=== PATIENT | female | born 1940 | race Asian ===

== ENCOUNTER 2020-01-18 16:15 | Emergency (ER) | payer MEDICARE, SELFPAY ==
[2020-01-18] VITALS (7 sets, daily range): BP systolic 87–141; BP diastolic 40–76; PULSE 70–104; RESP 16–20; TEMP 36; O2SAT 98–99
--- NOTE | ~2020-01-18 | CT_ITS ---
EXAMINATION: CT brain wo con INDICATION: Dizziness and confusion COMPARISON: None TECHNIQUE: Standard unenhanced head CT. The dose-length product (DLP) was 605.33 mGy-cm. The mA was a djusted according to patient size. Iterative reconstruction technique was employed. FINDINGS: There is no acute intraparenchymal hemorrhage. No evidence of mass lesion. No evidence of a cute infarction. There is moderate periventricular and subcortical hypodensity probably related to sm all vessel ischemic disease. There is moderate prominence of the sulci and ventricles related to cere bral atrophy. Intracranial calcified cerebral atherosclerosis is noted. There are no extra-axial raman ections. There is no mass effect or midline shift. The orbits and soft tissues are unremarkable. The visualized sinuses and mastoid air cells are well aerated. IMPRESSION: 1. No acute intracranial abnormality. 2. Age related findings. Reviewed, dictated and finalized at location A.
--- NOTE | ~2020-01-18 | XR_ITS ---
EXAMINATION: XR chest 2V DATE: 01/18/2020 18:22 INDICATION: Dizziness and headache TECHNIQUE: AP and lateral views of the chest are obtained. COMPARISON: 08/14/2014 FINDINGS: There are minimal airspace opacities of the lower lung zones. There is no pleural effusion or pneumothorax. The cardiomediastinal silhouette is normal. There is moderate thoracic spondylosis. Calcified atherosclerosis is noted. IMPRESSION: 1. Airspace opacities of the lower lung zones, consistent with atelectasis versus pneumonia. Reviewed, dictated and finalized at location A. IMPRESSION: 1. Airspace opacities of the lower lung zones, consistent with atelectasis vers us pneumonia.
--- NOTE | 2020-01-18 16:47 | ECG_ITS ---
Measurements Intervals [place] Rate: 43 P: 50 KS: 150 QRS: -25 QRSD: 85 T: 33 QT: 382 QTc: 325 Interpretive Statements SINUS RHYTHM BORDERLINE R WAVE PROGRESSION, ANTERIOR LEADS INFERIOR INFARCT, AGE INDETERMINATE BASELINE WANDER- I, II, AVR, AVL, AVF ABNORMAL ECG Electronically Signed On 01-18-2020 17:09:33 CDT by Efrem Kolb D.O.
[2020-01-18 16:57] LABS: Basophils Percent Auto 0.5 % (0.2-1.2); Eosinophils Percent Auto 0.6 % (0-4.4); Hematocrit 43.9 % (37.0-47.0); Immature Granulocyte Absolute 0.03 K/mm3 (0.00-0.031); Immature Granulocyte Percent A 0.5 % (0-0.5); Lymphocytes Absolute Auto 1.55 K/mm3 (0.9-3.2); Lymphocytes Percent Auto 24.2 % (18.3-44.2); Mean Corpuscular HGB Conc 31.9 g/dl (32-36); Mean Corpuscular Hemoglobin 28.2 pg (26-34); Mean Corpuscular Volume 88.5 fl (80-100); Mean Platelet Volume 9.9 fl (7.4-10.4); Monocytes Absolute Auto 0.5 K/mm3 (0.1-0.6); Monocytes Percent Auto 7.8 % (2.6-8.5); Neutrophils Absolute Auto 4.3 K/mm3 (1.3-6.7); Neutrophils Percent Auto 66.4 % (45.5-73.1); Platelet Count Result 227 k/mm3 (150-375); Red Blood Count 4.96 M/mm3 (4.2-5.4); White Blood Count 6.4 K/mm3 (4.5-10.0)
[2020-01-18 17:08] LABS: Anion Gap 13 mmol/L (8-16); Blood Urea Nitrogen 21 mg/dL (7-17); Calcium 9.6 mg/dL (8.4-10.2); Carbon Dioxide 23 mmol/L (22-30); Chloride 109 mmol/L (98-107); Estimated CRCL calculation 30 ml/min; Estimated Glomerular Filt Rate 48; Glucose 153 mg/dL (65-105); Potassium 4.7 mmol/L (3.4-5.0); Sodium 145 mmol/L (137-145)
--- NOTE | 2020-01-18 17:54 | ED.DIZZY ---
HPI - Dizziness General Chief Complaint: Dizziness Stated Complaint: dizzy Time Seen by Provider: 01/18/20 17:43 Source: patient Mode of arrival: wheelchair Limitations: language barrier (daughter is at bedside translating) and dementia History of Present Illness HPI Narrative: Patient presents to the emergency department for lightheadedness. Per daughter patient was reporting she was dizzy to her today. Reports she tells her this after she takes her Ativan sometimes. Denies fever, headache, chest pain, shortness of breath, vomiting, or dysuria. Related Data Home Medications Medication Instructions Recorded Confirmed carbidopa-levodopa tablet PO DAILY 01/18/20 letrozole mg DAILY 01/18/20 lorazepam DAILY 01/18/20 losartan DAILY 01/18/20 memantine mg DAILY 01/18/20 quetiapine HS 01/18/20 Allergies Allergy/AdvReac Type Severity Reaction Status Date / Time haloperidol Allergy Severe Difficulty Verified 01/18/20 16:34 Breathing Review of Systems Review of Systems: Narrative: CONSTITUTIONAL: Denies fever EYES: Denies visual changes CARDIOVASCULAR: Denies chest pain RESPIRATORY: Denies dyspnea. GASTROINTESTINAL: Denies vomiting GENITOURINARY: Denies dysuria All systems reviewed & are unremarkable except as noted in HPI and below PMFSH Past Medical History Medical History (Updated 01/18/20 @ 19:57 by Isaura Vela PA-C) History of anxiety History of dementia History of hypertension History of Parkinson's disease Social History Social History Gender identity (if verbalized by the patient): Female Exam Narrative: Exam Narrative: GENERAL: Well-appearing, well-nourished, and in no acute distress. HEAD: Normocephalic, atraumatic. EYES: PERRLA and EOMI. ENT: Nares clear, no rhinorrhea or epistaxis. Mucous membranes moist. Oropharynx without tonsillar hypertrophy exudate or other lesions. Bilateral TMs pearly lopez non-bulging NECK: Supple. No adenopathy or masses. CHEST: Clear to auscultation. No respiratory distress. No wheezes rales or rhonchi HEART: Regular rate and rhythm. No murmur heard. Normal peripheral pulses. ABDOMEN: Soft, nontender, nondistended, normal active bowel sounds. EXTREMITIES: Normal range of motion. No edema. SKIN: Warm, dry, no rash. NEURO: No focal deficits. Alert and oriented x3. PSYCH: Normal mood and affect Course Vital Signs Vital signs: Vital Signs Temperature 96.8 F L 01/18/20 16:28 Pulse Rate 94 01/18/20 16:28 Respiratory Rate 16 01/18/20 16:28 Blood Pressure 87/60 L 01/18/20 16:28 Pulse Oximetry 99 01/18/20 16:28 Temperature 96.8 F L 01/18/20 16:28 Pulse Rate 99 01/18/20 19:02 Respiratory Rate 20 01/18/20 19:02 Blood Pressure 127/75 01/18/20 19:02 Pulse Oximetry 99 01/18/20 19:02 MDM - Dizziness MDM Narrative Medical decision making narrative: Patient presents to the emergency department for lightheadedness. Per daughter patient reports this sometimes when she takes her Ativan. Patient was orthostatic on arrival. Given IV fluids in the ED with relief of her symptoms. CBC without acute findings. Metabolic panel with creatinine of 1.1 and BUN of 21. Possible mild dehydration, although I do not have any recent labs to know her baseline kidney function. UA is without evidence of infection. Chest x-ray shows atelectasis versus pneumonia. Patient denies any fever cough. CT scan of the brain is without acute findings. EKG with nonspecific ST changes. Patient does not have any chest pain. Patient and family updated on case findings. Patient reports she is feeling better and would like to go home. Patient is stable and felt appropriate for further outpatient evaluation. She was given warnings to return to the ER Lab Data Attestation: I reviewed the patient's lab results. Result diagrams: 01/18/20 16:50 01/18/20 16:50 Labs: Lab Results 01/18/20 01/18/20 01/18/20 Range/Units 16:50 16:
[2020-01-18] MEDS: MECLIZINE HCL 25 MG TABLET PO (18:34)
[2020-01-18] MEDS: SODIUM CHLORIDE 0.9% IV 1,000 ML 999 ML IV CONT (18:34)
[2020-01-18 19:02] LABS: Add Urine Microscopic? YES; Appearance Urine Clear (Clear); Bilirubin Urine Negative (Negative); Blood Urine Negative (Negative); Color Urine Yellow (Yellow); Glucose Urine UA Negative (Negative); Hyaline Casts Urine 30-49 /lpf; Ketones Urine Trace mg/dL (Negative); Leukocyte Esterase Ur Negative LEU/UL (Negative); Mucus Urine Few /lpf; Nitrate Urine Negative (Negative); Protein Urine 1+ mg/dL (Negative); Specific Grav Ur 1.021 (1.001-1.035); Squamous Epithelial Cell Urine Rare /hpf (Few); Urobilinogen Urine Negative mg/dL (<2.0)
== END 2020-01-18 20:49 | disposition home or self-care (01) ==
PROVIDERS: Physician Assistant; Emergency Provider Emergency Medicine; PCP Family Medicine
DX: I95.1 Orthostatic hypotension (principal); F41.9 Anxiety disorder, unspecified; F03.90 Unspecified dementia, unspecified severity, without behavioral disturbance, psychotic disturbance, mood disturbance, and anxiety; I10 Essential (primary) hypertension; G20 Parkinson's disease; R91.8 Other nonspecific abnormal finding of lung field; R94.31 Abnormal electrocardiogram [ECG] [EKG]
CPT/HCPCS: 36415; 51701; 70450; 71046; 80048; 81001; 85025; 93005; 99284; A9270; J7030

== ENCOUNTER 2020-06-25 09:48 | Outpatient (CLI) | payer MEDICARE, SELFPAY | END 2020-06-25 09:49 | disposition home or self-care (01) | PROVIDERS: PCP Family Medicine | DX: Z23 Encounter for immunization (principal) | CPT/HCPCS: 0001A; 91300 ==

== ENCOUNTER 2020-07-16 09:48 | Outpatient (CLI) | payer MEDICARE, SELFPAY | END 2020-07-16 09:49 | disposition home or self-care (01) | LOC: ANHCOVIDVC 09:48 | PROVIDERS: PCP Family Medicine | DX: Z23 Encounter for immunization (principal) | CPT/HCPCS: 0002A; 91300 ==

== ENCOUNTER 2021-11-12 00:45 | Emergency (ER) | payer MEDICARE, SELFPAY ==
[2021-11-12 00:48] VITALS: BP 111/60; PULSE 79; RESP 22; TEMP 38.1; O2SAT 98
--- NOTE | 2021-11-12 01:03 | ED.GENADULT ---
HPI - General Adult General Chief complaint: Nausea/Vomiting/Diarrhea Stated complaint: N/V Time Seen by Provider: 11/12/21 00:46 History of Present Illness HPI narrative: 81-year-old female presenting to the emergency department for evaluation of nausea and vomiting that started approximately 1 hour prior to arrival. Patient denies any associate abdominal pain. Patient has no current emesis in the emergency department. Patient denies any other pain or complaints. Related Data Home Medications Medication Instructions Recorded Confirmed carbidopa ER 50 mg-levodopa 200 mg tablet PO DAILY 01/18/20 tablet,extended release letrozole 2.5 mg tablet mg DAILY 01/18/20 lorazepam 1 mg tablet DAILY 01/18/20 losartan 100 mg tablet DAILY 01/18/20 memantine 10 mg tablet mg DAILY 01/18/20 quetiapine 200 mg tablet HS 01/18/20 Allergies Allergy/AdvReac Type Severity Reaction Status Date / Time haloperidol Allergy Severe Difficulty Verified 01/18/20 16:34 Breathing Review of Systems Review of Systems: CONSTITUTIONAL: Denies fever, chills, or sweats. EYES: Denies visual changes, redness, or discharge. ENT: Denies rhinorrhea, congestion, sore throat, or otalgia. CARDIOVASCULAR: Denies chest pain, palpitations, or edema. RESPIRATORY: Denies cough or dyspnea. GASTROINTESTINAL: Denies abdominal pain does report some nausea and vomiting. GENITOURINARY: Denies dysuria or hematuria. SKIN: Denies rash or itching. MUSCULOSKELETAL: Denies back pain, joint pain, or myalgia. NEUROLOGIC: Denies headache, numbness, or weakness. [facility] Past Medical History Medical History (Updated 11/12/21 @ 03:42 by Flaco Martin MD) History of anxiety History of dementia History of hypertension History of Parkinson's disease Social History Social History Gender identity (if verbalized by the patient): Female Exam Narrative: APPEARANCE: Well appearing, no pain, no distress, well-nourished. HEAD: normocephalic, atraumatic. EYES: PERRLA/EOMI, conjunctivae clear. NOSE: Normal no drainage NECK: Supple. No adenopathy, no masses. RESPIRATORY: Airway patent, respirations nonlabored. Clear to auscultation bilaterally, no rales, rhonchi, wheezing. CARDIOVASCULAR: Regular rate and rhythm without murmurs rubs or gallops. ABDOMINAL: Soft, nontender, nondistended, normal bowel sounds MUSCULOSKELETAL: Moves all extremities. Strength/ROM intact, No edema, No calf tenderness. NEURO: Alert. Cranial nerves II through XII intact. Grossly intact SKIN: Warm, dry. Normal Color Course Course Emergency Course: Patient is tolerating p.o. Patient denies any complaints at this time. Patient does feel improved compared to arrival. Patient and daughter were updated on the results of the work-up and plan for discharge with close follow-up. Vital Signs Vital signs: Vital Signs Temperature 100.5 F H 11/12/21 00:48 Pulse Rate 79 11/12/21 00:48 Respiratory Rate 22 H 11/12/21 00:48 Blood Pressure 111/60 11/12/21 00:48 Pulse Oximetry 98 11/12/21 00:48 Oxygen Delivery Room Air 11/12/21 00:48 Temperature 98.9 F 11/12/21 02:19 Pulse Rate 77 11/12/21 02:07 Respiratory Rate 14 11/12/21 02:07 Blood Pressure 118/60 11/12/21 02:07 Pulse Oximetry 100 11/12/21 02:07 Oxygen Delivery Room Air 11/12/21 00:48 Medical Decision Making Vital Signs Vital Signs: Vital Signs Temperature 100.5 F H 11/12/21 00:48 Pulse Rate 79 11/12/21 00:48 Respiratory Rate 22 H 11/12/21 00:48 Blood Pressure 111/60 11/12/21 00:48 Pulse Oximetry 98 11/12/21 00:48 Oxygen Delivery Room Air 11/12/21 00:48 Temperature 98.9 F 11/12/21 02:19 Pulse Rate 77 11/12/21 02:07 Respiratory Rate 14 11/12/21 02:07 Blood Pressure 118/60 11/12/21 02:07 Pulse Oximetry 100 11/12/21 02:07 Oxygen Delivery Room Air 11/12/21 00:48 Lab Data Lab results reviewed: Yes I reviewed the patient's lab results. Result ana
[2021-11-12 01:21] LABS: Basophils Absolute Auto 0.1 K/mm3 (0.0-0.1); Basophils Percent Auto 0.5 % (0.2-1.2); Eosinophils Absolute Auto 0.1 K/mm3 (0-0.3); Eosinophils Percent Auto 0.5 % (0-4.4); Hematocrit 37.9 % (37.0-47.0); Hemoglobin 12.3 g/dL (12.0-15.0); Immature Granulocyte Absolute 0.11 K/mm3 (0.00-0.031); Immature Granulocyte Percent A 0.6 % (0-0.5); Lymphocytes Absolute Auto 1.58 K/mm3 (0.9-3.2); Lymphocytes Percent Auto 8.4 % (18.3-44.2); Mean Corpuscular HGB Conc 32.5 g/dl (32-36); Mean Corpuscular Hemoglobin 27.4 pg (26-34); Mean Corpuscular Volume 84.4 fl (80-100); Mean Platelet Volume 9.6 fl (7.4-10.4); Monocytes Absolute Auto 1.3 K/mm3 (0.1-0.6); Monocytes Percent Auto 6.9 % (2.6-8.5); Neutrophils Absolute Auto 15.7 K/mm3 (1.3-6.7); Neutrophils Percent Auto 83.1 % (45.5-73.1); Platelet Count Result 173 k/mm3 (150-375); Red Blood Count 4.49 M/mm3 (4.2-5.4); White Blood Count 18.9 K/mm3 (4.5-10.0)
[2021-11-12] MEDS: SODIUM CHLORIDE 0.9% IV 1,000 ML 999 ML IV CONT (01:24)
[2021-11-12] MEDS: ONDANSETRON INJ 4 MG/2 ML VIAL IV PUSH (01:24)
[2021-11-12 01:30] LABS: Lactic Acid Reflex 1.9 mmol/L (0.7-2.0)
[2021-11-12 01:31] LABS: Alanine Aminotransferase 12 U/L (6-35); Albumin Level 4.3 g/dL (3.5-5.1); Alkaline Phosphatase 73 U/L (38-126); Anion Gap 8 mmol/L (8-16); Aspartate Amino Transferase 26 U/L (14-36); Bilirubin,Total 1.1 mg/dL (0.2-1.3); Blood Urea Nitrogen 19 mg/dL (7-17); Calcium 8.9 mg/dL (8.4-10.2); Carbon Dioxide 26 mmol/L (22-30); Chloride 103 mmol/L (98-107); Estimated Glomerular Filt Rate 39; Glucose 132 mg/dL (65-110); Lipase 34 U/L (23-300); Potassium 3.1 mmol/L (3.4-5.0); Sodium 137 mmol/L (137-145)
[2021-11-12 01:57] LABS: SARS-CoV-2 RNA PCR Negative
[2021-11-12 02:07] VITALS: BP 118/60; PULSE 77; RESP 14; O2SAT 100
[2021-11-12 02:19] VITALS: TEMP 37.2
[2021-11-12 03:32] LABS: Appearance Urine Clear (Clear); Bilirubin Urine 1+ (Negative); Blood Urine 1+ (Negative); Color Urine Yellow (Yellow); Glucose Urine UA Trace mg/dL (Negative); Ketones Urine Negative (Negative); Leukocyte Esterase Ur Negative LEU/UL (Negative); Nitrate Urine Negative (Negative); Protein Urine 1+ mg/dL (Negative); Specific Grav Ur >= 1.030 (1.001-1.035); Urobilinogen Urine 0.2 mg/dL (<2.0); pH Urine 5.5 (5.0-9.0)
[2021-11-12 03:36] LABS: Add Urine Microscopic? YES; Bacteria Urine Trace /hpf; Mucus Urine Rare /lpf
== END 2021-11-12 04:30 | disposition home or self-care (01) ==
PROVIDERS: Emergency Provider Emergency Medicine; PCP Family Medicine
DX: R11.2 Nausea with vomiting, unspecified (principal); Z20.822 Contact with and (suspected) exposure to COVID-19; F03.90 Unspecified dementia, unspecified severity, without behavioral disturbance, psychotic disturbance, mood disturbance, and anxiety; I10 Essential (primary) hypertension; G20 Parkinson's disease; F41.9 Anxiety disorder, unspecified
CPT/HCPCS: 36415; 51701; 80053; 81001; 83605; 83690; 85025; 96361; 96365; 96375; 99284; C9803; J0131; J2405; J7030; U0003; U0005

== ENCOUNTER 2022-01-11 10:00 | Outpatient (RCR) | payer MEDICARE, SELFPAY ==
--- NOTE | 2021-12-14 11:22 | PTOPEVAL ---
PHYSICAL THERAPY INITIAL EVALUATION. Thank you for referring Debbie Trejo to [facility].? The patient is scheduled to be seen for therapy? 1x/week for 4 weeks. Please review, sign, date and return this plan of care RUMA. I agree with and certify that the following plan of care is medically necessary. Referring Physician Date Attending Provider: Kelton Hallman MD *PT Outpatient Evaluation Start: 12/14/21 Evaluation Information Diagnosis Parkinson's, decreased mobility Additional Evaluation Detail Subjective history received from patients daughter Davina Yates with pts verbal consent. Subjective Information Per daughter pt has Parkinson' Query Text:As Reported By Patient/ s, severe dementia, paranoia, Family and is on high level of anti- depressants. Pt lives at home with her daughter and walks with a rollator. Pt states every morning after breakfast they walk laps in their home together. Pts daughter states the goals is to get her to be stronger so she does not become eventually bedridden. Pain Assessment Pain Score 0: Self Report Upper Extremity Range of Motion Gross Upper Extremity Range of Motion able to touch head, shoulders, Comments low back, and toes Lower Extremity Range of Motion General Lower Extremity Range of Motion WFL/Left,WFL/Right Gross Lower Extremity Range of Motion WFL through functional Comments assessment - pt unable to follow consistent direction for formal assessment Lower Extremity Muscle Strength Testing Gross Lower Extremity Strength Grossly 3+/5 pt unable to follow consistent direction for formal assessment Upper Extremity Muscle Strength Testing Gross Upper Extremity Strength Comments grossly 3+/5 pt unable to follow consistent direction for formal assessment Balance Assessment Tinetti Balance Assessment Tinetti Composite Score (Balance + Gait) Interpretation of Scores High risk for falls(< 19) Time Up Go (TUG) Timed Up and Go Test (TUG) (Seconds) 59 Assistive Devices Walker, Wheeled Comments SBA for safety during sit to stand and during turning 5 Time Sit to Stand Time in Seconds 32 5 Time Sit to Stand Comments With use of UEs, lack of Query Text:Normative Data: If Greater terminal knee extension during Than 15 Seconds,
--- NOTE | 2022-01-11 12:36 | PTOPPROG ---
Assessment and note entered by Moses Wilson, PT, DPT Evaluation Information Assessment Status Progress Diagnosis Parkinson's Subjective Information Pt daughter states she has been getting up by herself more and walking around the house more. Pt daughter states she is walking without the use of an AD. Daughter reports no recent falls. She also reports she has improved in her ability to feed herself and lift her glass to take a drink, she was not doing this prior. Daughter also states her mother has gone to the bathroom and pulled up her pants on her own, and can also get into the shower without physical assist. Pt daughter states she is still fearful of her walking too far without supervision. Assessment PT Clinical Summary Debbie and her daughter Davina Yates present to therapy today for Debbie's progress report following 4 visits of skilled therapy to treat her decreased mobility d/t advancing Parkinson's. Today her daughter reports improved independence at home. She demonstrates improved times during her TUG and 5xSTS but this remains at a high risk of falls. Pt demonstrates decreased LE strength and muscle endurance but this is improving. Continuation of skilled physical therapy services are indicted to continue strengthening, to improve safety with functional mobility, to improve balance, and to promote independence with functional mobility. Plan of Care Interventions Gait Training,Neuro Re-education,Patient/Caregiver Educati,Therapeutic Activities,Therapeutic Exercise PT Services Indicated Yes Treatment Frequency and every other week for 2 months Duration These treatments will address the objective and functional deficits as defined above. The patient will be advanced safely and appropriately in order for the patient to progress towards his/her prior level of function. Additional exercises will be introduced and as well as a comprehensive home exercise program upon discharge, if needed, ?to ensure carryover of functional gains achieved in the clinic. This treatment plan has been reviewed and agreement upon by the patient.
== END 2022-03-14 23:59 | disposition home or self-care (01) ==
LOC: ANHPT 10:00
PROVIDERS: PCP Family Medicine; Visit Provider Family Medicine
DX: R26.9 Unspecified abnormalities of gait and mobility (principal)
CPT/HCPCS: 97110; 97112; 97116; 97162; 97530

== ENCOUNTER 2022-04-05 09:36 | Inpatient (IN) | payer MEDICARE, SELFPAY ==
[2022-04-05] VITALS (12 sets, daily range): BP systolic 142–203; BP diastolic 71–126; PULSE 75–100; RESP 12–29; TEMP 37.2–37.6; O2SAT 96–98
--- NOTE | ~2022-04-05 | US_ITS ---
EXAMINATION: US carotid duplex BI DATE: 04/06/2022 17:29 INDICATION: Infarct in right caudate nucleus. TECHNIQUE: Grayscale, color Doppler, and pulsed Doppler images of the cervical carotid arteries were obtained. The degree of vessel stenosis is placed in one of the following categories: normal, <50%, 5 0-69%, >=70% but less than near-occlusion, near-occlusion, or total occlusion. Note that percent sten osis relative to normal distal artery lumen diameter is indirectly measured from velocity measurement s as described by Sumit, et al. Radiology 2003; 229:340-346. COMPARISON: None. FINDINGS: RIGHT: The right common carotid artery (CCA) peak systolic velocity (PSV) is 88 cm/s. The right internal car otid artery (ICA) PSV is 140 cm/s. The right ICA end-diastolic velocity (EDV) is 31 cm/s. The right I CA/CCA PSV ratio is 1.6. Grayscale and color Doppler images yield an estimate of <50% diameter reduct ion from plaque in the ICA. There is antegrade flow in the right vertebral artery. LEFT: The left CCA PSV is 138 cm/s. The left ICA PSV is 147 cm/s. The left ICA EDV is 33 cm/s. The left ICA /CCA PSV ratio is 1.1. Grayscale and color Doppler images yield an estimate of <50% diameter reductio n from plaque in the ICA. There is antegrade flow in the left vertebral artery. IMPRESSION: 1. <50% stenosis in the right internal carotid artery. 2. <50% stenosis in the left internal carotid artery. Reviewed, dictated and finalized at location A. INE HEDDLE CLEANER
--- NOTE | ~2022-04-05 | XR_ITS ---
EXAMINATION: XR abdomen/kub 1V INDICATION: Nausea and vomiting TECHNIQUE: Supine view of the abdomen is obtained. COMPARISON: None FINDINGS: There is no free intraperitoneal gas or evidence of bowel obstruction. The bowel gas patter n is normal. A left pelvic calcification likely reflects a calcified uterine fibroid. 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 Phleboliths are noted in the pelvis. IMPRESSION: 1. No radiographic correlate for the patient's symptoms. Reviewed, dictated and finalized at location A. WARE DEVELOPER
--- NOTE | ~2022-04-05 | CT_ITS ---
EXAMINATION: CT brain wo con DATE: 04/05/2022 10:58 INDICATION: Dizziness. TECHNIQUE: Computed tomography (CT) of the head was performed without intravenous contrast. The mA wa s adjusted according to patient size. Iterative reconstruction technique was employed. The dose-lengt h product was 832.33 mGy-cm. COMPARISON: Head CT 01/18/2020 FINDINGS: There is diffuse brain volume loss. There are scattered areas of low attenuation in the cer ebral white matter, which is within normal limits for the patient's age. There is an old lacunar infa rct in right caudate nucleus. There is no intracranial hemorrhage, acute infarction, or abnormal intr acranial mass lesion. The ventricles are normal in size. The orbits are normal. There is mild mucosal thickening in the ethmoid sinuses. The mastoid air cells are normal. There is a likely implant in th e nose. IMPRESSION: 1. 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 Reviewed, dictated and finalized at location A. Y TABLE OPERATOR
--- NOTE | 2022-04-05 09:41 | ECG_ITS ---
Measurements Intervals [place] Rate: 80 P: 47 MI: 159 QRS: -20 QRSD: 82 T: 26 QT: 377 QTc: 436 Interpretive Statements SINUS RHYTHM INFERIOR MYOCARDIAL INFARCTION , PROBABLY OLD [40+ ms Q WAVE AND/OR ST/T ABNORMALITY IN II/aVF] COMPARED TO ECG 01/18/2020 16:48:22 NO SIGNIFICANT CHANGES Electronically Signed On 04-05-2022 16:32:57 [employer] DIRECTOR by Liyah Hodge M.D.
[2022-04-05 09:57] LABS: Basophils Percent Auto 0.4 % (0.2-1.2); Eosinophils Absolute Auto 0.2 K/mm3 (0-0.3); Eosinophils Percent Auto 2.1 % (0-4.4); Hematocrit 44.3 % (37.0-47.0); Hemoglobin 13.9 g/dL (12.0-15.0); Immature Granulocyte Absolute 0.03 K/mm3 (0.00-0.031); Immature Granulocyte Percent A 0.3 % (0-0.5); Lymphocytes Absolute Auto 3.27 K/mm3 (0.9-3.2); Lymphocytes Percent Auto 30.4 % (18.3-44.2); Mean Corpuscular HGB Conc 31.4 g/dl (32-36); Mean Corpuscular Hemoglobin 28.9 pg (26-34); Mean Corpuscular Volume 92.1 fl (80-100); Mean Platelet Volume 9.8 fl (7.4-10.4); Monocytes Absolute Auto 0.6 K/mm3 (0.1-0.6); Monocytes Percent Auto 5.8 % (2.6-8.5); Neutrophils Absolute Auto 6.6 K/mm3 (1.3-6.7); Platelet Count Result 176 k/mm3 (150-375); Red Blood Count 4.81 M/mm3 (4.2-5.4); Red Cell Distribution Width 13.4 % (11.5-14.5); White Blood Count 10.8 K/mm3 (4.5-10.0)
[2022-04-05 10:39] LABS: Add Urine Microscopic? YES; Appearance Urine Cloudy (Clear); Bilirubin Urine Negative (Negative); Blood Urine 1+ (Negative); Color Urine Yellow (Yellow); Glucose Urine UA Negative (Negative); Ketones Urine Negative (Negative); Leukocyte Esterase Ur 3+ LEU/UL (Negative); Nitrate Urine Positive (Negative); Protein Urine Trace mg/dL (Negative); Specific Grav Ur 1.015 (1.001-1.035); Urobilinogen Urine 0.2 mg/dL (<2.0)
[2022-04-05 10:41] LABS: Bacteria Urine 2+ /hpf; Mucus Urine Few /lpf; RBC Urine 21-50 /hpf (0-2); WBC Clumps Urine Present /HPF; WBC Urine >75 /hpf
--- NOTE | 2022-04-05 10:41 | ED.DIZZY ---
HPI - Dizziness General Chief Complaint: Dizziness Stated Complaint: dizzy/sick case Time Seen by Provider: 04/05/22 09:53 History of Present Illness HPI Narrative: 82-year-old female presenting to the emergency department for evaluation of dizziness. Patient told the daughter that she was having some dizziness but states that this dizziness has improved. Daughter states that the patient has also had increased confusion. Patient does have history of dementia. Upon arrival to the emergency department patient states that she was feeling dizzy but does not feel dizzy anymore. Patient is denying complaints at this time. Daughter states that the patient is still saying things that do not make sense. Patient was also hypertensive upon arrival to the emergency room. Daughter states that the primary care physician has not yet started medications for blood pressure because the patient's blood pressure is dynamic and off becomes hypotensive. Related Data Home Medications Medication Instructions Recorded Confirmed carbidopa ER 50 mg-levodopa 200 mg 50 - 200 tablet PO DAILY 01/18/20 04/05/22 tablet,extended release letrozole 2.5 mg tablet 2.5 mg PO DAILY 01/18/20 04/05/22 memantine 10 mg tablet 10 mg PO DAILY 01/18/20 04/05/22 quetiapine 100 mg tablet (Seroquel) 100 mg PO DAILY 04/05/22 04/05/22 Allergies Allergy/AdvReac Type Severity Reaction Status Date / Time haloperidol Allergy Severe Difficulty Verified 04/05/22 17:56 Breathing Review of Systems Review of Systems: CONSTITUTIONAL: Denies fever, chills, or sweats. EYES: Denies visual changes, redness, or discharge. ENT: Denies rhinorrhea, congestion, sore throat, or otalgia. CARDIOVASCULAR: Denies chest pain, palpitations, or edema. RESPIRATORY: Denies cough or dyspnea. GASTROINTESTINAL: Denies abdominal pain, nausea, vomiting, or diarrhea. GENITOURINARY: Denies dysuria or hematuria. SKIN: Denies rash or itching. MUSCULOSKELETAL: Denies back pain, joint pain, or myalgia. NEUROLOGIC: See HPI PSYCHIATRIC: Denies anxiety or depression. [facility] Past Medical History Medical History (Updated 04/05/22 @ 13:07 by Flaco Martin MD) History of anxiety History of dementia History of hypertension History of Parkinson's disease Family History Family History (Updated 04/05/22 @ 17:46 by Malinda Varela RN) Other Family history unknown Social History Social History Smoking status: Unknown if ever smoked Alcohol intake: never Substance use: never Substance use type: does not use Gender identity (if verbalized by the patient): Female Spiritual care concerns: No Exam Narrative: APPEARANCE: Well appearing, no pain, no distress, well-nourished. HEAD: normocephalic, atraumatic. EYES: PERRLA/EOMI, conjunctivae clear. NOSE: Normal no drainage EARS:TMS clear with good light reflex. THROAT: Pharynx clear, no exudate. NECK: Supple. No adenopathy, no masses. RESPIRATORY: Airway patent, respirations nonlabored. Clear to auscultation bilaterally, no rales, rhonchi, wheezing. CARDIOVASCULAR: Regular rate and rhythm without murmurs rubs or gallops. ABDOMINAL: Soft, nontender, nondistended, normal bowel sounds MUSCULOSKELETAL: Moves all extremities. Strength/ROM intact, No edema, No calf tenderness. NEURO: Alert. Cranial nerves II through XII intact. Grossly intact SKIN: Warm, dry. Normal Color PSYCHIATRIC: Normal affect/mood. Course Course Emergency Course: UA shows evidence of a urinary tract infection. Daughter feels that the patient is still confused. Patient's head CT was negative for acute intracranial abnormality. Patient is afebrile but does have a leukocytosis of 10.8. UA is significant for urinary tract infection. Is pending. Patient was started on antibiotics while in the emergency department. Patient was also negative for influenza RSV and COVID. Case was discussed with hospitalist and patient was accepted for admission for urinary trac
--- NOTE | 2022-04-05 10:51 | PC.NURSE ---
Pt to CT scan via stretcher at this time.
[2022-04-05] MEDS: hydrALAZINE HCL 20 MG/ML VIAL 10 MG IV PUSH (11:27)
[2022-04-05 11:49] LABS: Alanine Aminotransferase 19 U/L (6-35); Albumin Level 4.8 g/dL (3.5-5.1); Alkaline Phosphatase 86 U/L (38-126); Anion Gap 5 mmol/L (8-16); Aspartate Amino Transferase 31 U/L (14-36); Bilirubin,Total 0.5 mg/dL (0.2-1.3); Blood Urea Nitrogen 16 mg/dL (7-17); Calcium 9.5 mg/dL (8.4-10.2); Carbon Dioxide 31 mmol/L (22-30); Chloride 104 mmol/L (98-107); Estimated CRCL calculation 30 ml/min; Estimated Glomerular Filt Rate 60; Glucose 103 mg/dL (65-110); Potassium 4.3 mmol/L (3.4-5.0); Sodium 140 mmol/L (137-145)
[2022-04-05 12:15] LABS: Influenza A QL RT-PCR Negative (Negative); Influenza B QL RT-PCR Negative (Negative); RSV RNA, RT-PCR Negative (Negative); SARS-CoV-2 RNA PCR Negative
--- NOTE | 2022-04-05 14:45 | PM.IMHP ---
H&P: HPI History of Present Illness Date/Time: 04/05/22 14:45 Chief Complaint: Dizziness and nausea. Narrative: This is a pleasant 82-year-old female with history of Parkinson's disease, dementia, hypertension, anxiety, depression who presented to the emergency department from home for evaluation of dizziness and nausea. Given her dementia and increasing confusion from current illness, she is not the greatest historian and tends to revert back to her atka Tagalog though she can speak Kyrgyz. Her daughter Leigh helps provide history with the patient's permission. Daughter remarks that she is not always able to express her symptoms at baseline either. Yesterday the patient complained of dizziness, nausea, and loose stools and seemed to feel better after drinking 7 up. This morning she was once again complaining of nausea and daughter thought she looked sick and pale and she brought her in for evaluation. She was afebrile on arrival with stable vital signs. Urine was positive for nitrates, leukocyte esterase, bacteria, and white blood cells. She is being admitted in this setting for IV antibiotics. With further questioning the patient does endorse having dysuria for a couple of days. She is feeling better at this time. She denies fever, chills, sweats, and diarrhea. She has not had any abdominal pain. Review of Systems Review of Systems: Twelve systems were reviewed and are negative except for as per HPI. [facility] Past Medical History Medical History (Updated 04/05/22 @ 21:31 by Laine Espino PA-C) Anxiety and depression Breast cancer Cerebrovascular accident Dementia Hypertension Parkinsons disease Surgical History Surgical History (Updated 04/05/22 @ 21:24 by Laine Espino PA-C) History of lumpectomy Family History Family History (Updated 04/05/22 @ 21:24 by Laine Espino PA-C) Other Hypertension Social History Social History (Updated 04/05/22 @ 21:25 by Laine Espino PA-C) Social History: Surrogate medical decision maker: Leigh Maldonado, daughter. Code status: Full code. Smoking status: Never smoker Alcohol intake: never Substance use: never Substance use type: does not use Additional living arrangements comments: Originally from the [facility]. She has 4 children. Lives with daughter Leigh. 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 Spiritual care concerns: No Meds Home Medications and Allergies Home Medications Medication Instructions Recorded Confirmed Type carbidopa ER 50 mg-levodopa 200 mg 50 - 200 tablet PO DAILY 01/18/20 04/05/22 History tablet,extended release letrozole 2.5 mg tablet 2.5 mg PO DAILY 01/18/20 04/05/22 History memantine 10 mg tablet 10 mg PO DAILY 01/18/20 04/05/22 History quetiapine 100 mg tablet (Seroquel) 100 mg PO DAILY 04/05/22 04/05/22 History Allergies Allergy/AdvReac Type Severity Reaction Status Date / Time haloperidol Allergy Severe Difficulty Verified 04/05/22 17:56 Breathing Vital Signs Vital Signs - 24 hr 04/05/22 09:42 04/05/22 09:53 04/05/22 10:01 Temperature 99 F Pulse Rate 93 77 75 Respiratory Rate 20 12 Blood Pressure 203/91 H 193/74 H Pulse Oximetry 98 98 Oxygen Delivery Room Air 04/05/22 11:29 04/05/22 10:47 04/05/22 12:00 Temperature Pulse Rate 84 75 89 Respiratory Rate 20 29 H 16 Blood Pressure 185/77 H 142/120 H Pulse Oximetry 97 98 Oxygen Delivery 04/05/22 12:16 04/05/22 13:01 04/05/22 13:32 Temperature Pulse Rate 91 93 96 Respiratory Rate 21 H 17 22 H Blood Pressure 144/93 H 149/126 H 155/78 H Pulse Oximetry 97 Oxygen Delivery 04/05/22 14:50 04/05/22 17:07 Temperature Pulse Rate 100 93 Respiratory Rate 24 H 20 Blood Pressure 167/84 H 167/71 H Pulse Oximetry 98 97 Oxygen Delivery Exam Const: Other: Well-developed, mildly ill-appearing female supine in be
--- NOTE | 2022-04-05 17:44 | ADMGEN ---
This patient, Debbie Trejo, was admitted to [facility] Surg Room 316-01. Patient/family oriented to hospital policies and general routines including ID bracelet, bed and alarms, visiting hours, pain management, procedures, bathroom and other care routines, personal items, smoking policy, room service/diet, and visiting hours. Information on how to activate the Rapid Response Team has been discussed. Patient/Family are encouraged to report perceived risks to care and to ask questions if they do not understand what they are told or what they should do.
[2022-04-06 06:00] VITALS: BP 183/82; PULSE 67; RESP 13; TEMP 36.3; O2SAT 98
[2022-04-06] MEDS: hydrALAZINE HCL 20 MG/ML VIAL 10 MG IV PUSH (06:56)
[2022-04-06 08:00] VITALS: BP 119/62
[2022-04-06 08:03] VITALS: BP 101/63
[2022-04-06] MEDS: MEMANTINE 10 MG TABLET PO (08:29)
[2022-04-06] MEDS: QUEtiapine FUMARATE 100 MG TABLET PO (08:30)
[2022-04-06] MEDS: LETROZOLE (*CHEMO) 2.5 MG TABLET PO (08:30)
[2022-04-06] MEDS: CARBIDOPA/LEVODOPA 25/100 MG CR TABLET 2 TABLET PO (08:30)
--- NOTE | 2022-04-06 10:30 | P.PNIM_ITS ---
Progress Note: A&P Assessment and Plan (1) Urinary tract infection: Code(s): N39.0 - Urinary tract infection, site not specified Status: Acute Assessment and Plan: * presented with complaints of confusion * UA did appear infectious * continue ceftriaxone for now * awaiting urine culture * adjust therapy to sensitivities (2) Dizziness: Code(s): R42 - Dizziness and giddiness Status: Acute Assessment and Plan: * head CT shows old CVAs * fall precautions * orthostatics appear to be positive for hypotension * continue trend blood pressure * carotid Dopplers ordered (3) Hypertension: Code(s): I10 - Essential (primary) hypertension Status: Acute Assessment and Plan: * blood pressures have been noted to be elevated, this morning 183/82 * blood pressure currently stable at 101 systolic * continue to trend * hydralazine p.r.n. with parameters * probably high due to disorientation (4) Parkinsons disease: Code(s): G20 - Parkinson's disease Status: Acute Assessment and Plan: * Continue carbidopa-levodopa. * Initiate fall precautions. * Bedside swallow just showed problems with dentures (5) Dementia: Code(s): F03.90 - Unspecified dementia, unspecified severity, without behavioral disturbance, psychotic disturbance, mood disturbance, and anxiety Status: Acute Assessment and Plan: * Continue memantine and quetiapine. (6) Heart murmur: Code(s): R01.1 - Cardiac murmur, unspecified Status: Acute Assessment and Plan: * Echo ordered Plan Miralax and suppository ordered, looks to be either constipation or gas build up causing nausea Time Spent With Patient Time with patient: Greater than 35 minutes Subjective Date/time seen: 04/06/22 1030 Interval history: 04/06/22 1030 Patient was resting in bed comfortably. Daughter was present. Patient is still complaining of nausea. It was also noted that patient has not been eating much however her dentures are very loose in her mouth. She denies any chest pain, shortness a breath, vomiting, diarrhea, weakness or fatigue. She does state that she could be constipated. Daughter did state that she does but MiraLax on her milk in the morning to help her have bowel movements. She was probably roxy und A&O x1. 04/05/22? 14:45 This is a pleasant 82-year-old female with history of Parkinson's disease, dementia, hypertension, anxiety, depression who presented to the emergency department from home for evaluation of dizziness and nausea. Given her dementia and increasing confusion from current illness, she is not the greatest historian and tends to revert back to her [place] Tagalog though she can speak Ukrainian. Her daughter Leigh helps provide history with the patient's permission. Daughter remarks that she is not always able to express her symptoms at baseline either. Yesterday the patient complained of dizziness, nausea, and loose stools and seemed to feel better after drinking 7 up. This morning she was once again complaining of nausea and daughter thought she looked sick and pale and she brought her in for evaluation. She was afebrile on arrival with stable vital signs. Urine was positive for nitrates, leukocyte
--- NOTE | 2022-04-06 10:30 | PM.IMPN ---
Progress Note: A&P Assessment and Plan (1) Urinary tract infection: Code(s): N39.0 - Urinary tract infection, site not specified Status: Acute Assessment and Plan: presented with complaints of confusion UA did appear infectious continue ceftriaxone for now awaiting urine culture adjust therapy to sensitivities (2) Dizziness: Code(s): R42 - Dizziness and giddiness Status: Acute Assessment and Plan: head CT shows old CVAs fall precautions orthostatics appear to be positive for hypotension continue trend blood pressure carotid Dopplers ordered (3) Hypertension: Code(s): I10 - Essential (primary) hypertension Status: Acute Assessment and Plan: blood pressures have been noted to be elevated, this morning 183/82 blood pressure currently stable at 101 systolic continue to trend hydralazine p.r.n. with parameters probably high due to disorientation (4) Parkinsons disease: Code(s): G20 - Parkinson's disease Status: Acute Assessment and Plan: Continue carbidopa-levodopa. Initiate fall precautions. Bedside swallow just showed problems with dentures (5) Dementia: Code(s): F03.90 - Unspecified dementia, unspecified severity, without behavioral disturbance, psychotic disturbance, mood disturbance, and anxiety Status: Acute Assessment and Plan: Continue memantine and quetiapine. (6) Heart murmur: Code(s): R01.1 - Cardiac murmur, unspecified Status: Acute Assessment and Plan: Echo ordered Plan Miralax and suppository ordered, looks to be either constipation or gas build up causing nausea Time Spent With Patient Time with patient: Greater than 35 minutes Subjective Date/time seen: 04/06/22 1030 Interval history: 04/06/22 1030 Patient was resting in bed comfortably. Daughter was present. Patient is still complaining of nausea. It was also noted that patient has not been eating much however her dentures are very loose in her mouth. She denies any chest pain, shortness a breath, vomiting, diarrhea, weakness or fatigue. She does state that she could be constipated. Daughter did state that she does but MiraLax on her milk in the morning to help her have bowel movements. She was probably around A&O x1. 04/05/22? 14:45 This is a pleasant 82-year-old female with history of Parkinson's disease, dementia, hypertension, anxiety, depression who presented to the emergency department from home for evaluation of dizziness and nausea. Given her dementia and increasing confusion from current illness, she is not the greatest historian and tends to revert back to her [place] Tagalog though she can speak Yemeni. Her daughter Leigh helps provide history with the patient's permission. Daughter remarks that she is not always able to express her symptoms at baseline either. Yesterday the patient complained of dizziness, nausea, and loose stools and seemed to feel better after drinking 7 up. This morning she was once again complaining of nausea and daughter thought she looked sick and pale and she brought her in for evaluation. She was afebrile on arrival with stable vital signs. Urine was positive for nitrates, leukocyte esterase, bacteria, and white blood cells. She is being admitted in this setting for IV antibiotics. With further questioning the patient does endorse having dysuria for a couple of days. She is feeling better at this time.? She denies fever, chills, sweats, and diarrhea. She has not had any abdominal pain. Review of Systems Review of Systems: All systems reviewed & are unremarkable except as noted in HPI and below Exam Narrative: General: well-nourished, well-appearing 82-year-old female, Lying in bed, comfortable, NARD Neuro: awake, alert and oriented x1, speech michael
[2022-04-06] MEDS: polyethylene glycoL 3350 17 GM POWD.PACK PO (10:48)
[2022-04-06] MEDS: ONDANSETRON INJ 4 MG/2 ML VIAL IV PUSH (10:48)
--- NOTE | 2022-04-06 11:19 | PCSTNOTE ---
Please refer to the Bedside Swallow Evaluation in the EMR. Please note, silent aspiration cannot be ruled out at bedside.
[2022-04-06 14:00] VITALS: BP 125/53; PULSE 91; RESP 14; TEMP 36; O2SAT 98
[2022-04-06] MEDS: BISACODYL 10 MG SUPPOSITORY RECTAL (15:07)
[2022-04-06 20:00] VITALS: BP 117/68; PULSE 80; RESP 16; TEMP 36.8; O2SAT 96
--- NOTE | 2022-04-06 21:36 | ECHO_ITS ---
Patient Info Name: Debbie Trejo Age: 82 years : 1940 Gender: Female Ht: 60 in Wt: 117 lbs BSA: 1.51 m2 HR: 67 bpm BP: 183 / 82 mmHg Heart Rhythm: Sinus Rhythm Technical Quality: Fair Exam Date: 04/06/2022 1:20 PM Exam Location: [facility] Exam Room: 316 Patient Status: Inpatient Admit Date: 04/05/2022 Staff Ordering Physician: Laine Espino PA-C Saturation Equipment Operator: Zulema Otto RCS Attending Provider: Hussein Klein MD Referring Physician: Srinivas MONAE; Exam Type: CA echo doppler color flow Study Info Indications - MURMUR HTN DIZZINESS Complete two-dimensional, color flow and Doppler transthoracic echocardiogram is performed. Summary 1. Complete two-dimensional, color flow and Doppler transthoracic echocardiogram is performed. 2. Normal left ventricular size with mild concentric hypertrophy. Hyperdynamic systolic function of all segments, ejection fraction 77%. No segmental wall motion abnormalities. Grade 2 diastolic dysfunction is present. 3. Left atrial chamber dimension is mildly enlarged. 4. There is moderate aortic valve stenosis with a peak velocity of 329 cm/s, mean gradient of 25 mmHg, and aortic valve area of 1.6 cm2. Moderate aortic valve calcification. 5. The mitral valve annulus is severely calcified, with no significant stenosis or regurgitation. 6. Mild pulmonary hypertension, estimated pulmonary arterial systolic pressure is 38 mmHg. 7. Calcified aortic root. 8. Normal sinus rhythm. Left Ventricle Left ventricular chamber dimension is mildly enlarged. Left ventricular systolic function is normal, estimated at >70%. There is mildly increased left ventricular wall thickness. Left ventricular septal wall motion is normal. The left ventricular diastolic function is grade II diastolic dysfunction. Right Ventricle Right ventricular chamber dimension is normal. Right ventricular systolic function is normal. Left Atria Left atrial chamber dimension is mildly enlarged. Right Atria Right atrial chamber dimension is normal. Aortic Valve The aortic valve is trileaflet. There is no aortic valve sclerosis. There is moderate aortic valve stenosis with a peak velocity of 329 cm/s, mean gradient of 25 mmHg, and aortic valve area of 1.6 cm2. Moderate aortic valve calcification. There is trace aortic valve regurgitation. There is moderate aortic valve calcification. Pulmonic Valve The pulmonic valve is normal. There is no pulmonic valve stenosis. There is no pulmonic regurgitation. Mitral Valve The mitral valve has thickened leaflets. There is no mitral valve stenosis. There is no mitral valve regurgitation. The mitral valve annulus is severely calcified, with no significant stenosis or regurgitation. Tricuspid Valve The tricuspid valve leaflets are normal. There is no significant tricuspid valve stenosis. There is trace tricuspid valve regurgitation. Mild pulmonary hypertension, estimated pulmonary arterial systolic pressure is 38 mmHg. Pericardium/Pleural The pericardium appears normal. There is no pericardial effusion. Inferior Vena Cava Normal inferior vena cava with >50% collapse upon inspiration consistent with Empty right atrial pressure, 10 mmHg. Aorta The aortic root size at the sinus of Valsalva is normal. The prox ascending aorta size is normal. Left Ventricular Outflow Tract Name
[2022-04-06 22:00] VITALS: BP 117/60; BP 90/58; PULSE 80; RESP 16; TEMP 36.8; O2SAT 96
[2022-04-07] VITALS (8 sets, daily range): BP systolic 101–149; BP diastolic 55–86; PULSE 63–89; RESP 16–20; TEMP 36.5–36.8; O2SAT 95–100
--- NOTE | 2022-04-07 08:45 | P.PNIM_ITS ---
Progress Note: A&P Assessment and Plan (1) Urinary tract infection: Code(s): N39.0 - Urinary tract infection, site not specified Status: Acute Assessment and Plan: * presented with complaints of confusion * UA did appear infectious * Change ceftriaxone to augmentin * urine culture grew E.coli * adjust therapy to sensitivities (2) Dizziness: Code(s): R42 - Dizziness and giddiness Status: Acute Assessment and Plan: * head CT shows old CVAs * fall precautions * orthostatics appear to be positive for hypotension * continue trend blood pressure * carotid Dopplers <50% bilaterally (3) Hypertension: Code(s): I10 - Essential (primary) hypertension Status: Acute Assessment and Plan: * blood pressures have been noted to be elevated, this morning 110/68 * continue to trend * hydralazine p.r.n. with parameters * probably high due to disorientation (4) Parkinsons disease: Code(s): G20 - Parkinson's disease Status: Acute Assessment and Plan: * Continue carbidopa-levodopa. * Initiate fall precautions. * Bedside swallow just showed problems with dentures (5) Dementia: Code(s): F03.90 - Unspecified dementia, unspecified severity, without behavioral disturbance, psychotic disturbance, mood disturbance, and anxiety Status: Acute Assessment and Plan: * Continue memantine and quetiapine. (6) Heart murmur: Code(s): R01.1 - Cardiac murmur, unspecified Status: Acute Assessment and Plan: * Aortic valve is moderately stenosed * Echo showed EF of 77% with grade 2 diastolic dysfunction Plan Miralax and suppository ordered, looks to be either constipation or gas build up causing nausea Subjective Date/time seen: 04/07/22 0845 Interval history: 04/07/22 08 patient was sleeping however was complaining of nausea. Patient's daughter was present stated that the patient did have a good breakfast. She denies any chest pain, shortness a breath. She does seem a little lethargic today. Urine culture did grow E coli. Will continue wait for sensitivities at this time. 04/06/22 1030 Patient was resting in bed comfortably. Daughter was present. Patient is still complaining of nausea. It was also noted that patient has not been eating much however her dentures are very loose in her mouth. She denies any chest pain, shortness a breath, vomiting, diarrhea, weakness or fatigue. She does state that she could be constipated. Daughter did state that she does but MiraLax on her milk in the morning to help her have bowel movements. She was probably around A&O x1. 04/05/22? 14:45 This is a pleasant 82-year-old female with history of Parkinson's disease, dementia, hypertension, anxiety, depression who presented to the emergency department from home for evaluation of dizziness and nausea. Given her dementia and increasing confusion from current illness, she is not the greatest historian and tends to revert back to her [place] Tagalog though she can speak Romansh. Her daughter Leigh helps provide history with the patient's permission. Daughter remarks that she is not always able to express her symptoms at baseline either. Yesterday the patient complained of diz
--- NOTE | 2022-04-07 08:45 | PM.IMPN ---
Progress Note: A&P Assessment and Plan (1) Urinary tract infection: Code(s): N39.0 - Urinary tract infection, site not specified Status: Acute Assessment and Plan: presented with complaints of confusion UA did appear infectious Change ceftriaxone to augmentin urine culture grew E.coli adjust therapy to sensitivities (2) Dizziness: Code(s): R42 - Dizziness and giddiness Status: Acute Assessment and Plan: head CT shows old CVAs fall precautions orthostatics appear to be positive for hypotension continue trend blood pressure carotid Dopplers <50% bilaterally (3) Hypertension: Code(s): I10 - Essential (primary) hypertension Status: Acute Assessment and Plan: blood pressures have been noted to be elevated, this morning 110/68 continue to trend hydralazine p.r.n. with parameters probably high due to disorientation (4) Parkinsons disease: Code(s): G20 - Parkinson's disease Status: Acute Assessment and Plan: Continue carbidopa-levodopa. Initiate fall precautions. Bedside swallow just showed problems with dentures (5) Dementia: Code(s): F03.90 - Unspecified dementia, unspecified severity, without behavioral disturbance, psychotic disturbance, mood disturbance, and anxiety Status: Acute Assessment and Plan: Continue memantine and quetiapine. (6) Heart murmur: Code(s): R01.1 - Cardiac murmur, unspecified Status: Acute Assessment and Plan: Aortic valve is moderately stenosed Echo showed EF of 77% with grade 2 diastolic dysfunction Plan Miralax and suppository ordered, looks to be either constipation or gas build up causing nausea Subjective Date/time seen: 04/07/22 0845 Interval history: 04/07/22 08 patient was sleeping however was complaining of nausea. Patient's daughter was present stated that the patient did have a good breakfast. She denies any chest pain, shortness a breath. She does seem a little lethargic today. Urine culture did grow E coli. Will continue wait for sensitivities at this time. 04/06/22 1030 Patient was resting in bed comfortably. Daughter was present. Patient is still complaining of nausea. It was also noted that patient has not been eating much however her dentures are very loose in her mouth. She denies any chest pain, shortness a breath, vomiting, diarrhea, weakness or fatigue. She does state that she could be constipated. Daughter did state that she does but MiraLax on her milk in the morning to help her have bowel movements. She was probably around A&O x1. 04/05/22? 14:45 This is a pleasant 82-year-old female with history of Parkinson's disease, dementia, hypertension, anxiety, depression who presented to the emergency department from home for evaluation of dizziness and nausea. Given her dementia and increasing confusion from current illness, she is not the greatest historian and tends to revert back to her [place] Tagalog though she can speak Tongan. Her daughter Leigh helps provide history with the patient's permission. Daughter remarks that she is not always able to express her symptoms at baseline either. Yesterday the patient complained of dizziness, nausea, and loose stools and seemed to feel better after drinking 7 up. This morning she was once again complaining of nausea and daughter thought she looked sick and pale and she brought her in for evaluation. She was afebrile on arrival with stable vital signs. Urine was positive for nitrates, leukocyte esterase, bacteria, and white blood cells. She is being admitted in this setting for IV antibiotics. With further questioning the patient does endorse having dysuria for a couple of days. She is feeling better at this time.? She denies fever, chills, sweats, and diarrhea. Sh
[2022-04-07] MEDS: MEMANTINE 10 MG TABLET PO (08:55)
[2022-04-07] MEDS: LETROZOLE (*CHEMO) 2.5 MG TABLET PO (08:55)
[2022-04-07] MEDS: QUEtiapine FUMARATE 100 MG TABLET PO (08:55)
[2022-04-07] MEDS: polyethylene glycoL 3350 17 GM POWD.PACK PO (08:55)
[2022-04-07] MEDS: CARBIDOPA/LEVODOPA 25/100 MG CR TABLET 2 TABLET PO (08:55)
[2022-04-07] MEDS: METOCLOPRAMIDE HCL INJ 10 MG/2 ML VIAL IV PUSH (12:27)
[2022-04-08 05:40] VITALS: BP 112/69; PULSE 78; RESP 16; TEMP 36.6; O2SAT 95
[2022-04-08 07:06] LABS: Basophils Absolute Auto 0.1 K/mm3 (0.0-0.1); Basophils Percent Auto 0.8 % (0.2-1.2); Eosinophils Absolute Auto 0.2 K/mm3 (0-0.3); Eosinophils Percent Auto 3.2 % (0-4.4); Hematocrit 41.2 % (37.0-47.0); Immature Granulocyte Absolute 0.02 K/mm3 (0.00-0.031); Immature Granulocyte Percent A 0.3 % (0-0.5); Lymphocytes Absolute Auto 2.62 K/mm3 (0.9-3.2); Lymphocytes Percent Auto 36.4 % (18.3-44.2); Mean Corpuscular HGB Conc 31.6 g/dl (32-36); Mean Corpuscular Hemoglobin 28.8 pg (26-34); Mean Corpuscular Volume 91.4 fl (80-100); Mean Platelet Volume 9.7 fl (7.4-10.4); Monocytes Absolute Auto 0.6 K/mm3 (0.1-0.6); Monocytes Percent Auto 8.1 % (2.6-8.5); Neutrophils Absolute Auto 3.7 K/mm3 (1.3-6.7); Neutrophils Percent Auto 51.2 % (45.5-73.1); Platelet Count Result 182 k/mm3 (150-375); Red Blood Count 4.51 M/mm3 (4.2-5.4); Red Cell Distribution Width 13.2 % (11.5-14.5); White Blood Count 7.2 K/mm3 (4.5-10.0)
[2022-04-08 07:19] LABS: Alanine Aminotransferase 14 U/L (6-35); Albumin Level 4.2 g/dL (3.5-5.1); Alkaline Phosphatase 67 U/L (38-126); Anion Gap 7 mmol/L (8-16); Aspartate Amino Transferase 31 U/L (14-36); Bilirubin,Total 0.5 mg/dL (0.2-1.3); Blood Urea Nitrogen 18 mg/dL (7-17); Calcium 8.9 mg/dL (8.4-10.2); Carbon Dioxide 28 mmol/L (22-30); Chloride 106 mmol/L (98-107); Estimated CRCL calculation 29 ml/min; Estimated Glomerular Filt Rate 60; Glucose 99 mg/dL (65-110); Magnesium 2.2 mg/dL (1.6-2.3); Potassium 3.7 mmol/L (3.4-5.0); Sodium 141 mmol/L (137-145)
[2022-04-08] MEDS: LETROZOLE (*CHEMO) 2.5 MG TABLET PO (08:32)
[2022-04-08] MEDS: AMOXICILLIN/CLAVULANATE K 875-125 MG TAB 1 TABLET PO (08:32)
[2022-04-08] MEDS: CARBIDOPA/LEVODOPA 25/100 MG CR TABLET 2 TABLET PO (08:32)
[2022-04-08] MEDS: QUEtiapine FUMARATE 100 MG TABLET PO (08:32)
[2022-04-08] MEDS: MEMANTINE 10 MG TABLET PO (08:32)
[2022-04-08] MEDS: polyethylene glycoL 3350 17 GM POWD.PACK PO (08:32)
--- NOTE | 2022-04-08 09:15 | PM.DS ---
DS: Admitting Diagnosis Discharge Date 04/08/22 0915 Admitting Diagnosis UTI DS: Discharge Diagnosis Discharge Diagnosis (1) Urinary tract infection: Code(s): N39.0 - Urinary tract infection, site not specified Status: Acute Assessment and Plan: presented with complaints of confusion UA did appear infectious Change ceftriaxone to augmentin urine culture grew E.coli adjust therapy to sensitivities (2) Dizziness: Code(s): R42 - Dizziness and giddiness Status: Acute Assessment and Plan: head CT shows old CVAs fall precautions orthostatics appear to be positive for hypotension continue trend blood pressure carotid Dopplers <50% bilaterally (3) Hypertension: Code(s): I10 - Essential (primary) hypertension Status: Acute Assessment and Plan: blood pressures have been noted to be elevated, this morning 110/68 continue to trend hydralazine p.r.n. with parameters probably high due to disorientation (4) Parkinsons disease: Code(s): G20 - Parkinson's disease Status: Acute Assessment and Plan: Continue carbidopa-levodopa. Initiate fall precautions. Bedside swallow just showed problems with dentures (5) Dementia: Code(s): F03.90 - Unspecified dementia, unspecified severity, without behavioral disturbance, psychotic disturbance, mood disturbance, and anxiety Status: Acute Assessment and Plan: Continue memantine and quetiapine. (6) Heart murmur: Code(s): R01.1 - Cardiac murmur, unspecified Status: Acute Assessment and Plan: Aortic valve is moderately stenosed Echo showed EF of 77% with grade 2 diastolic dysfunction Plan Miralax and suppository ordered, looks to be either constipation or gas build up causing nausea DS: Summary Hospital Course Hospital Course: Patient is an 82-year-old female with past medical history of Parkinson's, dementia, hypertension, anxiety, depression who presented to the ED for dizziness and nausea. Patient also had a little bit of an increased confusion however resolved quickly. Daughter was present and gave most of history upon arrival patient was noted to have some leukocytosis and her UA did appear to be infectious. Patient noted to have a UTI for urine culture. Patient was started on ceftriaxone however has been changed to p.o. Augmentin has been tolerating well. Patient was also experiencing a lot of nausea and vomiting. patient was given Zofran in a suppository as they KUB did appear to have a little bit of constipation. Patient also been complaining of dizziness head CT was performed and showed old CVAs nothing new. Carotid Doppler also showed less than 50% stenosis bilaterally. Patient also had Ortho static blood pressures performed which did not show any hypotension. Blood pressures have been very elevated upon arrival however have leveled off and is currently 112/69. Labs and vital signs are stable at this time patient is stable for discharge. Patient did work with PT and OT and appears to be at her baseline with activity. Daughter was in the room and did agree as well. Patient will have home health for PT and OT needs. Patient is being discharged home and is stable for discharge at this time. daughter was present the room and all questions were answered plan of care was updated. Status at Discharge Functional status at discharge: uses cane/walker Overall status at discharge: patient is progressing back to baseline Time Spent with Patient Time attestation: Total time spent providing and/or coordinating discharge services: 38 minutes Time spent: Greater than 30 minutes Specific discharge activities: Diagnostic testing, chart review, developing a treatment plan, education, care coordination documentation, physical exam, result rev
[2022-04-08] MEDS: SENNA/DOCUSATE SODIUM TABLET 1 TAB PO (10:02)
== END 2022-04-08 14:53 | disposition home health service (06) | DRG 690 ==
LOC: ANHED 12:39 → ANH3MEDSUR 17:05
PROVIDERS: Admitting Provider Internal Medicine; Emergency Provider Emergency Medicine; PCP Family Medicine; Visit Provider Nurse Practitioner
DX: N39.0 Urinary tract infection, site not specified (principal); B96.20 Unspecified Escherichia coli [E. coli] as the cause of diseases classified elsewhere; G20 Parkinson's disease; I10 Essential (primary) hypertension; F03.90 Unspecified dementia, unspecified severity, without behavioral disturbance, psychotic disturbance, mood disturbance, and anxiety; R01.1 Cardiac murmur, unspecified; K59.00 Constipation, unspecified; Z20.822 Contact with and (suspected) exposure to COVID-19; F41.9 Anxiety disorder, unspecified; F32.A Depression, unspecified; Z85.3 Personal history of malignant neoplasm of breast; Z86.73 Personal history of transient ischemic attack (TIA), and cerebral infarction without residual deficits
CPT/HCPCS: 36415; 70450; 74018; 80053; 81001; 83735; 85025; 87040; 87077; 87086; 87088; 87186; 87637; 92610; 93005; 93306; 93880; 96365; 96375; 97161; 97165; 99285; A9270; J0360; J0696; J2405; J2765

== ENCOUNTER 2022-07-10 20:14 | Inpatient (IN) | payer MEDICARE, SELFPAY ==
--- NOTE | ~2022-07-10 | CT_ITS ---
CT of the Abdomen and Pelvis: Indication: Cholecystitis Technique: 2.5 mm axial scans were obtained through the abdomen and pelvis following intravenous adm inistration of 100 cc of Omnipaque 350. Dose reduction technique was used on this scan by utilizing a utomated exposure control and iterative reconstruction technique. The dose-length product (DLP) was 2 13.51 mGy-cm. Findings: Scans through the lung bases are unremarkable. There is diffuse gallbladder wall thickening and mild pericholecystic fluid. Common bile duct is diff usely dilated to 12 mm in diameter. There is mild central intrahepatic biliary dilatation. No other h epatic parenchymal abnormality seen. The spleen, pancreas, adrenals and kidneys are within normal cortes its. There are atherosclerotic calcifications of the aorta. No lymphadenopathy. No bowel obstruction or bowel wall thickening. There is no evidence to suggest acute appendicitis. Images through the pelvis were performed. 4.7 cm densely calcified uterine fibroid is present. Urinar y bladder unremarkable. There is a somewhat U shaped cystic mass or collection below the pubic symphy sis with several internal calcifications present (axial image [id number]), suggestive of urethral divert iculum. This measures approximately 2.8 x 1.2 x 2.7 cm in size. Impression: Gallbladder wall thickening and/or pericholecystic fluid are consistent with acute cholecystitis. Cor relate clinically. Consider HIDA scan as indicated. Internal and external biliary dilatation, as detailed above. No definite obstructing mass identified. 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 Fibroid uterus, as above. Reviewed, dictated and finalized at [facility]. Impression: Gallbladder wall thickening and/or pericholecystic fluid are consistent with ac theodore cholecystitis. Correlate clinically. Consider HIDA scan as indicated. Internal and external biliary dilatation, as detailed above. No definite obstru cting mass identified. 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 Fibroid uterus, as above.
--- NOTE | ~2022-07-10 | NM_ITS ---
EXAMINATION: NM hepatobiliary w pharm DATE: 07/12/2022 17:00 INDICATION: Right upper quadrant abdominal pain and prior CT and ultrasound findings consistent with acute cholecystitis. COMPARISON: CT dated 07/11/2022 and ultrasound dated 07/12/2022 TECHNIQUE: 3.1 mCi Tc-99m mebrofenin (Choletec) was administered intravenously. Scintigraphic images of the abdomen were obtained for one hour. At the 1 hour time 0.2 mg morphine was administered by sl ow intravenous infusion, and imaging was continued for and additional 30 minutes. FINDINGS: There is normal clearance of radiotracer from the blood pool. There is homogeneous tracer uptake by t he liver. Activity progresses to the common bile duct by 25 minutes with activity seen in the duoden um by 15 minutes. No evident activity in the gallbladder either during the first hour of imaging or i n the 30 minutes following intravenous administration which would be consistent with acute cholecysti tis. IMPRESSION: 1. No evident activity in the gallbladder including 30 minutes post morphine administration which wo uld be consistent with acute cholecystitis. Reviewed, dictated and finalized at location [facility]. IMPRESSION: 1. No evident activity in the gallbladder including 30 minutes post morphine a dministration which would be consistent with acute cholecystitis.
--- NOTE | ~2022-07-10 | US_ITS ---
EXAMINATION: US abdomen limited DATE: 07/12/2022 14:42 INDICATION: RUQ pain TECHNIQUE: Multiple grayscale and Doppler ultrasound images of limited portions of the abdomen were o btained. COMPARISON: CT abdomen pelvis 07/11/2022. FINDINGS: Dilated pancreatic duct, otherwise the visualized portions of the pancreas are normal. The liver is normal with normal echogenicity and echotexture. No surface nodularity. Normal hepatopetal f low in the main portal vein. Echogenic foci within the gallbladder lumen. Gallbladder wall thickening . Pericholecystic fluid. The common bile duct measures 14 mm mm. Crockett's sign not evaluated due to a ltered mental status. IMPRESSION: Cholelithiasis, with gallbladder wall thickening and pericholecystic fluid as can be seen with acute cholecystitis. Intra and extrahepatic bile duct and pancreatic duct dilation, without identification of an obstructing bile duct stone or mass. Reviewed, dictated and finalized at location [facility]. IMPRESSION: Cholelithiasis, with gallbladder wall thickening and pericholecystic fluid as c an be seen with acute cholecystitis. Intra and extrahepatic bile duct and pancr eatic duct dilation, without identification of an obstructing bile duct stone o r mass.
[2022-07-10 20:15] VITALS: BP 112/69; PULSE 79; RESP 20; TEMP 36.4; O2SAT 97
[2022-07-10 22:09] LABS: Basophils Absolute Auto 0.1 K/mm3 (0.0-0.1); Basophils Percent Auto 0.3 % (0.2-1.2); Eosinophils Percent Auto 0.1 % (0-4.4); Hematocrit 40.9 % (37.0-47.0); Hemoglobin 13.5 g/dL (12.0-15.0); Immature Granulocyte Absolute 0.09 K/mm3 (0.00-0.031); Immature Granulocyte Percent A 0.5 % (0-0.5); Lymphocytes Absolute Auto 1.55 K/mm3 (0.9-3.2); Lymphocytes Percent Auto 7.9 % (18.3-44.2); Mean Corpuscular Hemoglobin 28.5 pg (26-34); Mean Corpuscular Volume 86.5 fl (80-100); Mean Platelet Volume 9.9 fl (7.4-10.4); Monocytes Absolute Auto 1.4 K/mm3 (0.1-0.6); Monocytes Percent Auto 7.3 % (2.6-8.5); Neutrophils Absolute Auto 16.6 K/mm3 (1.3-6.7); Neutrophils Percent Auto 83.9 % (45.5-73.1); Platelet Count Result 163 k/mm3 (150-375); Red Blood Count 4.73 M/mm3 (4.2-5.4); Red Cell Distribution Width 13.2 % (11.5-14.5); White Blood Count 19.7 K/mm3 (4.5-10.0)
[2022-07-10 22:17] LABS: Alanine Aminotransferase 12 U/L (6-35); Albumin Level 4.6 g/dL (3.5-5.1); Alkaline Phosphatase 73 U/L (38-126); Anion Gap 5 mmol/L (8-16); Aspartate Amino Transferase 29 U/L (14-36); Bilirubin,Total 1.2 mg/dL (0.2-1.3); Blood Urea Nitrogen 14 mg/dL (7-17); Calcium 9.3 mg/dL (8.4-10.2); Carbon Dioxide 25 mmol/L (22-30); Chloride 106 mmol/L (98-107); Estimated Glomerular Filt Rate 60; Glucose 128 mg/dL (65-110); Lipase 97 U/L (23-300); Potassium 3.9 mmol/L (3.4-5.0); Sodium 136 mmol/L (137-145)
[2022-07-10 23:24] VITALS: BP 115/72; PULSE 72; RESP 18; O2SAT 97
[2022-07-11] VITALS (35 sets, daily range): BP systolic 128–175; BP diastolic 54–117; PULSE 62–102; RESP 15–28; TEMP 36.2–37.1; O2SAT 95–100; BMI 19.1
[2022-07-11 02:26] LABS: Appearance Urine Clear (Clear); Bacteria Urine None Seen /hpf; Bilirubin Urine Negative (Negative); Blood Urine 1+ (Negative); Color Urine Dark Yellow (Yellow); Glucose Urine UA Negative (Negative); Ketones Urine 1+ mg/dL (Negative); Leukocyte Esterase Ur Negative LEU/UL (Negative); Need Manual Microscopic Reviewed; Nitrate Urine Negative (Negative); Protein Urine 1+ mg/dL (Negative); Specific Grav Ur 1.022 (1.001-1.035); Squamous Epithelial Cell Urine Occasional /hpf (Few); WBC Urine 0-5 /hpf; pH Urine 5.5 (5.0-9.0)
[2022-07-11 02:29] LABS: Add Urine Microscopic? YES
--- NOTE | 2022-07-11 03:32 | ED.GENADULT ---
HPI - General Adult General Chief complaint: Abdominal Pain Stated complaint: Abdominal pain Time Seen by Provider: 07/11/22 00:38 History of Present Illness HPI narrative: this is an 82-year-old patient presenting to ED with a chief complaint of abdominal pain. Started yesterday and is located in the right upper quadrant. She is unable to characterize it, it is nonradiating, 5/10 intensity and constant. It is getting worse. She has never experienced pain like this before and there are no exacerbating alleviating factors. Patient denies fever chills chest pain difficulty breathing, nausea vomiting or diarrhea. She has not had her gallbladder removed. Related Data Home Medications Medication Instructions Recorded Confirmed letrozole 2.5 mg tablet 2.5 mg PO DAILY 01/18/20 04/05/22 memantine 10 mg tablet 10 mg PO DAILY 01/18/20 04/05/22 quetiapine 100 mg tablet (Seroquel) 100 mg PO DAILY 04/05/22 04/05/22 Allergies Allergy/AdvReac Type Severity Reaction Status Date / Time haloperidol Allergy Severe Difficulty Verified 07/10/22 20:14 Breathing PMFSH Past Medical History Medical History Anxiety and depression Breast cancer Cerebrovascular accident Dementia Hypertension Parkinsons disease Surgical History Surgical History History of lumpectomy Family History Family History Other Hypertension Social History Social History Social History: Surrogate medical decision maker: Leigh Maldonado, daughter. Code status: Full code. Smoking status: Never smoker Alcohol intake: never Substance use: never Substance use type: does not use Additional living arrangements comments: Originally from the [facility]. She has 4 children. Lives with daughter Leigh. 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 Spiritual care concerns: No Exam Narrative: APPEARANCE: No apparent distress. Head: atraumatic. EYES: EOMI, NOSE: Atraumatic NECK: Trachea midline RESPIRATORY: No increased rate of breathing CARDIOVASCULAR: RRR, ABDOMINAL: Tender to palpation in the right upper quadrant, positive Sonographic sign, no guarding or rebound in the rest the abdomen. Bowel sounds present. MUSCULOSKELETAl: No obvious deformities NEURO: Alert. Moving 4/4 extremities SKIN:: Warm, dry. Normal color PSYCHIATRIC: Normal affect point of care right upper quadrant ultrasound revealed a thickened gallbladder wall at 5 mm with pericholecystic fluid and gallstones in the gallbladder. Sonographic Crockett sign is positive. These findings are consistent with cholecystitis. Course Vital Signs Vital signs: Vital Signs Temperature 97.6 F 07/10/22 20:15 Pulse Rate 79 07/10/22 20:15 Respiratory Rate 20 07/10/22 20:15 Blood Pressure 112/69 07/10/22 20:15 Pulse Oximetry 97 07/10/22 20:15 Oxygen Delivery Room Air 07/10/22 20:15 Temperature 97.6 F 07/10/22 20:15 Pulse Rate 72 07/10/22 23:24 Respiratory Rate 18 07/10/22 23:24 Blood Pressure 115/72 07/10/22 23:24 Pulse Oximetry 97 07/10/22 23:24 Oxygen Delivery Room Air 07/10/22 20:15 Medical Decision Making MDM Narrative Medical decision making narrative: -Presentation: 82-year-old presenting with 1 day of right upper quadrant abdominal pain. Point of care ultrasound was concerning for cholecystitis. CT abdomen pelvis and preoperative lab work has been ordered. -DDX includes but is not limited to: Gallbladder disease, gastritis, pancreatitis -Co-morbidities complicating care: advanced age, Macedonian is a 2nd language -Social determinants of health: patient lives with her daughter Leigh, retired. -External Chart Review: none -Hx from ind
[2022-07-11] MEDS: SODIUM CHLORIDE 0.9% IV 2,000 ML 999 ML IV CONT (03:52)
[2022-07-11] MEDS: PIPERACILLN/TAZ 3.375GM/NS50ML 3.375 GM/50 ML BAG IVPB (03:58)
--- NOTE | 2022-07-11 05:29 | PC.NURSE ---
Patient care report called to MALIKA Cunningham. All questions answered at this time.
--- NOTE | 2022-07-11 06:01 | ADMGEN ---
This patient, Debbie Trejo, was admitted to [facility] Surg Room 331-02. Patient/family oriented to hospital policies and general routines including ID bracelet, bed and alarms, visiting hours, pain management, procedures, bathroom and other care routines, personal items, smoking policy, room service/diet, and visiting hours. Information on how to activate the Rapid Response Team has been discussed. Patient/Family are encouraged to report perceived risks to care and to ask questions if they do not understand what they are told or what they should do.
[2022-07-11] MEDS: LACTATED RINGERS 1,000 ML 75 ML IV CONT ×2 (06:12→20:41)
[2022-07-11 11:28] LABS: Hematocrit 40.2 % (37.0-47.0); Hemoglobin 12.8 g/dL (12.0-15.0); Mean Corpuscular HGB Conc 31.8 g/dl (32-36); Mean Corpuscular Hemoglobin 28.4 pg (26-34); Mean Corpuscular Volume 89.3 fl (80-100); Platelet Count Result 150 k/mm3 (150-375); Red Cell Distribution Width 13.5 % (11.5-14.5); White Blood Count 17.9 K/mm3 (4.5-10.0)
--- NOTE | 2022-07-11 13:07 | PM.CNGS ---
Assessment and Plan Assessment and plan (1) Acute cholecystitis: Code(s): K81.0 - Acute cholecystitis Status: Acute Assessment and Plan: Patient presents with CT evidence of acute cholecystitis and leukocytosis. LFTs normal. Somewhat difficult to evaluate with her dementia and limited history. She is still very tender in the RUQ. WBC down slightly to 17,000 today. She is hemodynamically stable. I have discussed the patient's case and plan with Dr. Concepcion. Given her advanced age, Parkinson's disease, and other co-morbidities, the patient is a higher risk surgical candidate when considering a cholecystectomy. We would recommend to continue with broad-spectrum IV antibiotics, agree with IV Zosyn. Will keep her NPO with IV fluids for now. Dr. Concepcion will evaluate the patient separately to decide on any further plans for surgical intervention. Repeat labs tomorrow. (2) Parkinsons disease: Code(s): G20 - Parkinson's disease Status: Acute Assessment and Plan: Increases surgical risks (3) Dementia: Code(s): F03.90 - Unspecified dementia, unspecified severity, without behavioral disturbance, psychotic disturbance, mood disturbance, and anxiety Status: Acute Assessment and Plan: Increases surgical risks (4) Moderate aortic valve stenosis: Code(s): I35.0 - Nonrheumatic aortic (valve) stenosis Status: Acute Assessment and Plan: Increases surgical risks (5) Hypertension: Code(s): I10 - Essential (primary) hypertension Status: Acute Plan I have discussed the patient's case and plan of care with Dr. Concepcion. Thank you for allowing us to see the patient in consultation and we will continue to follow along with you. History of Present Illness Consult details Consult date: 07/11/22 Reason for consult: other (Acute cholecystitis) Requesting physician: Aristeo Guillory MD Narrative: This is an 82-year-old with significant past medical history of Parkinson's, dementia, hypertension, who presented to the emergency department from home for evaluation of abdominal pain. The patient is a poor historian and no family is at the bedside. Therefore, her history is obtained from review of the electronic medical record and by question she can answer. Her abdominal pain started yesterday and progressively worsened. No exacerbating or alleviating factors. Has never had this abdominal pain in the past. Workup in the ED showed white blood cell count [id number], but otherwise unremarkable labs. LFTs and lipase were normal. CT scan of the abdomen and pelvis showed gallbladder wall thickening and/or pericholecystic fluid consistent with acute cholecystitis. No evident gallstones on CT. Also noted was internal and external biliary dilation with the common bile duct of 12 mm in diameter but no definite obstructing mass identified. 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 She was admitted to the hospitalist service and our service was consulted for acute cholecystitis. She is now seen on the medical floor. She is able to answer some simple yes or no questions. She will not answer any orientation questions for me. She denies abdominal pain at the time of my exam. No specific complaints. She does not believe she has had prior abdominal surgeries and no obvious large scars are noted on her abdomen. To note, she was recently hospitalized in March of 2022 for treatment of UTI and workup for dizziness. She had carotid Dopplers that showed less than 50% stenosis bilaterally and CT of the brain that showed old CVA but negative for anything acute. She was also noted to have a heart murmur and subsequently had an echocardiogram that showed moderate aortic valve stenosis, pulmonary HTN, and grade 2 diastolic dysfunction. Review of Systems Review of Systems: ROS unobtainable: Yes unobtainable due to medical con
--- NOTE | 2022-07-11 14:26 | PM.IMHP ---
H&P: HPI History of Present Illness Date/Time: 07/11/22 14:26 Chief Complaint: R UQ abdominal pains Narrative: 82-year-old with significant past medical history of Parkinson's, dementia, hypertension, who presented to the emergency department from home for evaluation of abdominal pain.? The patient is a poor historian and no family is at the bedside.? Tried calling daughter and son no answer. Pt describes right sided abdominal pain. ongoing for 2 weeks time. NO fever or rigors. No vomiting or diarrhea. CT shows - Gallbladder wall thickening and/or pericholecystic fluid are consistent with acute cholecystitis. Correlate clinically. Consider HIDA scan as indicated. Internal and external biliary dilatation, as detailed above. No definite obstructing mass identified. Surgery consulted plan to continue iv abx for Acute cholecystitis for now. Pt had a recent admission with UTI and dizziness in mar 2022. UA this time does not show urinary tract infection. Review of Systems Review of Systems: All 14 systems reviewed and negative apart from RUQ pain PMFSH Past Medical History Medical History Anxiety and depression Breast cancer Cerebrovascular accident Dementia Hypertension Parkinsons disease Surgical History Surgical History History of lumpectomy Family History Family History Other Hypertension Social History Social History Social History: Surrogate medical decision maker: Leigh Maldonado, daughter. Code status: Full code. Smoking status: Never smoker Alcohol intake: never Substance use: never Substance use type: does not use Additional living arrangements comments: Originally from the [facility]. She has 4 children. Lives with daughter Leigh. 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 Spiritual care concerns: No Meds Home Medications and Allergies Home Medications Medication Instructions Recorded Confirmed Type letrozole 2.5 mg tablet 2.5 mg PO DAILY 01/18/20 07/11/22 History memantine 10 mg tablet 10 mg PO DAILY 01/18/20 07/11/22 History quetiapine 100 mg tablet (Seroquel) 100 mg PO QHS 04/05/22 07/11/22 History amoxicillin 875 mg-potassium 1 tablet PO Q12H #14 tabs 04/08/22 07/11/22 Rx clavulanate 125 mg tablet polyethylene glycol 3350 17 gram 17 g PO QAM #30 ea 04/08/22 07/11/22 Rx oral powder packet (Miralax) sennosides 8.6 mg-docusate sodium 1 tab-cap PO DAILY PRN 04/08/22 07/11/22 Rx 50 mg tablet (Senokot-S) Constipation #30 tabs carbidopa ER 50 mg-levodopa 200 mg 50 - 200 tablet PO DAILY #90 tabs 06/10/22 07/11/22 Rx tablet,extended release Seroquel 25 mg PO QAM 07/11/22 07/11/22 History Allergies Allergy/AdvReac Type Severity Reaction Status Date / Time haloperidol Allergy Severe Difficulty Verified 07/10/22 20:14 Breathing Vital Signs Vital Signs - 24 hr 07/10/22 20:15 07/10/22 23:24 07/11/22 00:42 Temperature 36.4 C Pulse Rate 79 72 Respiratory Rate 20 18 Blood Pressure 112/69 115/72 Pulse Oximetry 97 97 97 Oxygen Delivery Room Air 07/11/22 00:44 07/11/22 00:45 07/11/22 01:00 Temperature Pulse Rate 70 68 64 Respiratory Rate 15 15 25 H Blood Pressure 128/63 Pulse Oximetry 100 100 100 Oxygen Delivery 07/11/22 01:01 07/11/22 01:15 07/11/22 01:31 Temperature Pulse Rate 62 66 66 Respiratory Rate 21 H 18 Blood Pressure 142/67 H 133/117 H Pulse Oximetry 100 Oxygen Delivery 07/11/22 01:47 07/11/22 02:00 07/11/22 02:01 Temperature Pulse Rate 85 86 Respiratory Rate 28 H 23 H 22 H Blood Pressure 132/87 Pulse Oximetry Oxygen Delivery 07/11/22 02:15 07/11/22 02:30 07/11/22 02:31 Temperature
--- NOTE | 2022-07-11 16:55 | PC.NURSE ---
Pt is A&O 0-1 female. Pt was able to tell me her name, but nothing else. Pt had daughter at bedside. Pt daughter reviewed home medications and participated and contributed to mothers plan of care. Pt reports no pain and expresses no needs. Pt sleeping for most of day. Daughter states pt typically sits in chair and watches tv at home. Will continue to monitor pt.
[2022-07-11] MEDS: QUEtiapine FUMARATE 100 MG TABLET PO (20:41)
[2022-07-12 06:00] VITALS: BP 150/91; PULSE 68; RESP 20; TEMP 36.1; O2SAT 100
[2022-07-12 06:11] LABS: Hematocrit 37.5 % (37.0-47.0); Hemoglobin 11.9 g/dL (12.0-15.0); Immature Platelet Fraction Pct 4.9 % (0.9-11.2); Mean Corpuscular HGB Conc 31.7 g/dl (32-36); Mean Corpuscular Hemoglobin 28.6 pg (26-34); Mean Corpuscular Volume 90.1 fl (80-100); Mean Platelet Volume 10.4 fl (7.4-10.4); Platelet Count Result 136 k/mm3 (150-375); Red Blood Count 4.16 M/mm3 (4.2-5.4); Red Cell Distribution Width 13.5 % (11.5-14.5); White Blood Count 12.1 K/mm3 (4.5-10.0)
[2022-07-12 06:24] LABS: Anion Gap 4 mmol/L (8-16); Blood Urea Nitrogen 14 mg/dL (7-17); Calcium 8.7 mg/dL (8.4-10.2); Carbon Dioxide 26 mmol/L (22-30); Chloride 108 mmol/L (98-107); Estimated CRCL calculation 32 ml/min; Estimated Glomerular Filt Rate 60; Glucose 106 mg/dL (65-110); Potassium 3.3 mmol/L (3.4-5.0); Sodium 138 mmol/L (137-145)
[2022-07-12] MEDS: MEMANTINE 10 MG TABLET PO (08:48)
[2022-07-12] MEDS: CARBIDOPA/LEVODOPA 25/100 MG CR TABLET 2 TABLET PO (08:48)
[2022-07-12] MEDS: LETROZOLE (*CHEMO) 2.5 MG TABLET PO (08:48)
[2022-07-12 09:07] VITALS: BP 121/54; PULSE 75; RESP 16; O2SAT 97
--- NOTE | 2022-07-12 09:17 | ECG_ITS ---
Measurements Intervals [place] Rate: 64 P: 54 [place]: 161 QRS: -22 QRSD: 92 T: 0 QT: 331 QTc: 342 Interpretive Statements SINUS RHYTHM DELAYED PRECORDIAL R/S TRANSITION INFERIOR INFARCT, AGE INDETERMINATE ST-T WAVE ABNORMALITY IN LAT/HIGH LAT LEADS- CONSIDER ISCHEMIA BASELINE ARTIFACT- I, II, AVL, V3-V6 ABNORMAL ECG COMPARED TO ECG 04/05/2022 09:47:10 ST-T WAVE ABNORMALITY NOW PRESENT Electronically Signed On 07-12-2022 10:40:08 CDT by Efrem Kolb D.O.
[2022-07-12 10:13] LABS: Troponin I 0.083 ng/mL (0.000-0.034)
--- NOTE | 2022-07-12 11:01 | PM.PNGS ---
Progress Note: A&P Assessment and Plan (1) Substernal chest pain: Code(s): R07.2 - Precordial pain Status: Acute Assessment and Plan: Hospitalist has been alerted. EKG and cardiac enzymes have been ordered. May be cardiac in origin or could be related to gallbladder. Being investigated. (2) Acute cholecystitis: Code(s): K81.0 - Acute cholecystitis Status: Acute Assessment and Plan: CT scan suggested cholecystitis but no stones were noted. Patient scheduled to have ultrasound and HIDA scan today. I discussed with the patient's daughter at length the concerns regarding cholecystitis. Assuming she is not having an acute coronary syndrome, we will obtain the testing today and probably proceed with laparoscopic cholecystectomy tomorrow. I described this procedure to the patient's daughter who is her guardian and power of final inspector. I explained that this may need to be converted to open surgery. I explained that she is at increased risk with the surgery primarily due to her dementia and Parkinson's disease. Patient does live with her daughter who is retired and mostly cares for her mother. I explained that her mental status may be impaired and that with Parkinson's disease, postoperative pneumonia is a significant risk. We also discussed the possibility of cholecystostomy tube which is somewhat of a temporizing measure and often leads to having problems down the road. Her daughter is in favor of the surgery. We will tentatively plan for laparoscopic cholecystectomy possible open cholecystectomy tomorrow. (3) Dementia: Code(s): F03.90 - Unspecified dementia, unspecified severity, without behavioral disturbance, psychotic disturbance, mood disturbance, and anxiety Status: Chronic Assessment and Plan: Increases surgical risk (4) Parkinsons disease: Code(s): G20 - Parkinson's disease Status: Chronic Assessment and Plan: Increases surgical risk. Subjective Subjective Date/Time Seen: 07/12/22 11:01 Patient reports: no bowel movement, afebrile and other (Complaining of chest pain, shortness of breath this morning) Review of Systems Review of Systems: All systems reviewed & are unremarkable except as noted in HPI and below (HPI and those items noted below) Constitutional: Constitutional: Reports as per HPI, Denies chills and Denies fever(s) Cardiovascular: Cardiovascular: Reports chest pain at rest and Reports dyspnea Respiratory: Respiratory: Denies chest congestion, Denies cough, Reports dyspnea, Denies stridor and Denies wheezing Gastrointestinal: Gastrointestinal: Reports as per HPI Integumentary/Breasts: Skin/Breast: Denies lesions and Denies rash Exam Const: General: no acute distress and uncomfortable Nutritional Appearance: thin GI: Inspection: normal to inspection and non-distended GI Palp: Yes Soft to palpation, No Tenderness to palpation present (GI), No Guarding due to palpation present (GI) and No Palpable mass present Auscultation: normal bowel sounds Objective Data Vital Signs Vital Signs: Vital Signs - 24 hr 07/11/22 14:00 07/11/22 22:00 07/11/22 20:00 Temperature 37.1 C 36.3 C L Pulse Rate 88 82 82 Respiratory Rate 22 H 18 18 Blood Pressure 141/65 H 133/54 L Pulse Oximetry 95 96 96 Oxygen Delivery Room Air 07/12/22 06:00 07/12/22 09:07 Temperature 36.1 C L Pulse Rate 68 75 Respiratory Rate 20 16 Blood Pressure 150/91 H 121/54 L Pulse Oximetry 100 97 Oxygen Delivery Intake/Output Intake/Output: Intake & Output 07/09/22 07/10/22 07/11/22 07/12/22 23:59 23:59 23:59 23:59 Intake Total 3200 200 Output Total 50 Balance 3200 150 Meds/Results Medications: Active Medications Generic Name Dose Route Start Last Admin Trade Name Freq PRN Reason Stop Dose Admin Carbidopa/Levodopa 2 tablet 07/12/22 09:00 07/12/22 08:48 Carbidopa/Levodopa 25/100 Mg Cr Tablet PO 2 tablet DAILY [facility]
--- NOTE | 2022-07-12 13:02 | PM.IMPN ---
Progress Note: A&P Assessment and Plan (1) Moderate aortic valve stenosis: Code(s): I35.0 - Nonrheumatic aortic (valve) stenosis Status: Acute Assessment and Plan: Know history of heart murmur (2) Acute cholecystitis: Code(s): K81.0 - Acute cholecystitis Status: Acute Assessment and Plan: Currently being treated with iv fluids, iv zosyn Pt seen by surgery team surgery planned for tomorrow (3) Anxiety and depression: Code(s): F41.9 - Anxiety disorder, unspecified; F32.A - Depression, unspecified Status: Acute Assessment and Plan: Pt takes seroquel, home medications (4) Dementia: Code(s): F03.90 - Unspecified dementia, unspecified severity, without behavioral disturbance, psychotic disturbance, mood disturbance, and anxiety Status: Chronic Assessment and Plan: Pt takes seroquel, mood is stable today (5) Parkinsons disease: Code(s): G20 - Parkinson's disease Status: Chronic Assessment and Plan: Pt takes carbidopa and levodopa, Parkinsons is well controlled (6) Substernal chest pain: Code(s): R07.2 - Precordial pain Status: Acute Assessment and Plan: Ekg ordered stat shows some changes in inferior leads and low voltage Troponin ordered stat resulted second troponin ordered Cardiology consult ordered for clearance pt due for surgery tomorrow Subjective Date/time seen: 07/12/22 13:02 Surgery consulted for?Acute cholecystitis. Unfortunately pt complains of chest pain this am Ekg and troponin ordered cardioloy consult ordered Pt has a past medical history of Parkinson's, dementia, hypertension, who presented to the emergency department from home for evaluation of abdominal pain. Speaks some bahamian not much Review of Systems Review of Systems: chest pain Objective Data Vital Signs Vital Signs: Vital Signs - 24 hr 07/11/22 14:00 07/11/22 22:00 07/11/22 20:00 Temperature 37.1 C 36.3 C L Pulse Rate 88 82 82 Respiratory Rate 22 H 18 18 Blood Pressure 141/65 H 133/54 L Pulse Oximetry 95 96 96 Oxygen Delivery Room Air 07/12/22 06:00 07/12/22 09:07 07/12/22 08:00 Temperature 36.1 C L Pulse Rate 68 75 Respiratory Rate 20 16 Blood Pressure 150/91 H 121/54 L Pulse Oximetry 100 97 Oxygen Delivery Room Air Intake/Output Intake/Output: Intake & Output 07/09/22 07/10/22 07/11/22 07/12/22 23:59 23:59 23:59 23:59 Intake Total 3200 200 Output Total 50 Balance 3200 150 Meds/Results Medications: Active Medications Generic Name Dose Route Start Last Admin Trade Name Freq PRN Reason Stop Dose Admin Carbidopa/Levodopa 2 tablet 07/12/22 09:00 07/12/22 08:48 Carbidopa/Levodopa 25/100 Mg Cr Tablet PO 2 tablet DAILY CECI Administration Piperacillin Sod/Tazobactam Sod 2.25 gm in 50 mls @ 100 mls/hr 07/11/22 09:00 07/12/22 08:49 Zosyn 2.25 Gm/D5w 50 Ml IVPB 100 mls/hr Q6H CECI Administration Lactated Ringer's 1,000 mls @ 75 mls/hr 07/11/22 04:55 07/12/22 08:50 Lr - Lactated Ringers Iv IV CONT Not Given .[id number] CECI Letrozole 2.5 mg 07/12/22 09:00 07/12/22 08:48 Letrozole (*Chemo) 2.5 Mg Tablet PO 2.5 mg DAILY CECI Administration Memantine 10 mg 07/12/22 09:00 07/12/22 08:48 Memantine 10 Mg Tablet PO 10 mg DAILY CECI Administration Quetiapine Fumarate 25 mg 07/12/22 09:00 07/12/22 08:50 Quetiapine Fumarate 25 Mg Tablet PO 08/11/22 08:59 Not Given QAM CECI Quetiapine Fumarate 100 mg 07/11/22 21:00 07/11/22 20:41 Quetiapine Fumarate 100 Mg Tablet PO 100 mg QHS CECI Administration Radiology Results: ITS Impressions Abdomen/Pelvis CT 07/11/22 05:49 Impression: Gallbladder wall thickening and/or pericholecystic fluid are consistent with acute cholecystitis. Correlate clinically. Consider HIDA scan as indicated. Internal and external biliary dilatation, as detailed above. No defin
[2022-07-12 13:27] LABS: Troponin I 0.073 ng/mL (0.000-0.034)
[2022-07-12 14:00] VITALS: BP 128/49; PULSE 61; RESP 14; TEMP 35.9; O2SAT 94
[2022-07-12] MEDS: MORPHINE SULFATE (*CRX) 2 MG/ML INJ IV PUSH (16:13)
[2022-07-12 21:06] VITALS: BP 163/58; PULSE 75; RESP 18; TEMP 36.5; O2SAT 97
[2022-07-12] MEDS: LACTATED RINGERS 1,000 ML 75 ML IV CONT (22:14)
[2022-07-13] VITALS (17 sets, daily range): BP systolic 122–177; BP diastolic 52–86; PULSE 58–91; RESP 14–20; TEMP 35.6–36.8; O2SAT 95–100
--- NOTE | 2022-07-13 | ECHO_ITS ---
Patient Info Name: Debbie Trejo Age: 82 years : 1940 Gender: Female Ht: 63 in Wt: 108 lbs BSA: 1.47 m2 HR: 91 bpm BP: 144 / 62 mmHg Heart Rhythm: Sinus Rhythm Technical Quality: Fair Exam Date: 07/13/2022 9:07 AM Exam Location: [facility] Patient Status: Inpatient Admit Date: 07/11/2022 Staff Ordering Physician: Liyah Hodge MD (vinh/shiraz) Biostatistics Professor: Audrey Vale RDCS Attending Provider: Beverly Pickering DO Referring Physician: Naveen SAGASTUME; Exam Type: CA echo doppler color flow Study Info Indications R07.9 - Chest pain, unspecified Complete two-dimensional, color flow and Doppler transthoracic echocardiogram is performed. Summary 1. Complete two-dimensional, color flow and Doppler transthoracic echocardiogram is performed. 2. Left ventricular chamber dimension is normal. 3. Left ventricular systolic function is normal, estimated at >70%. 4. There is mildly increased left ventricular wall thickness. 5. The left ventricular diastolic function is grade I diastolic dysfunction. 6. Right ventricular systolic function is normal. 7. Left atrial chamber dimension is mildly enlarged. 8. There is moderate aortic valve calcification. 9. There is moderate aortic valve stenosis with a peak velocity of 313 cm/s, mean gradient of 19 mmHg, and aortic valve area of 1.3 cm2. 10. There is mild aortic valve regurgitation. 11. The mitral valve annulus is severely calcified. 12. The mitral valve has thickened leaflets. 13. There is mild mitral valve regurgitation. 14. There is mild pulmonic regurgitation. 15. There is mild aortic atherosclerosis. Left Ventricle Left ventricular chamber dimension is normal. Left ventricular systolic function is normal, estimated at >70%. There is mildly increased left ventricular wall thickness. The left ventricular diastolic function is grade I diastolic dysfunction. Right Ventricle Right ventricular chamber dimension is normal. Right ventricular systolic function is normal. Left Atria Left atrial chamber dimension is mildly enlarged. Right Atria Right atrial chamber dimension is normal. Atrial Septum Intact interatrial septum visualized by color flow imaging. Aortic Valve The aortic valve is trileaflet. There is moderate aortic valve stenosis with a peak velocity of 313 cm/s, mean gradient of 19 mmHg, and aortic valve area of 1.3 cm2. There is mild aortic valve regurgitation. There is moderate aortic valve calcification. Pulmonic Valve The pulmonic valve is not well visualized. There is mild pulmonic regurgitation. Mitral Valve The mitral valve has thickened leaflets. There is no mitral valve stenosis. There is mild mitral valve regurgitation. The mitral valve annulus is severely calcified. Tricuspid Valve There is trace tricuspid valve regurgitation. Pericardium/Pleural There is trivial pericardial effusion. Inferior Vena Cava Dilated inferior vena cava with <50% collapse upon inspiration consistent with elevated right atrial pressure, 15 mmHg. Aorta The aortic root size at the sinus of Valsalva is normal. There is mild aortic atherosclerosis. Left Ventricular Outflow Tract Name Value Normal LVOT 2D LVOT Diam
[2022-07-13 07:59] LABS: Hematocrit 37.1 % (37.0-47.0); Mean Corpuscular HGB Conc 32.3 g/dl (32-36); Mean Corpuscular Hemoglobin 28.5 pg (26-34); Mean Corpuscular Volume 88.1 fl (80-100); Mean Platelet Volume 10.4 fl (7.4-10.4); Platelet Count Result 144 k/mm3 (150-375); Red Blood Count 4.21 M/mm3 (4.2-5.4); Red Cell Distribution Width 13.4 % (11.5-14.5); White Blood Count 9.2 K/mm3 (4.5-10.0)
[2022-07-13 08:16] LABS: Anion Gap 6 mmol/L (8-16); Blood Urea Nitrogen 11 mg/dL (7-17); Calcium 8.5 mg/dL (8.4-10.2); Carbon Dioxide 27 mmol/L (22-30); Chloride 105 mmol/L (98-107); Estimated CRCL calculation 41 ml/min; Estimated Glomerular Filt Rate > 60; Glucose 108 mg/dL (65-110); Potassium 3.3 mmol/L (3.4-5.0); Sodium 138 mmol/L (137-145)
--- NOTE | 2022-07-13 09:02 | PM.IMPN ---
Progress Note: A&P Assessment and Plan (1) Moderate aortic valve stenosis: Code(s): I35.0 - Nonrheumatic aortic (valve) stenosis Status: Acute Assessment and Plan: Know history of heart murmur (2) Acute cholecystitis: Code(s): K81.0 - Acute cholecystitis Status: Acute Assessment and Plan: Presenting symptom. 19 K wBC count on admission with right upper quadrant abdominal pain. CT ultrasound and HIDA scan consistent with acute cholecystitis General surgery consulted Cardiology consulted for pre operative risk stratification given findings of elevated troponin EKG changes. Echo planned. Acceptable risk for the planned surgery per Cardiology Patient status post cholecystectomy 07/13/2022 (3) Anxiety and depression: Code(s): F41.9 - Anxiety disorder, unspecified; F32.A - Depression, unspecified Status: Acute Assessment and Plan: Pt takes seroquel, home medications (4) Dementia: Code(s): F03.90 - Unspecified dementia, unspecified severity, without behavioral disturbance, psychotic disturbance, mood disturbance, and anxiety Status: Chronic Assessment and Plan: Pt takes seroquel, mood is stable (5) Parkinsons disease: Code(s): G20 - Parkinson's disease Status: Chronic Assessment and Plan: Pt takes carbidopa and levodopa, Parkinsons is well controlled (6) Substernal chest pain: Code(s): R07.2 - Precordial pain Status: Acute Assessment and Plan: Ekg 07/12/[address]-T changes in inferior and lateral leads and low voltage Troponin ordered which was mildly elevated with flat trajectory. Echo ordered. Cardiology consulted. Discussed with them. Troponin likely noncardiac likely due to her underlying acute cholecystitis Echo/ normal left ventricular size and mild concentric hypertrophy ejection fraction 77% grade 2 diastolic dysfunction. Moderate aortic valve stenosis mild pulmonary hypertension. Subjective Date/time seen: 07/13/22 09:02 Interval history: Chart reviewed. Discussed with Cardiology. Presented with right upper quadrant abdominal pain. Point of care ultrasound revealed thickened gallbladder wall with pericholecystic fluid and gallstones in the gallbladder. Crockett sign positive consistent with acute cholecystitis. CT scan of the abdomen and pelvis showed inflammation of the gallbladder. WBC count 19 K on admission. General surgery was consulted. Mildly elevated troponin which remained flat. History of moderate aortic valve stenosis. Underlying dementia heart disease. Gallbladder ultrasound with cholelithiasis with gallbladder wall thickening and pericholecystic fluid has conversant with acute cholecystitis. Intra and extrahepatic bile duct and pancreatic duct dilatation without any occasion obstructive duct stone or mass. HIDA scan performed 07/12/2022 with no been activity in the gallbladder including 30 minutes post morphine administration which did consistent with acute cholecystitis. LFT on admission was normal. Troponin trend 0.083-0.07 3-0.060. Leukocytosis is resolved. Remains on IV Zosyn. 07/14/2022 seen after the surgery. Somnolent. Reports pain in the right upper quadrant. Drain in place. Review of Systems Review of Systems: All systems reviewed & are unremarkable except as noted in HPI and below Exam Narrative: ? APPEARANCE: No apparent distress. Head: atraumatic. Normocephalic EYES:? EOMI, NOSE: Atraumatic NECK: Trachea midline RESPIRATORY: No increased rate of breathing CARDIOVASCULAR: RRR, ABDOMINAL: Tender to palpation in the right upper quadrant, drain in place surgical incision noted on abdomen.? Bowel sounds present. MUSCULOSKELETAl: No obvious deformities NEURO: Alert. Moving 4/4 extremities SKIN:: Warm, dry. Normal color PSYCHIATRIC: Normal affect Objective Data Vital Signs Vital Signs: Vital Signs - 24 hr 07/12/22 09:07 07/12/22 14:00
[2022-07-13 09:24] LABS: Alanine Aminotransferase 15 U/L (6-35); Albumin Level 3.6 g/dL (3.5-5.1); Alkaline Phosphatase 90 U/L (38-126); Aspartate Amino Transferase 35 U/L (14-36); Bilirubin,Total 0.8 mg/dL (0.2-1.3)
[2022-07-13] MEDS: POTASSIUM CHLORIDE INJ 40 MEQ in SODIUM CHLORIDE 0.9% IV 500 ML 130 MEQ IVPB (10:12)
[2022-07-13] MEDS: CARBIDOPA/LEVODOPA 25/100 MG CR TABLET 2 TABLET PO (10:13)
--- NOTE | 2022-07-13 11:02 | PM.CNCAR ---
Assessment and Plan Assessment and plan (1) Acute cholecystitis: Code(s): K81.0 - Acute cholecystitis Status: Acute (2) Chest pain: Code(s): R07.9 - Chest pain, unspecified Status: Acute (3) Elevated troponin: Code(s): R77.8 - Other specified abnormalities of plasma proteins Status: Acute Plan Surgery team is planning for laparoscopic cholecystectomy. Patient reported chest pain yesterday and workup showed EKG with sinus rhythm with nonspecific STTW abnormality. Troponin trend: 0.083 --> 0.073 --> 0.060. It is very difficult to elicit a history/details from the patient, but she does point to her right lower anterior chest wall when asked about her chest pain. Grimaces her face in pain upon palpation of that region. Her troponin trend is flat, which is not typically seen in the setting of acute coronary syndrome where you have a rise and fall pattern. Echocardiogram done this morning shows LVEF >70 without appreciable regional wall motion abnormalities, moderate , mild AI, mild MR, mild CA. Overall no significant changes in her echocardiogram compared to last one from 03/2022. At this time, I do not believe patient is having an ACS episode. Can proceed with the planned surgery without additional cardiac workup/testing at this time. Patient is at moderate risk for major adverse cardiac events. History of Present Illness History of Present Illness Consult date/time: 07/13/22 11:02 Requesting physician: Temitope Pagan MD Consult reason: chest pain Reason For Visit: Cholecystitis Narrative: We are consulted for chest pain. This is an 82-year-old female with a history of Parkinson's dementia, hypertension who presented to [facility] for evaluation of abdominal pain. Found to have acute cholecystitis. Patient is a very poor historian and difficult to elicit details from. Daughter is at bedside during my evaluation. Surgery planning for possible laparoscopic cholecystectomy. Yesterday, patient complained of chest pain. EKG showed sinus rhythm with nonspecific STTW abnormality. Troponin trend: 0.083 --> 0.073 --> 0.060. Upon my evaluation this morning, when I initially ask the patient if she has been having chest pain, she answers no. When I ask her again, she then says yes. I ask her to point to where she is experiencing the pain, and she points to her right lower anterior chest. When I press down on the chest, she grimaces her face. When I ask patient if breathing causes the pain to worsen, she does not answer. Review of Systems Review of Systems: Limited review of systems due to underlying dementia. As noted in HPI. [facility] Past Medical History Medical History Anxiety and depression Breast cancer Cerebrovascular accident Dementia Hypertension Parkinsons disease Surgical History Surgical History History of lumpectomy Family History Family History Other Hypertension Social History Social History Social History: Surrogate medical decision maker: Leigh Maldonado, daughter. Code status: Full code. Smoking status: Never smoker Alcohol intake: never Substance use: never Substance use type: does not use Additional living arrangements comments: Originally from the [facility]. She has 4 children. Lives with daughter Leigh. 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 Spiritual care concerns: No Meds Home Medications and Allergies Home Medications Medication Instructions Recorded Confirmed Type letrozole 2.5 mg tablet 2.5 mg PO DAILY 01/18/20 07/11/22 History memantine 10 mg tablet 10 mg PO DAILY 01/18/20 07/11/22 History quetiapine 100 mg tablet (Seroquel) 100 mg PO QHS 04/05/22 07/11/22 History a
--- NOTE | 2022-07-13 11:10 | PC.NURSE ---
I spoke with Dr. Hodge at 1109 to obtain cardiac clearance. Dr. Hodge stated that, She is cleared from her standpoint for surgery . Clearance was reported to staff by charge nurse Sylvia.
--- NOTE | 2022-07-13 12:14 | PC.NURSE ---
Pt dentures removed from mouth and placed in denture cup with pt label placed on pt table. Pt rings removed from left first finger and left ring finger and placed in denture cup with pt label and placed on pt table.
[2022-07-13] MEDS: LACTATED RINGERS 1,000 ML 30 ML IV CONT ×2 (13:00→16:28)
--- NOTE | 2022-07-13 13:14 | WPDANESEPPF ---
Anes - Initial Pre Proc Eval Procedure: Operation Date: 07/13/22 15:00 Proposed Procedures p Laparoscopic Cholecystectomy, Possible Open - Haris Concepcion MD Date/Time: 07/13/22 13:14 Surgeon: Beverly Pickering DO Pre Op Diagnosis: Cholecystitis Patient Data Age: 82 Gender: F Height: 1.6 m Weight: 49.1 kg Last Vital Signs Temp 36.1 C L 07/13/22 07:03 Pulse 58 L 07/13/22 07:03 Resp 14 07/13/22 07:03 BP 136/52 L 07/13/22 07:03 Pulse Ox 96 07/13/22 09:56 O2 Del Method Room Air 07/13/22 09:56 Allergies Allergy/AdvReac Type Severity Reaction Status Date / Time haloperidol Allergy Severe Difficulty Verified 07/10/22 20:14 Breathing Home Medications Medication Instructions Recorded Confirmed Type letrozole 2.5 mg tablet 2.5 mg PO DAILY 01/18/20 07/11/22 History memantine 10 mg tablet 10 mg PO DAILY 01/18/20 07/11/22 History quetiapine 100 mg tablet (Seroquel) 100 mg PO QHS 04/05/22 07/11/22 History amoxicillin 875 mg-potassium 1 tablet PO Q12H #14 tabs 04/08/22 07/11/22 Rx clavulanate 125 mg tablet polyethylene glycol 3350 17 gram 17 g PO QAM #30 ea 04/08/22 07/11/22 Rx oral powder packet (Miralax) sennosides 8.6 mg-docusate sodium 1 tab-cap PO DAILY PRN 04/08/22 07/11/22 Rx 50 mg tablet (Senokot-S) Constipation #30 tabs carbidopa ER 50 mg-levodopa 200 mg 50 - 200 tablet PO DAILY #90 tabs 06/10/22 07/11/22 Rx tablet,extended release Seroquel 25 mg PO QAM 07/11/22 07/11/22 History Laboratory Tests 07/12/22 07/12/22 07/13/22 12:45 17:38 07:52 WBC 9.2 K/mm3 K/mm3 (4.5-10.0) RBC 4.21 M/mm3 M/mm3 (4.2-5.4) Hgb 12.0 g/dL g/dL (12.0-15.0) Hct 37.1 % % (37.0-47.0) MCV 88.1 fl fl (80-100) MCH 28.5 pg pg (26-34) MCHC 32.3 g/dl g/dl (32-36) RDW 13.4 % % (11.5-14.5) Plt Count 144 k/mm3 L k/mm3 (150-375) MPV 10.4 fl fl (7.4-10.4) Sodium Potassium Chloride Carbon Dioxide Anion Gap BUN Creatinine Estim Creat Clear Calc Estimated GFR Glucose Calcium Total Bilirubin Direct Bilirubin AST ALT Alkaline Phosphatase Troponin I 0.073 ng/mL H* ng/mL 0.060 ng/mL H* ng/mL (0.000-0.034) (0.000-0.034) Total Protein Albumin 07/13/22 07/13/22 07:52 07:52 WBC RBC Hgb Hct MCV MCH MCHC RDW Plt Count MPV Sodium 138 mmol/L mmol/L (137-145) Potassium 3.3 mmol/L L mmol/L (3.4-5.0) Chloride 105 mmol/L mmol/L (98-107) Carbon Dioxide 27 mmol/L mmol/L (22-30) Anion Gap 6 mmol/L L mmol/L (8-16) BUN 11 mg/dL mg/dL (7-17) Creatinine 0.70 mg/dL mg/dL (0.7-1.0) Estim Creat Clear Calc 41 ml/min ml/min Estimated GFR > 60 (59 - ) Glucose 108 mg/dL mg/dL (65-110) Calcium 8.5 mg/dL mg/dL (8.4-10.2) Total Bilirubin 0.8 mg/dL mg/dL (0.2-1.3) Direct Bilirubin 0.0 mg/dL mg/dL (0-0.3) AST 35 U/L U/L (14-36) ALT 15 U/L U/L (6-35) Alkaline Phosphatase 90 U/L U/L (38-126) Troponin I Total Protein 7.0 g/dL g/dL (6.3-8.2) Albumin 3.6 g/dL g/dL (3.5-5.1) Patient hx anesthesia problems: none Family hx anesthesia problems: none Results Review: All pre-operative results and documents have been reviewed as part of the pre-operative evaluation. [facility] Past Medical History Medical History Anxiety and depression Breast cancer Cerebrovascular accident Dementia Hypertension Parkinsons disease Surgical History Surgical History (Reviewed 07/13
--- NOTE | 2022-07-13 13:48 | WPDHPUPDATE1 ---
History and Physical Update Update Date/Time: 07/13/22 13:48 History and Physical has been reviewed, including an updated exam of the patient. There are NO changes in the patient's condition. Risks, benefits, and alternatives have been discussed and questions answered. Patient agrees to proceed with procedure.
[2022-07-13] MEDS: BUPIVACAINE/EPINEPHRINE 0.25% 50 ML VIAL INFILTRATE (14:20)
--- NOTE | 2022-07-13 17:11 | W.PM.PROC2 ---
Procedure Note - Detailed Date of Procedure 07/13/22 Pre-op Diagnosis Cholelithiasis with cholecystitis Post-op Diagnosis Other (Acute on chronic cholecystitis, cholelithiasis, hydrops of gallbladder) Procedure Performed Laparoscopic cholecystectomy Surgeon Haris Concepcion MD .Net Developer Akua PAZ, Vilma PAZ Anesthesia General and Local (0.25% Marcaine with epinephrine) Indications The patient presented with right upper quadrant abdominal pain and CT scan that suggested cholecystitis. She has significant comorbid conditions with dementia and Parkinson's disease. She had an ultrasound and HIDA scan both of which also showed acute cholecystitis. She had a cardiac workup regarding potential chest pain and this was not consistent with acute coronary syndrome. She is taken to surgery now for laparoscopic cholecystectomy for cholecystitis and gallstones. Findings Patient had severe cholecystitis both acute and chronic. There were adhesions to the gallbladder of the transverse colon and omentum. The gallbladder was very thickened. There was hydrops of the gallbladder. The gallbladder wall was so thickened and stiff that it could not really be grasped even after it was decompressed. Gallbladder was very dilated. There was severe inflammation between the gallbladder and the liver. The entire dissection was extremely bloody, much more bloody than usual. Blood loss was 200 cc which is 8-10 times would usually is for this operation. The epigastric trocar site had to be opened 2-3 times its normal dimension to accommodate the gallbladder with its thickened wall and stones. The dissection of the cystic duct and dissection of the gallbladder from the liver was extremely difficult due to the inflammation obscuring tissue planes and making the area hypervascular. Procedure itself took nearly 2 hours which is at least 3 times longer than usual. Description of Procedure Patient was taken to surgery and induced into general anesthesia. The abdomen is prepped and draped. Trocars were placed in the usual fashion using [employer] optical trocars and a 5 mm camera. Once we had insufflated the abdomen we reviewed the gallbladder and the adhesions to the gallbladder. We started taking down some of these adhesions and found the gallbladder to be very thickened and extremely distended. A laparoscopic aspirator was used and we suctioned away some of the gallbladder content. The content was clear consistent with a hydrops of the gallbladder. Once the gallbladder was decompressed it was still nearly impossible to grasp as it is wall was so thickened and stiff. We continued taking the adhesions down from the gallbladder and eventually expose the infundibulum. Gallbladder had to be pushed anterosuperiorly to expose the infundibulum and cholecystohepatic triangle as we could not grasp it. Dissection was then carried out in the cholecystohepatic triangle. Although some sharp dissection was used, there was a lot of bleeding and oozing of tissue fluid. This was difficult slow dissection taking great care not to injure any of the biliary ductal system. We carefully freed the thickened peritoneum from the gallbladder. Eventually we were able to dissect some of the gallbladder off the liver and then dissect the cystic duct off the gallbladder. The cystic duct and common duct were dilated. We eventually dissected the cystic artery as well. Critical view was achieved. I then securely clipped and divided the cystic artery. I continued dissection of the gallbladder off the liver and also dissection of the cystic duct. The cystic duct was fairly short and dilated. Even though I clipped and divided the cystic duct very close to the gallbladder, there was not much of a cystic duct stump. I was able to use a Vicryl endoloop and pull up the cystic duct stump. I ligated the cystic duct stump with a Vicryl endoloop securely. We checked and recheck to this ligature
--- NOTE | 2022-07-13 18:53 | PC.NURSE ---
Pt had lapchole done today. Pt returned to unit. Pt resting in bed. Will continue to monitor pt.
[2022-07-13] MEDS: QUEtiapine FUMARATE 100 MG TABLET PO (20:23)
[2022-07-13] MEDS: fentaNYL CITRATE INJ (*CRX) 100 MCG/2 ML VIAL 25 MCG IV PUSH (20:41)
[2022-07-14 00:38] VITALS: BP 135/84; PULSE 70; RESP 16; TEMP 36.8; O2SAT 99
[2022-07-14 05:48] VITALS: BP 119/54; PULSE 69; RESP 16; TEMP 36.6; O2SAT 98
[2022-07-14 06:32] LABS: Basophils Percent Auto 0.4 % (0.2-1.2); Eosinophils Absolute Auto 0.1 K/mm3 (0-0.3); Eosinophils Percent Auto 0.6 % (0-4.4); Hematocrit 33.4 % (37.0-47.0); Hemoglobin 10.9 g/dL (12.0-15.0); Immature Granulocyte Absolute 0.03 K/mm3 (0.00-0.031); Immature Granulocyte Percent A 0.4 % (0-0.5); Lymphocytes Absolute Auto 1.15 K/mm3 (0.9-3.2); Lymphocytes Percent Auto 14.5 % (18.3-44.2); Mean Corpuscular HGB Conc 32.6 g/dl (32-36); Mean Corpuscular Hemoglobin 28.2 pg (26-34); Mean Corpuscular Volume 86.3 fl (80-100); Mean Platelet Volume 10.8 fl (7.4-10.4); Monocytes Absolute Auto 0.9 K/mm3 (0.1-0.6); Monocytes Percent Auto 11.6 % (2.6-8.5); Neutrophils Absolute Auto 5.7 K/mm3 (1.3-6.7); Neutrophils Percent Auto 72.5 % (45.5-73.1); Platelet Count Result 150 k/mm3 (150-375); Red Blood Count 3.87 M/mm3 (4.2-5.4); Red Cell Distribution Width 13.1 % (11.5-14.5); White Blood Count 7.9 K/mm3 (4.5-10.0)
[2022-07-14 06:40] LABS: Alanine Aminotransferase 11 U/L (6-35); Alkaline Phosphatase 75 U/L (38-126); Anion Gap 5 mmol/L (8-16); Aspartate Amino Transferase 62 U/L (14-36); Bilirubin,Total 0.7 mg/dL (0.2-1.3); Blood Urea Nitrogen 8 mg/dL (7-17); Calcium 7.9 mg/dL (8.4-10.2); Carbon Dioxide 25 mmol/L (22-30); Chloride 105 mmol/L (98-107); Estimated CRCL calculation 41 ml/min; Estimated Glomerular Filt Rate > 60; Glucose 101 mg/dL (65-110); Magnesium 1.7 mg/dL (1.6-2.3); Potassium 3.3 mmol/L (3.4-5.0); Sodium 135 mmol/L (137-145)
--- NOTE | 2022-07-14 09:05 | WPDANESPN ---
Anes - Prog Note Post-Op Date/Time: 07/14/22 09:05 Cardiovascular status: normal Respiratory status: normal Airway patency: baseline Mental status: baseline Post-Op hydration status: normal Vital Signs: Last Vital Signs Temp 97.9 F 07/14/22 05:48 Pulse 69 07/14/22 05:48 Resp 16 07/14/22 05:48 BP 119/54 L 07/14/22 05:48 Pulse Ox 98 07/14/22 05:48 O2 Del Method Room Air 07/13/22 20:00 O2 Flow Rate 8 07/13/22 16:40 Pain Score (VAS): 0/10 I/O: Intake & Output 07/13/22 07/14/22 07/14/22 23:59 07:59 15:59 Intake Total 150 100 Output Total 115 664 Balance 35 -564 Laboratory Tests 07/14/22 05:59 07/14/22 05:59 07/13/22 07/14/22 07/14/22 07:52 05:59 05:59 WBC 7.9 RBC 3.87 L Hgb 10.9 L Hct 33.4 L MCV 86.3 MCH 28.2 MCHC 32.6 RDW 13.1 Plt Count 150 MPV 10.8 H Immature Gran % (Auto) 0.4 Neut % (Auto) 72.5 Lymph % (Auto) 14.5 L [place] % (Auto) 11.6 H Eos % (Auto) 0.6 Baso % (Auto) 0.4 Lymph # (Auto) 1.15 [place] # (Auto) 0.9 H Eos # (Auto) 0.1 Baso # (Auto) 0.0 Abs Immat Gran (auto) 0.03 Absolute Neuts (auto) 5.7 Absolute Nucleated RBC 0.0 Nucleated RBC % 0.0 Sodium 135 L Potassium 3.3 L Chloride 105 Carbon Dioxide 25 Anion Gap 5 L BUN 8 Creatinine 0.70 Estim Creat Clear Calc 41 Estimated GFR > 60 Glucose 101 Calcium 7.9 L Magnesium 1.7 Total Bilirubin 0.8 0.7 Direct Bilirubin 0.0 AST 35 62 H ALT 15 11 Alkaline Phosphatase 90 75 Total Protein 7.0 6.0 L Albumin 3.6 3.0 L Post-procedural complaints: none Patient Feedback: Patient satisfied with anesthetic care.
[2022-07-14] MEDS: CARBIDOPA/LEVODOPA 25/100 MG CR TABLET 2 TABLET PO (10:08)
[2022-07-14] MEDS: MEMANTINE 10 MG TABLET PO (10:09)
[2022-07-14] MEDS: LETROZOLE (*CHEMO) 2.5 MG TABLET PO (10:09)
[2022-07-14] MEDS: QUEtiapine FUMARATE 25 MG TABLET PO (10:09)
[2022-07-14] MEDS: ENOXAPARIN 40 MG/0.4 ML SYRINGE SUB-Q (10:12)
[2022-07-14] MEDS: POTASSIUM CHLORIDE INJ 40 MEQ in SODIUM CHLORIDE 0.9% IV 500 ML 130 MEQ IVPB (10:13)
[2022-07-14] MEDS: fentaNYL CITRATE INJ (*CRX) 100 MCG/2 ML VIAL 25 MCG IV PUSH ×2 (10:18→17:46)
[2022-07-14] MEDS: POTASSIUM CHLORIDE 20 MEQ PACKET (FOR LIQUID) 40 MEQ PO ×2 (10:18→17:43)
--- NOTE | 2022-07-14 12:56 | PM.PNGS ---
Progress Note: A&P Assessment and Plan (1) Acute cholecystitis: Code(s): K81.0 - Acute cholecystitis Status: Acute Assessment and Plan: Post-op day 1 and doing well. Continue to monitor KATHRINE drain, which has serosanguineous drainage today. Tolerating clear liquids, may start advancing diet if she continues to do well. Continue IV Zosyn. Will order PT/OT today. (2) Substernal chest pain: Code(s): R07.2 - Precordial pain Status: Acute Assessment and Plan: Complaints of chest pain yesterday. Cardiology evaluated pre-op and did not suspect ACS episode. No complaints of chest pain for me this morning. (3) Dementia: Code(s): F03.90 - Unspecified dementia, unspecified severity, without behavioral disturbance, psychotic disturbance, mood disturbance, and anxiety Status: Chronic (4) Parkinsons disease: Code(s): G20 - Parkinson's disease Status: Chronic Plan I have discussed the patient's case and plan of care with Dr. Concepcion. Subjective Subjective Date/Time Seen: 07/14/22 10:56 Patient reports: no new complaints and afebrile Interval history: Patient seen this morning with her daughter at the bedside. She is grimacing and does report some abdominal pain pointing at the epigastric incision. Tolerating clear liquids well. Per nursing, no acute events or other issues overnight. KATHRINE drain with serosanguineous drainage. Review of Systems Review of Systems: ROS unobtainable: Yes unobtainable due to mental status (dementia) Exam Const: General: no acute distress and awake Orientation/consciousness: confusion GI: Inspection: non-distended, incision (incisions dry and intact) and other (KATHRINE drain with scant serosanguineous drainage) GI Palp: Yes Soft to palpation and Yes Tenderness to palpation present (GI) (incisional) Auscultation: normal bowel sounds Neuro: General: moves all extremities and no focal motor deficits Extrem: General: no calf tenderness and no edema Objective Data Vital Signs Vital Signs: Vital Signs - 24 hr 07/13/22 13:21 07/13/22 16:28 07/13/22 16:40 Temperature 98.2 F 97.2 F L Pulse Rate 59 L 78 71 Respiratory Rate 16 16 15 Blood Pressure 167/69 H 132/61 122/71 Pulse Oximetry 95 100 100 Oxygen Delivery Room Air Simple Face Mask Simple Face Mask Oxygen Flow Rate 8 8 07/13/22 16:55 07/13/22 17:10 07/13/22 17:25 Temperature Pulse Rate 72 71 73 Respiratory Rate 14 14 14 Blood Pressure 133/77 143/64 H 132/76 Pulse Oximetry 100 100 100 Oxygen Delivery Room Air Room Air Room Air Oxygen Flow Rate 07/13/22 17:40 07/13/22 17:50 07/13/22 18:05 Temperature 97.2 F L Pulse Rate 64 65 67 Respiratory Rate 17 17 15 Blood Pressure 147/70 H 148/70 H 161/72 H Pulse Oximetry 100 100 100 Oxygen Delivery Room Air Room Air Room Air Oxygen Flow Rate 07/13/22 18:25 07/13/22 18:40 07/13/22 19:10 Temperature 96.3 F L 96.5 F L 96.0 F L Pulse Rate 67 67 68 Respiratory Rate 20 20 20 Blood Pressure 147/69 H 163/77 H 177/86 H Pulse Oximetry 100 100 100 Oxygen Delivery Oxygen Flow Rate 07/13/22 20:28 07/14/22 00:38 07/13/22 20:00 Temperature 96.5 F L 98.3 F Pulse Rate 64 70 70 Respiratory Rate 18 16 16 Blood Pressure 174/73 H 135/84 Pulse Oximetry 96 99 99 Oxygen Delivery Room Air Oxygen Flow Rate 07/14/22 05:48 Temperature 97.9 F Pulse Rate 69 Respiratory Rate 16 Blood Pressure 119/54 L Pulse Oximetry 98 Oxygen Delivery Oxygen Flow Rate Intake/Output Intake/Output: Intake & Output 07/11/22 07/12/22 07/13/22 07/14/22 23:59 23:59 23:59 23:59 Intake Total 3200 1300 1300 268 Output Total 50 315 664 Balance 3200 1250 985 -396 Meds/Results Medications: Active Medications Generic Name Dose Route Start Last Admin Trade Name Katia PRN Reason Stop Dose Admin Carbidopa/Levodopa 2 tablet 07/12/22 09:00 07/14/22 10:08 Carbidopa/Levodopa 25/100 Mg Cr Tablet PO 2 tablet DAILY [facility]
--- NOTE | 2022-07-14 13:35 | PCOTNOTE ---
Occupational therapy evaluation attempted. Unable to be completed due to patient current level of arousal and not keeping eyes open. Nurse and therapist attempted to wake patient asking patient to open her eyes, patient would open eyes and then close them again. Patient screamed unrecognizable verbiage at therapist and closed her eyes again. Will follow up.
[2022-07-14 14:00] VITALS: BP 98/76; PULSE 85; RESP 16; O2SAT 97
--- NOTE | 2022-07-14 14:32 | PC.NURSE ---
Addendum entered by Ibeth Vance RN 07/14/22 14:37: Provider verbalized ok to do supplemental Potassium. Original Note: Dr Nazario notifed that patient is a difficult stick and only has a 24 g in her right hand. I attempted to place another peripheral IV without success. Spoke with the provider about supplementing with PO instead of IV K due to patient's intolerance.
--- NOTE | 2022-07-14 16:33 | PM.IMPN ---
Progress Note: A&P Assessment and Plan (1) Moderate aortic valve stenosis: Code(s): I35.0 - Nonrheumatic aortic (valve) stenosis Status: Acute Assessment and Plan: Know history of heart murmur (2) Acute cholecystitis: Code(s): K81.0 - Acute cholecystitis Status: Acute Assessment and Plan: Presenting symptom. 19 K wBC count on admission with right upper quadrant abdominal pain. CT ultrasound and HIDA scan consistent with acute cholecystitis General surgery consulted Cardiology consulted for pre operative risk stratification given findings of elevated troponin EKG changes. Echo planned. Acceptable risk for the planned surgery per Cardiology Patient status post cholecystectomy 07/13/2022 (3) Anxiety and depression: Code(s): F41.9 - Anxiety disorder, unspecified; F32.A - Depression, unspecified Status: Acute Assessment and Plan: Pt takes seroquel, home medications (4) Dementia: Code(s): F03.90 - Unspecified dementia, unspecified severity, without behavioral disturbance, psychotic disturbance, mood disturbance, and anxiety Status: Chronic Assessment and Plan: Pt takes seroquel, mood is stable (5) Parkinsons disease: Code(s): G20 - Parkinson's disease Status: Chronic Assessment and Plan: Pt takes carbidopa and levodopa, Parkinsons is well controlled (6) Substernal chest pain: Code(s): R07.2 - Precordial pain Status: Acute Assessment and Plan: Ekg 07/12/[address]-T changes in inferior and lateral leads and low voltage Troponin ordered which was mildly elevated with flat trajectory. Echo ordered. Cardiology consulted. Discussed with them. Troponin likely noncardiac likely due to her underlying acute cholecystitis Echo/ normal left ventricular size and mild concentric hypertrophy ejection fraction 77% grade 2 diastolic dysfunction. Moderate aortic valve stenosis mild pulmonary hypertension. Plan Continue postoperative care as ordered DVT prophylaxis Lovenox Subjective Date/time seen: 07/14/22 16:33 Interval history: Chart reviewed. Discussed with Cardiology. Presented with right upper quadrant abdominal pain. Point of care ultrasound revealed thickened gallbladder wall with pericholecystic fluid and gallstones in the gallbladder. Crockett sign positive consistent with acute cholecystitis. CT scan of the abdomen and pelvis showed inflammation of the gallbladder. WBC count 19 K on admission. General surgery was consulted. Mildly elevated troponin which remained flat. History of moderate aortic valve stenosis. Underlying dementia heart disease. Gallbladder ultrasound with cholelithiasis with gallbladder wall thickening and pericholecystic fluid has conversant with acute cholecystitis. Intra and extrahepatic bile duct and pancreatic duct dilatation without any occasion obstructive duct stone or mass. HIDA scan performed 07/12/2022 with no been activity in the gallbladder including 30 minutes post morphine administration which did consistent with acute cholecystitis. LFT on admission was normal. Troponin trend 0.083-0.07 3-0.060. Leukocytosis is resolved. Remains on IV Zosyn. 07/13/2022 seen after the surgery. Somnolent. Reports pain in the right upper quadrant. Drain in place. 07/14/22 postoperative day 1 patient does not verbalize much. Labs reviewed. Discussed with the nursing staff.. Review of Systems Review of Systems: ROS unobtainable: Yes unobtainable due to mental status Exam Narrative: ? APPEARANCE: No apparent distress. Head: atraumatic. Normocephalic EYES:? EOMI, NOSE: Atraumatic NECK: Trachea midline RESPIRATORY: No increased rate of breathing CARDIOVASCULAR: RRR, ABDOMINAL: Tender to palpation in the right upper quadrant, drain in place surgical incision noted on abdomen.? Bowel sounds present. MUSCULOSKELETAl: No obvious deformities NEURO: Alert. Minimally verbal.
[2022-07-14 22:00] VITALS: BP 117/42; PULSE 57; RESP 16; TEMP 35.7; O2SAT 98
[2022-07-15 05:36] VITALS: BP 140/50; PULSE 69; RESP 16; TEMP 34.9; O2SAT 99
[2022-07-15 05:49] VITALS: TEMP 36.1
[2022-07-15 06:30] LABS: Basophils Absolute Auto 0.1 K/mm3 (0.0-0.1); Basophils Percent Auto 0.6 % (0.2-1.2); Eosinophils Absolute Auto 0.2 K/mm3 (0-0.3); Eosinophils Percent Auto 2.3 % (0-4.4); Hematocrit 32.9 % (37.0-47.0); Hemoglobin 10.2 g/dL (12.0-15.0); Immature Granulocyte Absolute 0.09 K/mm3 (0.00-0.031); Immature Granulocyte Percent A 1.1 % (0-0.5); Lymphocytes Absolute Auto 1.74 K/mm3 (0.9-3.2); Lymphocytes Percent Auto 20.6 % (18.3-44.2); Mean Corpuscular Hemoglobin 28.2 pg (26-34); Mean Corpuscular Volume 90.9 fl (80-100); Mean Platelet Volume 10.3 fl (7.4-10.4); Monocytes Percent Auto 12.1 % (2.6-8.5); Neutrophils Absolute Auto 5.4 K/mm3 (1.3-6.7); Neutrophils Percent Auto 63.3 % (45.5-73.1); Platelet Count Result 164 k/mm3 (150-375); Red Blood Count 3.62 M/mm3 (4.2-5.4); Red Cell Distribution Width 13.2 % (11.5-14.5); White Blood Count 8.4 K/mm3 (4.5-10.0)
[2022-07-15 06:44] LABS: Alanine Aminotransferase 8 U/L (6-35); Albumin Level 3.1 g/dL (3.5-5.1); Alkaline Phosphatase 70 U/L (38-126); Anion Gap 2 mmol/L (8-16); Aspartate Amino Transferase 39 U/L (14-36); Bilirubin,Total 0.7 mg/dL (0.2-1.3); Blood Urea Nitrogen 6 mg/dL (7-17); Calcium 8.1 mg/dL (8.4-10.2); Carbon Dioxide 27 mmol/L (22-30); Chloride 106 mmol/L (98-107); Estimated CRCL calculation 41 ml/min; Estimated Glomerular Filt Rate > 60; Glucose 97 mg/dL (65-110); Magnesium 1.9 mg/dL (1.6-2.3); Potassium 3.5 mmol/L (3.4-5.0); Sodium 135 mmol/L (137-145)
--- NOTE | 2022-07-15 07:51 | PM.PNGS ---
Progress Note: A&P Assessment and Plan (1) Chronic cholecystitis due to gallbladder calculus with obstruction: Code(s): K80.11 - Calculus of gallbladder with chronic cholecystitis with obstruction Status: Acute Assessment and Plan: Stable following surgery 2 days ago. Not taking much of the clear liquids. Will advance to soft diet. No bile in KATHRINE drain. Continue IV antibiotics for now. Could be converted to oral antibiotics in 24-48 hours. Surgery was difficult, would not be surprised if take some time to recover. Subjective Subjective Date/Time Seen: 07/15/22 07:51 Post Op day: 2 Patient reports: other (Nonverbal) Review of Systems Review of Systems: ROS unobtainable: Yes unobtainable due to mental status Exam Const: General: comfortable, no acute distress and thin Orientation/consciousness: Other orientation findings (Nonverbal) GI: Inspection: incision (Healing well, KATHRINE serosanguineous) GI Palp: Yes Soft to palpation and Yes Tenderness to palpation present (GI) (Seems tender right upper quadrant) Objective Data Vital Signs Vital Signs: Vital Signs - 24 hr 07/14/22 14:00 07/14/22 20:00 07/14/22 22:00 Temperature 35.7 C L Pulse Rate 85 57 L Respiratory Rate 16 16 Blood Pressure 98/76 L 117/42 L Pulse Oximetry 97 98 Oxygen Delivery Room Air 07/15/22 05:36 07/15/22 05:49 Temperature 34.9 C L 36.1 C L Pulse Rate 69 Respiratory Rate 16 Blood Pressure 140/50 L Pulse Oximetry 99 Oxygen Delivery Intake/Output Intake/Output: Intake & Output 07/12/22 07/13/22 07/14/22 07/15/22 23:59 23:59 23:59 23:59 Intake Total 1300 1300 608 150 Output Total 50 315 664 815 Balance 1250 985 -56 -665 Meds/Results Medications: Active Medications Generic Name Dose Route Start Last Admin Trade Name Freq PRN Reason Stop Dose Admin Hydrocodone Bitart/Acetaminophen 1 tab 07/14/22 20:04 Hydrocodone/Acetaminophen (*Crx) 5-325 Mg Tablet PO Q4H PRN Pain Rated 4-6 Carbidopa/Levodopa 2 tablet 07/12/22 09:00 07/14/22 10:08 Carbidopa/Levodopa 25/100 Mg Cr Tablet PO 2 tablet DAILY [facility] Administration Enoxaparin Sodium 40 mg 07/14/22 09:00 07/14/22 10:12 Enoxaparin 40 Mg/0.4 Ml Syringe SUB-Q 40 mg DAILY [facility] Administration Fentanyl Citrate 25 mcg 07/13/22 18:13 07/14/22 17:46 Fentanyl Citrate Inj (*Crx) 100 Mcg/2 Ml Vial IV PUSH 25 mcg Q2H PRN Administration Pain Rated 7-10 Piperacillin Sod/Tazobactam Sod 2.25 gm in 50 mls @ 100 mls/hr 07/12/22 18:00 07/15/22 05:40 Zosyn 2.25 Gm/D5w 50 Ml IVPB Infused Q6H [facility] Infusion Letrozole 2.5 mg 07/12/22 09:00 07/14/22 10:09 Letrozole (*Chemo) 2.5 Mg Tablet PO 2.5 mg DAILY [facility] Administration Memantine 10 mg 07/12/22 09:00 07/14/22 10:09 Memantine 10 Mg Tablet PO 10 mg DAILY [facility] Administration Potassium Chloride 40 meq 07/13/22 09:00 07/14/22 10:18 Potassium Chloride 20 Meq Packet (For Liquid) PO 40 meq DAILY [facility] Administration Quetiapine Fumarate 25 mg 07/12/22 09:00 07/14/22 10:09 Quetiapine Fumarate 25 Mg Tablet PO 08/11/22 08:59 25 mg QAM [facility] Administration Quetiapine Fumarate 100 mg 07/11/22 21:00 07/14/22 21:25 Quetiapine Fumarate 100 Mg Tablet PO Not Given QHS [facility] Radiology Results: ITS Impressions Abdomen/Pelvis CT 07/11/22 05:49 Impression: Gallbladder wall thickening and/or pericholecystic fluid are consistent with acute cholecystitis. Correlate clinically. Consider HIDA scan as indicated. Internal and external biliary dilatation, as detailed above. No definite obstructing mass identified. 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 Fibroid uterus, as above. Abdomen Ultrasound 07/12/22 15:02 IMPRESSION: Cholelithiasis, with gallbladder wall thickening and pericholecystic fluid as can be seen with acute cholecystitis. Intra and extrahepat
--- NOTE | 2022-07-15 16:02 | PM.IMPN ---
Progress Note: A&P Assessment and Plan (1) Moderate aortic valve stenosis: Code(s): I35.0 - Nonrheumatic aortic (valve) stenosis Status: Acute Assessment and Plan: Know history of heart murmur (2) Acute cholecystitis: Code(s): K81.0 - Acute cholecystitis Status: Acute Assessment and Plan: Presenting symptom. 19 K wBC count on admission with right upper quadrant abdominal pain. CT ultrasound and HIDA scan consistent with acute cholecystitis General surgery consulted Cardiology consulted for pre operative risk stratification given findings of elevated troponin EKG changes. Echo planned. Acceptable risk for the planned surgery per Cardiology Patient status post cholecystectomy 07/13/2022 (3) Anxiety and depression: Code(s): F41.9 - Anxiety disorder, unspecified; F32.A - Depression, unspecified Status: Acute Assessment and Plan: Pt takes seroquel, home medications (4) Dementia: Code(s): F03.90 - Unspecified dementia, unspecified severity, without behavioral disturbance, psychotic disturbance, mood disturbance, and anxiety Status: Chronic Assessment and Plan: Pt takes seroquel, mood is stable (5) Parkinsons disease: Code(s): G20 - Parkinson's disease Status: Chronic Assessment and Plan: Pt takes carbidopa and levodopa, Parkinsons is well controlled (6) Substernal chest pain: Code(s): R07.2 - Precordial pain Status: Acute Assessment and Plan: Ekg 07/12/[address]-T changes in inferior and lateral leads and low voltage Troponin ordered which was mildly elevated with flat trajectory. Echo ordered. with EF of more than 70% moderate aortic valve stenosis grade 1 diastolic dysfunction Cardiology consulted. Discussed with them. Troponin likely noncardiac likely due to her underlying acute cholecystitis Echo/ normal left ventricular size and mild concentric hypertrophy ejection fraction 77% grade 2 diastolic dysfunction. Moderate aortic valve stenosis mild pulmonary hypertension. Plan Continue postoperative care as ordered DVT prophylaxis Lovenox Subjective Date/time seen: 07/15/22 16:02 Interval history: Chart reviewed. Discussed with Cardiology. Presented with right upper quadrant abdominal pain. Point of care ultrasound revealed thickened gallbladder wall with pericholecystic fluid and gallstones in the gallbladder. Crockett sign positive consistent with acute cholecystitis. CT scan of the abdomen and pelvis showed inflammation of the gallbladder. WBC count 19 K on admission. General surgery was consulted. Mildly elevated troponin which remained flat. History of moderate aortic valve stenosis. Underlying dementia heart disease. Gallbladder ultrasound with cholelithiasis with gallbladder wall thickening and pericholecystic fluid has conversant with acute cholecystitis. Intra and extrahepatic bile duct and pancreatic duct dilatation without any occasion obstructive duct stone or mass. HIDA scan performed 07/12/2022 with no been activity in the gallbladder including 30 minutes post morphine administration which did consistent with acute cholecystitis. LFT on admission was normal. Troponin trend 0.083-0.07 3-0.060. Leukocytosis is resolved. Remains on IV Zosyn. 07/13/2022 seen after the surgery. Somnolent. Reports pain in the right upper quadrant. Drain in place. 07/14/22 postoperative day 1 patient does not verbalize much. Labs reviewed. Discussed with the nursing staff.. 07/15/2022: Postoperative day 2. Patient eating very little. Family at bedside. Labs reviewed. Soreness in the belly reported Review of Systems Review of Systems: All systems reviewed & are unremarkable except as noted in HPI and below Exam Narrative: ? APPEARANCE: No apparent distress. Head: atraumatic. Normocephalic EYES:? EOMI, NOSE: Atraumatic RESPIRATORY: No increased rate of breathing diminished breath so
[2022-07-15] MEDS: POTASSIUM CHLORIDE 20 MEQ PACKET (FOR LIQUID) 40 MEQ PO (18:03)
[2022-07-15] MEDS: HYDROcodone/acetaminophen (*CRX) 5-325 MG TABLET 1 TAB PO (18:04)
[2022-07-15] MEDS: ENOXAPARIN 40 MG/0.4 ML SYRINGE SUB-Q (18:05)
[2022-07-15 20:00] VITALS: PULSE 69; RESP 16; O2SAT 99
[2022-07-15] MEDS: PIPERACILLIN/TAZ 2.25G/NS 50ML 2.25 GM/50 ML BAG IVPB (21:24)
[2022-07-15 22:00] VITALS: BP 135/83; PULSE 57; RESP 16; TEMP 36.2
[2022-07-16] MEDS: PIPERACILLIN/TAZ 2.25G/NS 50ML 2.25 GM/50 ML BAG IVPB ×4 (03:36→20:34)
[2022-07-16 06:00] VITALS: BP 162/60; PULSE 60; RESP 16; TEMP 36.4; O2SAT 99
[2022-07-16 06:57] LABS: Basophils Absolute Auto 0.1 K/mm3 (0.0-0.1); Basophils Percent Auto 0.6 % (0.2-1.2); Eosinophils Absolute Auto 0.3 K/mm3 (0-0.3); Hematocrit 33.4 % (37.0-47.0); Hemoglobin 10.5 g/dL (12.0-15.0); Immature Granulocyte Absolute 0.12 K/mm3 (0.00-0.031); Immature Granulocyte Percent A 1.4 % (0-0.5); Lymphocytes Absolute Auto 1.73 K/mm3 (0.9-3.2); Lymphocytes Percent Auto 20.2 % (18.3-44.2); Mean Corpuscular HGB Conc 31.4 g/dl (32-36); Mean Corpuscular Hemoglobin 27.6 pg (26-34); Mean Corpuscular Volume 87.9 fl (80-100); Mean Platelet Volume 10.3 fl (7.4-10.4); Monocytes Absolute Auto 0.7 K/mm3 (0.1-0.6); Monocytes Percent Auto 7.8 % (2.6-8.5); Neutrophils Absolute Auto 5.7 K/mm3 (1.3-6.7); Platelet Count Result 200 k/mm3 (150-375); Red Cell Distribution Width 13.2 % (11.5-14.5); White Blood Count 8.6 K/mm3 (4.5-10.0)
[2022-07-16 07:14] LABS: Alanine Aminotransferase 17 U/L (6-35); Albumin Level 3.3 g/dL (3.5-5.1); Alkaline Phosphatase 79 U/L (38-126); Anion Gap 9 mmol/L (8-16); Aspartate Amino Transferase 37 U/L (14-36); Bilirubin,Total 0.7 mg/dL (0.2-1.3); Blood Urea Nitrogen 7 mg/dL (7-17); Calcium 8.2 mg/dL (8.4-10.2); Carbon Dioxide 25 mmol/L (22-30); Chloride 105 mmol/L (98-107); Estimated CRCL calculation 41 ml/min; Estimated Glomerular Filt Rate > 60; Glucose 82 mg/dL (65-110); Magnesium 2.1 mg/dL (1.6-2.3); Sodium 139 mmol/L (137-145)
[2022-07-16] MEDS: QUEtiapine FUMARATE 25 MG TABLET PO (08:17)
[2022-07-16] MEDS: CARBIDOPA/LEVODOPA 25/100 MG CR TABLET 2 TABLET PO (08:17)
[2022-07-16] MEDS: MEMANTINE 10 MG TABLET PO (08:17)
[2022-07-16] MEDS: LETROZOLE (*CHEMO) 2.5 MG TABLET PO (08:17)
[2022-07-16] MEDS: POTASSIUM CHLORIDE 20 MEQ PACKET (FOR LIQUID) 40 MEQ PO ×2 (08:38→11:35)
[2022-07-16] MEDS: ACETAMINOPHEN 325 MG TABLET 650 MG PO (10:02)
--- NOTE | 2022-07-16 11:17 | PM.PNGS ---
Progress Note: A&P Assessment and Plan (1) Acute cholecystitis: Code(s): K81.0 - Acute cholecystitis Status: Acute Assessment and Plan: exam benign, cont drain and abx, plan to dc drain tomorrow, will need to complete 7 d postop course of abx Subjective Subjective Date/Time Seen: 07/16/22 11:17 no acute issues, still c some incisional pain, crystal diet although only moderate intake Review of Systems Review of Systems: All systems reviewed & are unremarkable except as noted in HPI and below Exam Const: General: cooperative, comfortable, no acute distress and ill appearing GI: Inspection: normal to inspection, distended and incision GI Palp: Yes abdominal tenderness Other: KATHRINE c s/s output Objective Data Vital Signs Vital Signs: Vital Signs - 24 hr 07/15/22 12:52 07/15/22 20:00 07/15/22 22:00 Temperature 36.2 C L Pulse Rate 69 57 L Respiratory Rate 16 16 Blood Pressure 135/83 Pulse Oximetry 99 Oxygen Delivery Room Air Room Air 07/16/22 06:00 07/16/22 08:15 Temperature 36.4 C L Pulse Rate 60 Respiratory Rate 16 Blood Pressure 162/60 H Pulse Oximetry 99 Oxygen Delivery Room Air Intake/Output Intake/Output: Intake & Output 07/13/22 07/14/22 07/15/22 07/16/22 23:59 23:59 23:59 23:59 Intake Total 1300 608 200 600 Output Total 428 247 4820 400 Balance 985 -56 -915 200 Meds/Results Medications: Active Medications Generic Name Dose Route Start Last Admin Trade Name Tristenq PRN Reason Stop Dose Admin Acetaminophen 650 mg 07/16/22 09:48 07/16/22 10:02 Acetaminophen 325 Mg Tablet PO 650 mg Q6H PRN Administration Mild Pain (1-3) or Fever Hydrocodone Bitart/Acetaminophen 1 tab 07/14/22 20:04 07/15/22 18:04 Hydrocodone/Acetaminophen (*Crx) 5-325 Mg Tablet PO 1 tab Q4H PRN Administration Pain Rated 4-6 Carbidopa/Levodopa 2 tablet 07/12/22 09:00 07/16/22 08:17 Carbidopa/Levodopa 25/100 Mg Cr Tablet PO 2 tablet DAILY [facility] Administration Enoxaparin Sodium 40 mg 07/14/22 09:00 07/15/22 18:05 Enoxaparin 40 Mg/0.4 Ml Syringe SUB-Q 40 mg DAILY [facility] Administration Fentanyl Citrate 25 mcg 07/13/22 18:13 07/14/22 17:46 Fentanyl Citrate Inj (*Crx) 100 Mcg/2 Ml Vial IV PUSH 25 mcg Q2H PRN Administration Pain Rated 7-10 Piperacillin Sod/Tazobactam Sod 2.25 gm in 50 mls @ 100 mls/hr 07/15/22 21:00 07/16/22 08:18 Zosyn 2.25 Gm/Ns 50 Ml IVPB 100 mls/hr Q6H [facility] Administration Letrozole 2.5 mg 07/12/22 09:00 07/16/22 08:17 Letrozole (*Chemo) 2.5 Mg Tablet PO 2.5 mg DAILY [facility] Administration Memantine 10 mg 07/12/22 09:00 07/16/22 08:17 Memantine 10 Mg Tablet PO 10 mg DAILY [facility] Administration Potassium Chloride 40 meq 07/13/22 09:00 07/16/22 08:38 Potassium Chloride 20 Meq Packet (For Liquid) PO 40 meq DAILY [facility] Administration Quetiapine Fumarate 25 mg 07/12/22 09:00 07/16/22 08:17 Quetiapine Fumarate 25 Mg Tablet PO 08/11/22 08:59 25 mg QAM [facility] Administration Quetiapine Fumarate 100 mg 07/11/22 21:00 07/15/22 21:31 Quetiapine Fumarate 100 Mg Tablet PO Not Given QHS [facility] Radiology Results: ITS Impressions Abdomen/Pelvis CT 07/11/22 05:49 Impression: Gallbladder wall thickening and/or pericholecystic fluid are consistent with acute cholecystitis. Correlate clinically. Consider HIDA scan as indicated. Internal and external biliary dilatation, as detailed above. No definite obstructing mass identified. 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 Fibroid uterus, as above. Abdomen Ultrasound 07/12/22 15:02 IMPRESSION: Cholelithiasis, with gallbladder wall thickening and pericholecystic fluid as can be seen with acute cholecystitis. Intra and extrahepatic bile duct and pancreatic duct dilation, without identification of an obstructing bile duct stone or mass. Hepatobiliar
[2022-07-16] MEDS: ENOXAPARIN 40 MG/0.4 ML SYRINGE SUB-Q (11:35)
[2022-07-16 13:18] VITALS: BP 91/48; PULSE 58; RESP 16; TEMP 36.6; O2SAT 99
--- NOTE | 2022-07-16 15:31 | PM.IMPN ---
Progress Note: A&P Assessment and Plan (1) Moderate aortic valve stenosis: Code(s): I35.0 - Nonrheumatic aortic (valve) stenosis Status: Acute Assessment and Plan: Know history of heart murmur (2) Acute cholecystitis: Code(s): K81.0 - Acute cholecystitis Status: Acute Assessment and Plan: Presenting symptom. 19 K wBC count on admission with right upper quadrant abdominal pain. CT ultrasound and HIDA scan consistent with acute cholecystitis General surgery consulted Cardiology consulted for pre operative risk stratification given findings of elevated troponin EKG changes. Echo planned. Acceptable risk for the planned surgery per Cardiology Patient status post cholecystectomy 07/13/2022 (3) Anxiety and depression: Code(s): F41.9 - Anxiety disorder, unspecified; F32.A - Depression, unspecified Status: Acute Assessment and Plan: Pt takes seroquel, home medications (4) Dementia: Code(s): F03.90 - Unspecified dementia, unspecified severity, without behavioral disturbance, psychotic disturbance, mood disturbance, and anxiety Status: Chronic Assessment and Plan: Pt takes seroquel, mood is stable (5) Parkinsons disease: Code(s): G20 - Parkinson's disease Status: Chronic Assessment and Plan: Pt takes carbidopa and levodopa, Parkinsons is well controlled (6) Substernal chest pain: Code(s): R07.2 - Precordial pain Status: Acute Assessment and Plan: Ekg 07/12/[address]-T changes in inferior and lateral leads and low voltage Troponin ordered which was mildly elevated with flat trajectory. Echo ordered. with EF of more than 70% moderate aortic valve stenosis grade 1 diastolic dysfunction Cardiology consulted. Discussed with them. Troponin likely noncardiac likely due to her underlying acute cholecystitis Echo/ normal left ventricular size and mild concentric hypertrophy ejection fraction 77% grade 2 diastolic dysfunction. Moderate aortic valve stenosis mild pulmonary hypertension. Plan Continue postoperative care as ordered DVT prophylaxis Lovenox Subjective Date/time seen: 07/16/22 15:31 Interval history: Chart reviewed. Discussed with Cardiology. Presented with right upper quadrant abdominal pain. Point of care ultrasound revealed thickened gallbladder wall with pericholecystic fluid and gallstones in the gallbladder. Crockett sign positive consistent with acute cholecystitis. CT scan of the abdomen and pelvis showed inflammation of the gallbladder. WBC count 19 K on admission. General surgery was consulted. Mildly elevated troponin which remained flat. History of moderate aortic valve stenosis. Underlying dementia heart disease. Gallbladder ultrasound with cholelithiasis with gallbladder wall thickening and pericholecystic fluid has conversant with acute cholecystitis. Intra and extrahepatic bile duct and pancreatic duct dilatation without any occasion obstructive duct stone or mass. HIDA scan performed 07/12/2022 with no been activity in the gallbladder including 30 minutes post morphine administration which did consistent with acute cholecystitis. LFT on admission was normal. Troponin trend 0.083-0.07 3-0.060. Leukocytosis is resolved. Remains on IV Zosyn. 07/13/2022 seen after the surgery. Somnolent. Reports pain in the right upper quadrant. Drain in place. 07/14/22 postoperative day 1 patient does not verbalize much. Labs reviewed. Discussed with the nursing staff.. 07/15/2022: Postoperative day 2. Patient eating very little. Family at bedside. Labs reviewed. Soreness in the belly reported 07/16/2022: Postoperative day 3. More awake. Reports hurts in the surgical site. Denies nausea and vomiting. Eating little. needs to get up and work with therapy Review of Systems Review of Systems: All systems reviewed & are unremarkable except as noted in HPI and below Exam Narrative
[2022-07-16] MEDS: QUEtiapine FUMARATE 100 MG TABLET PO (20:34)
[2022-07-16] MEDS: HYDROcodone/acetaminophen (*CRX) 5-325 MG TABLET 1 TAB PO (20:34)
[2022-07-16 21:38] VITALS: BP 140/54; PULSE 56; RESP 20; TEMP 35.9; O2SAT 100
[2022-07-17] MEDS: PIPERACILLIN/TAZ 2.25G/NS 50ML 2.25 GM/50 ML BAG IVPB ×4 (03:11→20:44)
[2022-07-17 04:40] VITALS: BP 144/60; PULSE 58; RESP 18; TEMP 35.8; O2SAT 100
[2022-07-17] MEDS: CARBIDOPA/LEVODOPA 25/100 MG CR TABLET 2 TABLET PO (08:13)
[2022-07-17] MEDS: LETROZOLE (*CHEMO) 2.5 MG TABLET PO (08:13)
[2022-07-17] MEDS: POTASSIUM CHLORIDE 20 MEQ PACKET (FOR LIQUID) 40 MEQ PO (08:13)
[2022-07-17] MEDS: ENOXAPARIN 40 MG/0.4 ML SYRINGE SUB-Q (08:13)
[2022-07-17] MEDS: QUEtiapine FUMARATE 25 MG TABLET PO (08:14)
[2022-07-17] MEDS: MEMANTINE 10 MG TABLET PO (08:14)
--- NOTE | 2022-07-17 10:18 | PM.PNGS ---
Progress Note: A&P Assessment and Plan (1) Acute cholecystitis: Code(s): K81.0 - Acute cholecystitis Status: Acute Assessment and Plan: slowly improving, cont to encourage po and OOB, will ask PT/OT to see re: dc recs, plan to take KATHRINE out tomorrow and change to po abx, dc home soon? Subjective Subjective Date/Time Seen: 07/17/22 10:18 feels better today, still not getting around very well, eating a bit more Review of Systems Review of Systems: All systems reviewed & are unremarkable except as noted in HPI and below Exam Const: General: cooperative, comfortable, no acute distress and ill appearing GI: Inspection: normal to inspection, distended and incision GI Palp: Yes abdominal tenderness, Yes Soft to palpation, Yes Tenderness to palpation present (GI), No Guarding due to palpation present (GI) and No Rigid due to palpation Other: KATHRINE c s/s output Objective Data Vital Signs Vital Signs: Vital Signs - 24 hr 07/16/22 13:18 07/16/22 20:00 07/16/22 21:38 Temperature 36.6 C 35.9 C L Pulse Rate 58 L 56 L Respiratory Rate 16 20 Blood Pressure 91/48 L 140/54 L Pulse Oximetry 99 100 Oxygen Delivery Room Air 07/17/22 04:40 07/17/22 08:15 Temperature 35.8 C L Pulse Rate 58 L Respiratory Rate 18 Blood Pressure 144/60 H Pulse Oximetry 100 Oxygen Delivery Room Air Intake/Output Intake/Output: Intake & Output 07/14/22 07/15/22 07/16/22 07/17/22 23:59 23:59 23:59 23:59 Intake Total 737 909 5059 430 Output Total 664 1115 440 530 Balance -56 -915 860 -100 Meds/Results Medications: Active Medications Generic Name Dose Route Start Last Admin Trade Name Freq PRN Reason Stop Dose Admin Acetaminophen 650 mg 07/16/22 09:48 07/16/22 10:02 Acetaminophen 325 Mg Tablet PO 650 mg Q6H PRN Administration Mild Pain (1-3) or Fever Hydrocodone Bitart/Acetaminophen 1 tab 07/14/22 20:04 07/16/22 20:34 Hydrocodone/Acetaminophen (*Crx) 5-325 Mg Tablet PO 1 tab Q4H PRN Administration Pain Rated 4-6 Carbidopa/Levodopa 2 tablet 07/12/22 09:00 07/17/22 08:13 Carbidopa/Levodopa 25/100 Mg Cr Tablet PO 2 tablet DAILY CECI Administration Enoxaparin Sodium 40 mg 07/14/22 09:00 07/17/22 08:13 Enoxaparin 40 Mg/0.4 Ml Syringe SUB-Q 40 mg DAILY CECI Administration Fentanyl Citrate 25 mcg 07/13/22 18:13 07/14/22 17:46 Fentanyl Citrate Inj (*Crx) 100 Mcg/2 Ml Vial IV PUSH 25 mcg Q2H PRN Administration Pain Rated 7-10 Piperacillin Sod/Tazobactam Sod 2.25 gm in 50 mls @ 100 mls/hr 07/15/22 21:00 07/17/22 09:11 Zosyn 2.25 Gm/Ns 50 Ml IVPB Infused Q6H CECI Infusion Letrozole 2.5 mg 07/12/22 09:00 07/17/22 08:13 Letrozole (*Chemo) 2.5 Mg Tablet PO 2.5 mg DAILY CECI Administration Memantine 10 mg 07/12/22 09:00 07/17/22 08:14 Memantine 10 Mg Tablet PO 10 mg DAILY CECI Administration Potassium Chloride 40 meq 07/13/22 09:00 07/17/22 08:13 Potassium Chloride 20 Meq Packet (For Liquid) PO 40 meq DAILY CECI Administration Quetiapine Fumarate 25 mg 07/12/22 09:00 07/17/22 08:14 Quetiapine Fumarate 25 Mg Tablet PO 08/11/22 08:59 25 mg QAM CECI Administration Quetiapine Fumarate 100 mg 07/11/22 21:00 07/16/22 20:34 Quetiapine Fumarate 100 Mg Tablet PO 100 mg QHS CECI Administration Radiology Results: ITS Impressions Abdomen/Pelvis CT 07/11/22 05:49 Impression: Gallbladder wall thickening and/or pericholecystic fluid are consistent with acute cholecystitis. Correlate clinically. Consider HIDA scan as indicated. Internal and external biliary dilatation, as detailed above. No definite obstructing mass identified. 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 Fibroid uterus, as above. Abdomen Ultrasound 07/12/22 15:02 IMPRESSION: Cholelithiasis, with gallbladder wall thickening and pericholecystic fluid as can
[2022-07-17 14:00] VITALS: BP 139/73; PULSE 68; RESP 14; TEMP 36.2; O2SAT 95
--- NOTE | 2022-07-17 14:28 | PM.IMPN ---
Progress Note: A&P Assessment and Plan (1) Moderate aortic valve stenosis: Code(s): I35.0 - Nonrheumatic aortic (valve) stenosis Status: Acute Assessment and Plan: Know history of heart murmur (2) Acute cholecystitis: Code(s): K81.0 - Acute cholecystitis Status: Acute Assessment and Plan: Presenting symptom. 19 K wBC count on admission with right upper quadrant abdominal pain. CT ultrasound and HIDA scan consistent with acute cholecystitis General surgery consulted Cardiology consulted for pre operative risk stratification given findings of elevated troponin EKG changes. Echo planned. Acceptable risk for the planned surgery per Cardiology Patient status post cholecystectomy 07/13/2022 Continue postoperative care KATHRINE drain in place plans to remove in a.m. Continue IV antibiotics switched to oral Home when okay with General surgery (3) Anxiety and depression: Code(s): F41.9 - Anxiety disorder, unspecified; F32.A - Depression, unspecified Status: Acute Assessment and Plan: Pt takes seroquel, home medications (4) Dementia: Code(s): F03.90 - Unspecified dementia, unspecified severity, without behavioral disturbance, psychotic disturbance, mood disturbance, and anxiety Status: Chronic Assessment and Plan: Pt takes seroquel, mood is stable (5) Parkinsons disease: Code(s): G20 - Parkinson's disease Status: Chronic Assessment and Plan: Pt takes carbidopa and levodopa, Parkinsons is well controlled (6) Substernal chest pain: Code(s): R07.2 - Precordial pain Status: Acute Assessment and Plan: Ekg 07/12/[address]-T changes in inferior and lateral leads and low voltage Troponin ordered which was mildly elevated with flat trajectory. Echo ordered. with EF of more than 70% moderate aortic valve stenosis grade 1 diastolic dysfunction Cardiology consulted. Discussed with them. Troponin likely noncardiac likely due to her underlying acute cholecystitis Echo/ normal left ventricular size and mild concentric hypertrophy ejection fraction 77% grade 2 diastolic dysfunction. Moderate aortic valve stenosis mild pulmonary hypertension. Plan Continue postoperative care as ordered DVT prophylaxis Lovenox Subjective Date/time seen: 07/17/22 14:28 Interval history: Chart reviewed. Discussed with Cardiology. Presented with right upper quadrant abdominal pain. Point of care ultrasound revealed thickened gallbladder wall with pericholecystic fluid and gallstones in the gallbladder. Crockett sign positive consistent with acute cholecystitis. CT scan of the abdomen and pelvis showed inflammation of the gallbladder. WBC count 19 K on admission. General surgery was consulted. Mildly elevated troponin which remained flat. History of moderate aortic valve stenosis. Underlying dementia heart disease. Gallbladder ultrasound with cholelithiasis with gallbladder wall thickening and pericholecystic fluid has conversant with acute cholecystitis. Intra and extrahepatic bile duct and pancreatic duct dilatation without any occasion obstructive duct stone or mass. HIDA scan performed 07/12/2022 with no been activity in the gallbladder including 30 minutes post morphine administration which did consistent with acute cholecystitis. LFT on admission was normal. Troponin trend 0.083-0.07 3-0.060. Leukocytosis is resolved. Remains on IV Zosyn. 07/13/2022 seen after the surgery. Somnolent. Reports pain in the right upper quadrant. Drain in place. 07/14/22 postoperative day 1 patient does not verbalize much. Labs reviewed. Discussed with the nursing staff.. 07/15/2022: Postoperative day 2. Patient eating very little. Family at bedside. Labs reviewed. Soreness in the belly reported 07/16/2022: Postoperative day 3. More awake. Reports hurts in the surgical site. Denies nausea and vomiting. Eating little. needs to get up and
[2022-07-17] MEDS: HYDROcodone/acetaminophen (*CRX) 5-325 MG TABLET 1 TAB PO (20:44)
[2022-07-17] MEDS: QUEtiapine FUMARATE 100 MG TABLET PO (20:44)
[2022-07-17 23:00] VITALS: BP 120/59; PULSE 59; RESP 16; TEMP 35.9; O2SAT 98
[2022-07-18] MEDS: PIPERACILLIN/TAZ 2.25G/NS 50ML 2.25 GM/50 ML BAG IVPB ×3 (03:31→15:35)
[2022-07-18 03:41] VITALS: BP 141/41; PULSE 69; RESP 18; TEMP 36.3; O2SAT 99
[2022-07-18 06:25] LABS: Eosinophils Percent Auto 5.4 % (0-4.4); Hematocrit 30.1 % (37.0-47.0); Hemoglobin 9.4 g/dL (12.0-15.0); Immature Granulocyte Percent A 2.1 % (0-0.5); Lymphocytes Percent Auto 21.3 % (18.3-44.2); Mean Corpuscular HGB Conc 31.2 g/dl (32-36); Mean Corpuscular Hemoglobin 28.1 pg (26-34); Mean Corpuscular Volume 90.1 fl (80-100); Mean Platelet Volume 9.7 fl (7.4-10.4); Monocytes Percent Auto 7.4 % (2.6-8.5); Platelet Count Result 275 k/mm3 (150-375); Red Blood Count 3.34 M/mm3 (4.2-5.4); Red Cell Distribution Width 13.4 % (11.5-14.5); White Blood Count 7.3 K/mm3 (4.5-10.0)
[2022-07-18 06:26] LABS: Basophils Absolute Auto 0.1 K/mm3 (0.0-0.1); Basophils Percent Auto 0.8 % (0.2-1.2); Eosinophils Absolute Auto 0.4 K/mm3 (0-0.3); Immature Granulocyte Absolute 0.15 K/mm3 (0.00-0.031); Lymphocytes Absolute Auto 1.55 K/mm3 (0.9-3.2); Monocytes Absolute Auto 0.5 K/mm3 (0.1-0.6); Neutrophils Absolute Auto 4.6 K/mm3 (1.3-6.7)
[2022-07-18 06:35] LABS: Alanine Aminotransferase 14 U/L (6-35); Alkaline Phosphatase 64 U/L (38-126); Anion Gap 3 mmol/L (8-16); Aspartate Amino Transferase 27 U/L (14-36); Bilirubin,Total 0.4 mg/dL (0.2-1.3); Blood Urea Nitrogen 6 mg/dL (7-17); Calcium 8.2 mg/dL (8.4-10.2); Carbon Dioxide 27 mmol/L (22-30); Chloride 109 mmol/L (98-107); Estimated CRCL calculation 36 ml/min; Estimated Glomerular Filt Rate > 60; Glucose 88 mg/dL (65-110); Potassium 3.8 mmol/L (3.4-5.0); Sodium 139 mmol/L (137-145)
[2022-07-18] MEDS: POTASSIUM CHLORIDE 20 MEQ PACKET (FOR LIQUID) 40 MEQ PO (08:42)
[2022-07-18] MEDS: CARBIDOPA/LEVODOPA 25/100 MG CR TABLET 2 TABLET PO (08:42)
[2022-07-18] MEDS: QUEtiapine FUMARATE 25 MG TABLET PO (08:43)
[2022-07-18] MEDS: MEMANTINE 10 MG TABLET PO (08:43)
[2022-07-18] MEDS: ENOXAPARIN 40 MG/0.4 ML SYRINGE SUB-Q (08:43)
[2022-07-18] MEDS: LETROZOLE (*CHEMO) 2.5 MG TABLET PO (08:43)
--- NOTE | 2022-07-18 11:29 | PM.PNGS ---
Progress Note: A&P Assessment and Plan (1) Acute cholecystitis: Code(s): K81.0 - Acute cholecystitis Status: Acute Assessment and Plan: Continues to slowly improve. Will remove KATHRINE drain today. CC has set up home health for patient to return home with her daughter. Okay from our standpoint to discharge the patient today. Recommend switching to oral antibiotics on discharge to complete a 7-day course of post-op antibiotics, discussed with Hospitalist. Follow-up with Dr. Concepcion next week. Plan I have discussed the patient's case and plan of care with Dr. Gilbert. Subjective Subjective Date/Time Seen: 07/18/22 11:29 Post Op day: 5 (Laparoscopic cholecystectomy) Patient reports: afebrile Interval history: Patient seen today with no family at the bedside. Only complaint at this time is feeling cold. She denies any pain. Reportedly she is eating well without any issues. She refused breakfast this morning, but has eaten fairly well over the last two days. Denies nausea. No acute events overnight. KATHRINE drain mostly serous this morning. Review of Systems Review of Systems: ROS unobtainable: Yes unobtainable due to mental status (dementia) Exam Const: General: comfortable and no acute distress Orientation/consciousness: Other orientation findings (dementia, does not answer orientation questions) GI: Inspection: non-distended, incision (incisions dry and healing well, no erythema) and other (KATHRINE drain with scant serous drainage, gauze dressing dry and intact) GI Palp: Yes Soft to palpation, Yes Tenderness to palpation present (GI) (grimacing with palpation near incision), No Guarding due to palpation present (GI), No Hernia present and Yes Other GI palpation findings present (no diffuse peritoneal signs) Auscultation: normal bowel sounds Extrem: General: no edema Psych: Insight: Limited insight present (Psych) Judgement: Limited judgement present (Psych) Objective Data Vital Signs Vital Signs: Vital Signs - 24 hr 07/17/22 14:00 07/17/22 20:00 07/17/22 23:00 Temperature 97.1 F L 96.6 F L Pulse Rate 68 59 L Respiratory Rate 14 16 Blood Pressure 139/73 120/59 L Pulse Oximetry 95 98 Oxygen Delivery Room Air 07/18/22 03:41 Temperature 97.4 F L Pulse Rate 69 Respiratory Rate 18 Blood Pressure 141/41 H Pulse Oximetry 99 Oxygen Delivery Intake/Output Intake/Output: Intake & Output 07/15/22 07/16/22 07/17/22 07/18/22 23:59 23:59 23:59 23:59 Intake Total 200 1300 1020 300 Output Total 1115 440 545 15 Balance -915 860 697 285 Meds/Results Medications: Active Medications Generic Name Dose Route Start Last Admin Trade Name Freq PRN Reason Stop Dose Admin Acetaminophen 650 mg 07/16/22 09:48 07/16/22 10:02 Acetaminophen 325 Mg Tablet PO 650 mg Q6H PRN Administration Mild Pain (1-3) or Fever Hydrocodone Bitart/Acetaminophen 1 tab 07/14/22 20:04 07/17/22 20:44 Hydrocodone/Acetaminophen (*Crx) 5-325 Mg Tablet PO 1 tab Q4H PRN Administration Pain Rated 4-6 Carbidopa/Levodopa 2 tablet 07/12/22 09:00 07/18/22 08:42 Carbidopa/Levodopa 25/100 Mg Cr Tablet PO 2 tablet DAILY CECI Administration Enoxaparin Sodium 40 mg 07/14/22 09:00 07/18/22 08:43 Enoxaparin 40 Mg/0.4 Ml Syringe SUB-Q 40 mg DAILY CECI Administration Fentanyl Citrate 25 mcg 07/13/22 18:13 07/14/22 17:46 Fentanyl Citrate Inj (*Crx) 100 Mcg/2 Ml Vial IV PUSH 25 mcg Q2H PRN Administration Pain Rated 7-10 Piperacillin Sod/Tazobactam Sod 2.25 gm in 50 mls @ 100 mls/hr 07/15/22 21:00 07/18/22 09:13 Zosyn 2.25 Gm/Ns 50 Ml IVPB Infused Q6H CECI Infusion Letrozole 2.5 mg 07/12/22 09:00 07/18/22 08:43 Letrozole (*Chemo) 2.5 Mg Tablet PO 2.5 mg DAILY CECI Administration Memantine 10 mg 07/12/22 09:00 07/18/22 08:43 Memantine 10 Mg Tablet PO 10 mg DAILY CECI Administration Potassium Chloride 40 meq 07/13/22 09:00 07/18/22 08:42 Pota
[2022-07-18] MEDS: ACETAMINOPHEN 325 MG TABLET 650 MG PO (14:19)
[2022-07-18 14:52] VITALS: BP 119/58; PULSE 65; RESP 18; TEMP 36.8; O2SAT 99
--- NOTE | 2022-07-18 15:48 | PM.IMPN ---
Progress Note: A&P Assessment and Plan (1) Moderate aortic valve stenosis: Code(s): I35.0 - Nonrheumatic aortic (valve) stenosis Status: Acute Assessment and Plan: Know history of heart murmur (2) Acute cholecystitis: Code(s): K81.0 - Acute cholecystitis Status: Acute Assessment and Plan: Presenting symptom. 19 K wBC count on admission with right upper quadrant abdominal pain. CT ultrasound and HIDA scan consistent with acute cholecystitis General surgery consulted Cardiology consulted for pre operative risk stratification given findings of elevated troponin EKG changes. Echo planned. Acceptable risk for the planned surgery per Cardiology Patient status post cholecystectomy 07/13/2022 Continue postoperative care KATHRINE drain in place. Removed by General surgery today Continue IV antibiotics switched to oral Okay for home per General surgery (3) Anxiety and depression: Code(s): F41.9 - Anxiety disorder, unspecified; F32.A - Depression, unspecified Status: Acute Assessment and Plan: Pt takes seroquel, home medications (4) Dementia: Code(s): F03.90 - Unspecified dementia, unspecified severity, without behavioral disturbance, psychotic disturbance, mood disturbance, and anxiety Status: Chronic Assessment and Plan: Pt takes seroquel, mood is stable (5) Parkinsons disease: Code(s): G20 - Parkinson's disease Status: Chronic Assessment and Plan: Pt takes carbidopa and levodopa, Parkinsons is well controlled (6) Substernal chest pain: Code(s): R07.2 - Precordial pain Status: Acute Assessment and Plan: Ekg 07/12/[address]-T changes in inferior and lateral leads and low voltage Troponin ordered which was mildly elevated with flat trajectory. Echo ordered. with EF of more than 70% moderate aortic valve stenosis grade 1 diastolic dysfunction Cardiology consulted. Discussed with them. Troponin likely noncardiac likely due to her underlying acute cholecystitis Echo/ normal left ventricular size and mild concentric hypertrophy ejection fraction 77% grade 2 diastolic dysfunction. Moderate aortic valve stenosis mild pulmonary hypertension. Plan Continue postoperative care as ordered DVT prophylaxis Lovenox Subjective Date/time seen: 07/18/22 15:48 Interval history: Chart reviewed. Discussed with Cardiology. Presented with right upper quadrant abdominal pain. Point of care ultrasound revealed thickened gallbladder wall with pericholecystic fluid and gallstones in the gallbladder. Crockett sign positive consistent with acute cholecystitis. CT scan of the abdomen and pelvis showed inflammation of the gallbladder. WBC count 19 K on admission. General surgery was consulted. Mildly elevated troponin which remained flat. History of moderate aortic valve stenosis. Underlying dementia heart disease. Gallbladder ultrasound with cholelithiasis with gallbladder wall thickening and pericholecystic fluid has conversant with acute cholecystitis. Intra and extrahepatic bile duct and pancreatic duct dilatation without any occasion obstructive duct stone or mass. HIDA scan performed 07/12/2022 with no been activity in the gallbladder including 30 minutes post morphine administration which did consistent with acute cholecystitis. LFT on admission was normal. Troponin trend 0.083-0.07 3-0.060. Leukocytosis is resolved. Remains on IV Zosyn. 07/13/2022 seen after the surgery. Somnolent. Reports pain in the right upper quadrant. Drain in place. 07/14/22 postoperative day 1 patient does not verbalize much. Labs reviewed. Discussed with the nursing staff.. 07/15/2022: Postoperative day 2. Patient eating very little. Family at bedside. Labs reviewed. Soreness in the belly reported 07/16/2022: Postoperative day 3. More awake. Reports hurts in the surgical site. Denies nausea and vomiting. Eating little. needs to get
[2022-07-18] MEDS: QUEtiapine FUMARATE 100 MG TABLET PO (20:08)
[2022-07-18] MEDS: AMOXICILLIN/CLAVULANATE K 875-125 MG TAB 1 TABLET PO (20:08)
[2022-07-18 22:00] VITALS: BP 128/58; PULSE 58; RESP 18; TEMP 35.5; O2SAT 100
[2022-07-19 06:00] VITALS: BP 120/79; PULSE 69; RESP 18; TEMP 36.1; O2SAT 100
[2022-07-19 06:41] LABS: Basophils Absolute Auto 0.1 K/mm3 (0.0-0.1); Basophils Percent Auto 0.6 % (0.2-1.2); Eosinophils Absolute Auto 0.5 K/mm3 (0-0.3); Eosinophils Percent Auto 4.2 % (0-4.4); Hematocrit 32.7 % (37.0-47.0); Hemoglobin 10.1 g/dL (12.0-15.0); Immature Granulocyte Absolute 0.24 K/mm3 (0.00-0.031); Immature Granulocyte Percent A 2.2 % (0-0.5); Lymphocytes Absolute Auto 2.25 K/mm3 (0.9-3.2); Lymphocytes Percent Auto 20.7 % (18.3-44.2); Mean Corpuscular HGB Conc 30.9 g/dl (32-36); Mean Corpuscular Volume 90.6 fl (80-100); Mean Platelet Volume 9.6 fl (7.4-10.4); Monocytes Absolute Auto 0.7 K/mm3 (0.1-0.6); Monocytes Percent Auto 6.1 % (2.6-8.5); Neutrophils Absolute Auto 7.2 K/mm3 (1.3-6.7); Neutrophils Percent Auto 66.2 % (45.5-73.1); Platelet Count Result 309 k/mm3 (150-375); Red Blood Count 3.61 M/mm3 (4.2-5.4); Red Cell Distribution Width 13.5 % (11.5-14.5); White Blood Count 10.9 K/mm3 (4.5-10.0)
[2022-07-19 06:49] LABS: Alanine Aminotransferase 17 U/L (6-35); Albumin Level 3.5 g/dL (3.5-5.1); Alkaline Phosphatase 83 U/L (38-126); Anion Gap 4 mmol/L (8-16); Aspartate Amino Transferase 44 U/L (14-36); Bilirubin,Total 0.4 mg/dL (0.2-1.3); Blood Urea Nitrogen 6 mg/dL (7-17); Calcium 8.8 mg/dL (8.4-10.2); Carbon Dioxide 26 mmol/L (22-30); Chloride 108 mmol/L (98-107); Estimated CRCL calculation 41 ml/min; Estimated Glomerular Filt Rate > 60; Glucose 92 mg/dL (65-110); Magnesium 2.1 mg/dL (1.6-2.3); Potassium 3.9 mmol/L (3.4-5.0); Sodium 138 mmol/L (137-145)
[2022-07-19] MEDS: ACETAMINOPHEN 325 MG TABLET 650 MG PO (08:31)
[2022-07-19] MEDS: CARBIDOPA/LEVODOPA 25/100 MG CR TABLET 2 TABLET PO (08:32)
[2022-07-19] MEDS: LETROZOLE (*CHEMO) 2.5 MG TABLET PO (08:32)
[2022-07-19] MEDS: ENOXAPARIN 40 MG/0.4 ML SYRINGE SUB-Q (08:32)
[2022-07-19] MEDS: MEMANTINE 10 MG TABLET PO (08:32)
[2022-07-19] MEDS: AMOXICILLIN/CLAVULANATE K 875-125 MG TAB 1 TABLET PO (08:32)
[2022-07-19] MEDS: QUEtiapine FUMARATE 25 MG TABLET PO (08:32)
[2022-07-19] MEDS: POTASSIUM CHLORIDE 20 MEQ PACKET (FOR LIQUID) 40 MEQ PO (08:33)
--- NOTE | 2022-07-19 14:52 | PM.DS ---
DS: Admitting Diagnosis Discharge Date 07/19/2022 Admitting Diagnosis abdominal pain DS: Discharge Diagnosis Discharge Diagnosis (1) Moderate aortic valve stenosis: Code(s): I35.0 - Nonrheumatic aortic (valve) stenosis Status: Acute (2) Acute cholecystitis: Code(s): K81.0 - Acute cholecystitis Status: Acute (3) Anxiety and depression: Code(s): F41.9 - Anxiety disorder, unspecified; F32.A - Depression, unspecified Status: Acute (4) Dementia: Code(s): F03.90 - Unspecified dementia, unspecified severity, without behavioral disturbance, psychotic disturbance, mood disturbance, and anxiety Status: Chronic (5) Parkinsons disease: Code(s): G20 - Parkinson's disease Status: Chronic (6) Substernal chest pain: Code(s): R07.2 - Precordial pain Status: Acute DS: Summary Hospital Course Hospital Course: (1) Moderate aortic valve stenosis: ?Code(s): I35.0 - Nonrheumatic aortic (valve) stenosis ?Status:?Acute ?Assessment and Plan: Know history of heart murmur # Acute cholecystitis: Presenting symptom.? 19 K wBC count on admission with right upper quadrant abdominal pain.? CT ultrasound and HIDA scan consistent with acute cholecystitis General surgery consulted Cardiology consulted for pre operative risk stratification given findings of elevated troponin EKG changes.? Echo planned.? Acceptable risk for the planned surgery per Cardiology Patient status post cholecystectomy 07/13/2022 Continue postoperative care KATHRINE drain in place.? Removed by General surgery S 07/18/2022 Continue IV antibiotics switched to oral. Continue for total 7 days postoperatively Okay for home per General surgery. Home health arranged at discharge # moderate aortic valve stenosis: known history of heart murmur # Anxiety and depression: Pt takes seroquel, home medications # Dementia: Pt takes seroquel, mood is stable # Parkinsons disease: Pt takes carbidopa and levodopa,? Parkinsons is well controlled # Substernal chest pain: Ekg 07/12/[address]-T changes in inferior and lateral leads and low voltage Troponin ordered which was mildly elevated with flat trajectory.? Echo ordered. ? with EF of more than 70% moderate aortic valve stenosis grade 1 diastolic dysfunction Cardiology consulted.? Discussed with them. Troponin likely noncardiac likely due to her underlying acute cholecystitis Echo/ normal left ventricular size and mild concentric hypertrophy ejection fraction 77% grade 2 diastolic dysfunction.? Moderate aortic valve stenosis mild pulmonary hypertension. # DVT prophylaxis Lovenox Time Spent with Patient Time attestation: Total time spent providing and/or coordinating discharge services: 40 minutes Exam Narrative: ? APPEARANCE: No apparent distress. Sitting on the chair Head: atraumatic. Normocephalic EYES:? EOMI, NOSE: Atraumatic RESPIRATORY: No increased rate of breathing diminished breath sound bilaterally CARDIOVASCULAR: RRR, ABDOMINAL: Tender to palpation in the right upper quadrant,? Bowel sounds present. MUSCULOSKELETAl: No obvious deformities NEURO: Alert. more communicative Moving 4/4 extremities SKIN:: Warm, dry. Normal color PSYCHIATRIC: Normal affect DS: Data Data Completed and Pending Completed studies during hospitalization: Pending at discharge 07/13/22 15:54 Surgical [PTH] Routine Labs on day of discharge: Labs from last 24 hours 07/19/22 07/19/22 05:54 05:54 WBC 10.9 H RBC 3.61 L Hgb 10.1 L Hct 32.7 L MCV 90.6 MCH 28.0 MCHC 30.9 L RDW 13.5 Plt Count 309 MPV 9.6 Immature Gran % (Auto) 2.2 H Neut % (Auto) 66.2 Lymph % (Auto) 20.7 [place] % (Auto) 6.1 Eos % (Auto) 4.2 Baso % (Auto) 0.6 Lymph # (Auto) 2.25 [place] # (Auto) 0.7 H Eos # (Auto) 0.5 H Baso # (Auto) 0.1 Abs Immat Gran (auto) 0.24 H Absolute Neuts (auto) 7.2 H Absolute Nucleated RBC
== END 2022-07-19 15:50 | disposition home health service (06) | DRG 418 ==
LOC: ANHED 07-11 03:38 → ANH3MEDSUR 07-11 05:10
PROVIDERS: Family Medicine; Nurse Practitioner Family; Surgery; Admitting Provider Internal Medicine; Emergency Provider Emergency Medicine; PCP Family Medicine; Visit Provider Internal Medicine
PROC: 0FT44ZZ Resection of Gallbladder, Percutaneous Endoscopic Approach (ICD-10-PCS; CPT 47562; principal; 2022-07-13 15:00)
DX: K80.12 Calculus of gallbladder with acute and chronic cholecystitis without obstruction (principal); K82.1 Hydrops of gallbladder; F41.9 Anxiety disorder, unspecified; F32.A Depression, unspecified; I35.0 Nonrheumatic aortic (valve) stenosis; G20 Parkinson's disease; F02.80 Dementia in other diseases classified elsewhere, unspecified severity, without behavioral disturbance, psychotic disturbance, mood disturbance, and anxiety; I10 Essential (primary) hypertension; Z20.822 Contact with and (suspected) exposure to COVID-19; Z86.73 Personal history of transient ischemic attack (TIA), and cerebral infarction without residual deficits; Z79.899 Other long term (current) drug therapy
CPT/HCPCS: 36415; 74177; 76705; 78227; 80048; 80053; 80076; 81001; 83690; 83735; 84484; 85025; 85027; 85055; 86850; 86900; 86901; 88304; 93005; 93306; 96361; 96365; 96366; 96375; 96376; 97110; 97161; 97165; 97530; 97535; 99285; A9270; A9537; C1713; G0378; J1650; J2270; J2543; J2704; J3010; J3480; J7030; J7040; J7120; Q9967

== ENCOUNTER 2022-07-27 16:05 | Inpatient (IN) | payer MEDICARE, SELFPAY ==
[2022-07-27] VITALS (40 sets, daily range): BP systolic 87–167; BP diastolic 57–111; PULSE 67–96; RESP 15–20; TEMP 37.2; O2SAT 97–100
--- NOTE | ~2022-07-27 | CT_ITS ---
EXAMINATION: CT abdomen pelvis w con DATE: 07/30/2022 17:59 INDICATION: abdominal pain, elevated lipase r/o pancreatitis TECHNIQUE: Computed tomography (CT) of the abdomen and pelvis was performed with 100 mL Omnipaque-350 intravenous contrast. Automated exposure control and iterative reconstruction technique were employe d. The dose-length product was 272.15 mGy-cm. COMPARISON: 07/27/2022. FINDINGS: Lower thorax: Aortic valve, mitral, and coronary artery calcification. Atelectasis/scar along bases. Unchanged pericardial fluid. Liver: Simple right lobe cyst near the dome. Biliary/Gallbladder: Gallbladder is absent. Intra and extra hepatic bile duct dilation, stable. Pancreas: No mass. Stable duct dilation. Spleen: Normal. Adrenals:No mass. Kidneys: Bilateral cortical thinning GI tract: Moderate distal esophageal and gastric wall edema. Moderate sized duodenal diverticulum. No small or large bowel dilation. Normal appendix. Mesentery/Peritoneum: No ascites, mass, or free air. Retroperitoneum: No mass. Atherosclerotic abdominal aortic and/or arterial calcifications. Pelvis: Urinary bladder within normal limits. Calcified uterine fibroid. Redemonstration of the posts urgical ureteral change versus urethral diverticulum. Soft Tissues: Soft tissues and body wall unremarkable. Bones: No acute osseous finding. IMPRESSION: Moderate esophagitis/gastritis. No CT findings of acute pancreatitis. No other acute abdominopelvic p rocess detected. Reviewed, dictated and finalized at location K. IMPRESSION: Moderate esophagitis/gastritis. No CT findings of acute pancreatitis. No other acute abdominopelvic process detected.
--- NOTE | ~2022-07-27 | CT_ITS ---
EXAMINATION: CTA chest PE abdomen pel DATE: 07/27/2022 19:55 INDICATION: CP, SOB, upper abd pain, decreased appetite TECHNIQUE: Computed tomography angiography (CTA) of the chest was performed with 100 mL Omnipaque-350 intravenous contrast timed to evaluate the pulmonary arteries, followed by portal venous phase imagi ng of the abdomen and pelvis. Coronal maximum intensity projection 3D-reconstructions were created by the technologist. The dose-length product (DLP) was 542.51 mGy-cm. Automated exposure control and it erative reconstruction technique were employed. COMPARISON: CT abdomen and pelvis 07/11/2022. FINDINGS: CHEST: Mild respiratory motion in the chest. Lung parenchyma and airways: Senescent changes. Bibasilar scar/atelectasis. Pleura: Unremarkable. Thoracic inlet, axillae and chest wall: Unremarkable. Thoracic aorta: Mild arch calcification. Ascending aortic ectasia. Mediastinum: Normal. Heart and pericardium: Normal heart size. Moderate volume pericardial fluid. Coronary artery calcifications: Mild. Thoracic bones: No acute osseous finding. Pulmonary arteries: Study quality: Adequate. No pulmonary emboli detected. ABDOMEN/PELVIS: Moderate respiratory motion affecting the upper abdomen, with beam hardening from arm positioning. Liver: Simple left lobe cyst near the dome. Biliary/Gallbladder: Gallbladder is absent. Stable intra and extrahepatic bile duct dilation. Pancreas: Stable pancreatic duct dilation. Spleen: Normal. Adrenals:No mass. Kidneys: No mass, stone, or hydronephrosis. GI tract: Mild distal esophageal and gastric wall edema. Stable duodenal diverticulum. Uniform bowel wall enhancement. No small or large bowel dilation. Appendix not visualized. Mesentery/Peritoneum: No ascites, mass, or free air. Retroperitoneum: No mass. Atherosclerotic abdominal aortic and/or arterial calcifications. Pelvis: Normal urinary bladder. Fibroid uterus. Redemonstration of the circular or U-shaped low-densi ty with peripheral calcifications at the base of the bladder which may represent a urethral diverticu lum with calcifications or possibly postsurgical change that has been urethral surgery. Soft Tissues: Soft tissues and body wall unremarkable. Abdominopelvic bones: No acute osseous finding. IMPRESSION: No CT evidence of acute pulmonary embolus. Moderate pericardial effusion. Motion limited examination of the abdomen/pelvis, particularly in the upper abdomen. Mild esophagitis/gastritis, otherwise no ac [place] abdominopelvic process detected. Reviewed, dictated and finalized at location K. IMPRESSION: No CT evidence of acute pulmonary embolus. Moderate pericardial effusion. Motio n limited examination of the abdomen/pelvis, particularly in the upper abdomen. Mild esophagitis/gastritis, otherwise no acute abdominopelvic process detected .
--- NOTE | 2022-07-27 16:15 | ED.CHESTPAIN ---
HPI - Chest Pain General Chief Complaint: Chest Pain <ROBIN Hess Filed: 07/27/22 20:08> Stated Complaint: post op complications <ROBIN Hess Last Filed: 07/27/22 20:08> Time Seen by Provider: 07/27/22 16:06 <ROBIN Hess Last Filed: 07/27/22 20:08> Source: patient, family and old records reviewed <ROBIN Hess Last Filed: 07/27/22 20:08> Mode of arrival: EMS <ROBIN Hess Filed: 07/27/22 20:08> Limitations: dementia <ROBIN Hess Last Filed: 07/27/22 20:08> History of Present Illness HPI narrative: Patient is an 82 y/o female who presents to the ED via EMS with c/o SOB. Patient has a history of dementia and is a poor historian. Per previous records, patient had a laparoscopic cholecystectomy performed on 07/[address] Concepcion. She was discharged from the hospital on 07/19. Daughter at bedside reports patient has had a decreased appetite since then and not wanting to eat or drink much at home. Today, patient reports she developed chest pain and shortness of breath. She states she was unable to catch her breath. The home health nurse was present at this time and recommended that they come to the ED for further evaluation. EMS was called. Daughter reports that patient seemed to be holding her upper abdomen and complaining of pain, not her chest. Patient states all symptoms are improved currently. Daughter denies any nausea or vomiting, fevers. <ROBIN Hess Last Filed: 07/27/22 20:08> Related Data Home Medications: Home Medications Medication Instructions Recorded Confirmed letrozole 2.5 mg tablet 2.5 mg PO DAILY 01/18/20 07/11/22 memantine 10 mg tablet 10 mg PO DAILY 01/18/20 07/11/22 quetiapine 100 mg tablet (Seroquel) 100 mg PO QHS 04/05/22 07/11/22 Seroquel 25 mg PO QAM 07/11/22 07/11/22 <Ibeth Trivedi PA-C - Last Filed: 07/27/22 20:08> Allergies/Adverse Reactions: Allergies Allergy/AdvReac Type Severity Reaction Status Date / Time haloperidol Allergy Severe Difficulty Verified 07/10/22 20:14 Breathing <Ibeth Trivedi PA-C - Last Filed: 07/27/22 20:08> Review of Systems Review of Systems: CONSTITUTIONAL: Denies fever, chills, or sweats. CARDIOVASCULAR: See HPI. RESPIRATORY: See HPI. GASTROINTESTINAL: See HPI. <Ibeth Trivedi PA-C - Last Filed: 07/27/22 20:08> All systems reviewed & are unremarkable except as noted in HPI and below <Ibeth Trivedi PA-C - Last Filed: 07/27/22 20:08> [facility] Past Medical History Medical History: Medical History Anxiety and depression Breast cancer Cerebrovascular accident Dementia Hypertension Parkinsons disease <Ibeth Trivedi PA-C - Last Filed: 07/27/22 20:08> Surgical History Surgical History: Surgical History History of cholecystectomy History of lumpectomy <Ibeth Trivedi PA-C - Last Filed: 07/27/22 20:08> Family History Family History: Family History Other Hypertension <Ibeth Trivedi PA-C - Last Filed: 07/27/22 20:08> Social History Social History: Social History Social History: Surrogate medical decision maker: Leigh Maldonado, daughter. Code status: Full code. Smoking status: Never smoker Alcohol intake: never Substance use: never Substance use type: does not use Additional living arrangements comments: Originally from the [facility]. She has 4 children. Lives with daughter Leigh. 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 Spiritual care concerns: No <Ibeth Trivedi PA-C -
--- NOTE | 2022-07-27 16:28 | ECG_ITS ---
Measurements Intervals [place] Rate: 70 P: 48 MA: 154 QRS: -6 QRSD: 89 T: 33 QT: 412 QTc: 445 Interpretive Statements SINUS RHYTHM PROBABLE OLD INFERIOR INFARCT NONSPECIFIC ST AND T WAVE ABNORMALITY COMPARED TO ECG 07/12/2022 10:24:52 NO SIGNIFICANT CHANGES Electronically Signed On 07-28-2022 10:36:13 CDT by Liyah Hodge M.D.
[2022-07-27 17:22] LABS: Alanine Aminotransferase 10 U/L (6-35); Alkaline Phosphatase 105 U/L (38-126); Anion Gap 10 mmol/L (8-16); Aspartate Amino Transferase 27 U/L (14-36); Bilirubin,Total 0.6 mg/dL (0.2-1.3); Blood Urea Nitrogen 12 mg/dL (7-17); Calcium 9.2 mg/dL (8.4-10.2); Carbon Dioxide 28 mmol/L (22-30); Chloride 104 mmol/L (98-107); Estimated Glomerular Filt Rate > 60; Glucose 114 mg/dL (65-110); Lipase 329 U/L (23-300); Potassium 3.9 mmol/L (3.4-5.0); Sodium 142 mmol/L (137-145)
[2022-07-27 17:32] LABS: Troponin I < 0.012 ng/mL (0.000-0.034)
[2022-07-27 17:54] LABS: Basophils Absolute Auto 0.1 K/mm3 (0.0-0.1); Basophils Percent Auto 0.6 % (0.2-1.2); Eosinophils Absolute Auto 0.2 K/mm3 (0-0.3); Eosinophils Percent Auto 1.5 % (0-4.4); Hematocrit 36.4 % (37.0-47.0); Hemoglobin 11.3 g/dL (12.0-15.0); Immature Granulocyte Absolute 0.09 K/mm3 (0.00-0.031); Immature Granulocyte Percent A 0.9 % (0-0.5); Lymphocytes Absolute Auto 2.75 K/mm3 (0.9-3.2); Lymphocytes Percent Auto 27.9 % (18.3-44.2); Mean Corpuscular Hemoglobin 28.1 pg (26-34); Mean Corpuscular Volume 90.5 fl (80-100); Mean Platelet Volume 9.2 fl (7.4-10.4); Monocytes Percent Auto 10.5 % (2.6-8.5); Neutrophils Absolute Auto 5.8 K/mm3 (1.3-6.7); Neutrophils Percent Auto 58.6 % (45.5-73.1); Platelet Count Result 318 k/mm3 (150-375); Red Blood Count 4.02 M/mm3 (4.2-5.4); Red Cell Distribution Width 13.5 % (11.5-14.5); White Blood Count 9.9 K/mm3 (4.5-10.0)
--- NOTE | 2022-07-27 19:33 | PC.NURSE ---
CT notified of IV placement
[2022-07-27 20:52] LABS: Appearance Urine Clear (Clear); Bacteria Urine None Seen /hpf; Bilirubin Urine Negative (Negative); Blood Urine Negative (Negative); Color Urine Yellow (Yellow); Glucose Urine UA Negative (Negative); Hyaline Casts Urine Present /lpf; Ketones Urine Trace mg/dL (Negative); Leukocyte Esterase Ur Trace LEU/UL (Negative); Nitrate Urine Negative (Negative); Non Pathogenic Casts 0-2; Protein Urine Trace mg/dL (Negative); Squamous Epithelial Cell Urine None seen /hpf (Few)
[2022-07-27 20:53] LABS: Add Urine Microscopic? YES; Specific Grav Ur 1.043 (1.001-1.035)
[2022-07-27 20:53] LABS: Troponin I < 0.012 ng/mL (0.000-0.034)
--- NOTE | 2022-07-27 21:18 | PC.NURSE ---
Pt's daughter Leigh left ED. Phone number is [phone].
--- NOTE | 2022-07-27 22:29 | PC.NURSE ---
Pt is tolerating drinking water. No nausea or vomiting.
--- NOTE | 2022-07-27 23:01 | PM.IMHP ---
H&P: HPI History of Present Illness Date/Time: 07/27/22 23:01 Chief Complaint: Chest pain Narrative: This is an 82-year-old female with past medical history significant for Parkinson's disease, dementia, patient is a half-way resident. Was brought to the emergency room for evaluation of chest pain. Patient is unable to give any history she is oriented only to self. Preliminary workup was significant for CT of chest abdomen and pelvis was found to have moderate pericardial effusion. FINDINGS:? CHEST: Mild respiratory motion in the chest. Lung parenchyma and airways: Senescent changes. Bibasilar scar/atelectasis. Pleura: Unremarkable. Thoracic inlet, axillae and chest wall: Unremarkable. Thoracic aorta: Mild arch calcification. Ascending aortic ectasia. Mediastinum: Normal. Heart and pericardium: Normal heart size. Moderate volume pericardial fluid. Coronary artery calcifications: Mild. Thoracic bones: No acute osseous finding. Pulmonary arteries: Study quality: Adequate. No pulmonary emboli detected. ABDOMEN/PELVIS: Moderate respiratory motion affecting the upper abdomen, with beam hardening from arm positioning. Liver: Simple left lobe cyst near the dome.? Biliary/Gallbladder: Gallbladder is absent. Stable intra and extrahepatic bile duct dilation. Pancreas: Stable pancreatic duct dilation. Spleen: Normal. Adrenals:No mass. Kidneys: No mass, stone, or hydronephrosis. GI tract: Mild distal esophageal and gastric wall edema. Stable duodenal diverticulum. Uniform bowel wall enhancement. No small or large bowel dilation. Appendix not visualized. Mesentery/Peritoneum: No ascites, mass, or free air. Retroperitoneum: No mass. Atherosclerotic abdominal aortic and/or arterial calcifications. Pelvis: Normal urinary bladder. Fibroid uterus. Redemonstration of the circular or U-shaped low-density with peripheral calcifications at the base of the bladder which may represent a urethral diverticulum with calcifications or possibly postsurgical change that has been urethral surgery. Soft Tissues: Soft tissues and body wall unremarkable. Abdominopelvic bones:? No acute osseous finding. IMPRESSION: No CT evidence of acute pulmonary embolus. Moderate pericardial effusion. Motion limited examination of the abdomen/pelvis, particularly in the upper abdomen. Mild esophagitis/gastritis, otherwise no acute abdominopelvic process detected. Patient is been admitted for further evaluation management and treatment. Review of Systems Review of Systems: ROS unobtainable: Yes unobtainable due to mental status (Dementia) PMFSH Past Medical History Medical History Anxiety and depression Breast cancer Cerebrovascular accident Dementia Hypertension Parkinsons disease Surgical History Surgical History History of cholecystectomy History of lumpectomy Family History Family History (Updated 07/28/22 @ 01:21 by Ivory Chong RN) Other Glaucoma Hypertension Social History Social History Social History: Surrogate medical decision maker: Leigh Maldonado, daughter. Code status: Full code. Smoking status: Never smoker Alcohol intake: never Substance use: never Substance use type: does not use Additional living arrangements comments: Originally from the [facility]. She has 4 children. Lives with daughter Leigh. 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 Spiritual care concerns: No Meds Home Medications and Allergies Home Medications Medication Instructions Recorded Confirmed Type letrozole 2.5 mg tablet 2.5 mg PO DAILY 01/18/20 07/28/22 History memantine 10 mg tablet 10 mg PO DAILY 01/18/20 07/28/22 History quetiapine 100 mg tablet (Seroquel) 100 mg PO QHS 04/05
[2022-07-28] VITALS (11 sets, daily range): BP systolic 89–143; BP diastolic 43–90; PULSE 57–77; RESP 17–18; TEMP 36.4–36.8; O2SAT 98–100; BMI 17.9
--- NOTE | 2022-07-28 | ECHOL_ITS ---
Patient Info Name: Debbie Trejo Age: 82 years : 1940 Gender: Female Ht: 61 in Wt: 94 lbs BSA: 1.35 m2 HR: 61 bpm BP: 135 / 53 mmHg Heart Rhythm: Sinus Rhythm Exam Date: 07/28/2022 11:40 AM Exam Location: [facility] Pulmonary Patient Status: Outpatient Admit Date: 07/27/2022 Staff Ordering Physician: Irene Cadena MD Carton Making Machinist: Fahad Crockett, KARCS, RT Attending Provider: Irene Cadena MD Referring Physician: Tammi HERRERA; Exam Type: CA echo limited Study Info Indications - Pericardial effusion Limited two-dimensional transthoracic echocardiogram is performed. Summary 1. Limited study done for evaluation of pericardial effusion. 2. Left ventricular systolic function is normal, estimated at 65-70%. 3. The mitral valve annulus is severely calcified. 4. The mitral valve has normal leaflets and calcified leaflets. 5. There is small circumferential pericardial effusion. Left Ventricle Left ventricular chamber dimension is normal. Left ventricular systolic function is normal, estimated at 65-70%. Left Atria Left atrial chamber dimension is normal. Right Atria Right atrial chamber dimension is not well visualized. Mitral Valve The mitral valve has normal leaflets and calcified leaflets. The mitral valve annulus is severely calcified. Pericardium/Pleural There is small circumferential pericardial effusion. Inferior Vena Cava Normal inferior vena cava with >50% collapse upon inspiration consistent with normal right atrial pressure, 3 mmHg. Tricuspid Valve Name Value Normal Estimated PAP/RSVP RA Pressure 3 mmHg <=5 Report Signatures
--- NOTE | 2022-07-28 00:49 | ADMGEN ---
This patient, Debbie Trejo, was admitted to 2 Medical Room 257-01. Patient/family oriented to hospital policies and general routines including ID bracelet, bed and alarms, visiting hours, pain management, procedures, bathroom and other care routines, personal items, smoking policy, room service/diet, and visiting hours. Information on how to activate the Rapid Response Team has been discussed. Patient/Family are encouraged to report perceived risks to care and to ask questions if they do not understand what they are told or what they should do.
[2022-07-28] MEDS: LETROZOLE (*CHEMO) 2.5 MG TABLET PO (08:17)
[2022-07-28] MEDS: polyethylene glycoL 3350 17 GM POWD.PACK PO (08:17)
[2022-07-28] MEDS: QUEtiapine FUMARATE 25 MG TABLET PO (08:18)
[2022-07-28] MEDS: MEMANTINE 10 MG TABLET PO (08:18)
[2022-07-28] MEDS: CARBIDOPA/LEVODOPA 25/100 MG CR TABLET 2 TABLET PO (08:18)
--- NOTE | 2022-07-28 09:06 | PM.IMPN ---
Progress Note: A&P Assessment and Plan (1) Effusion, pericardium: Code(s): I31.39 - Other pericardial effusion (noninflammatory) Status: Acute Assessment and Plan: Moderate pericardial effusion suggested on CT scan. Echocardiogram limited ordered and shows small pericardial effusion. Discussed with Cardiology and this is unchanged from previous TTE. Patient is denying chest pain at this time, no signs of tamponade, consulted cardiology TSH and procalcitonin within normal limits. CRP 1.9 and may be elevated from previous surgery versus UTI. Scheduled Ibuprofen 600 mg PO Q8 hours and colchicine 0.6 mg PO BID stopped due to unlikely pericarditis per Cardiology Troponin negative x3. (2) Chest pain: Qualifiers: Chest pain type: unspecified Qualified Code(s): R07.9 - Chest pain, unspecified Code(s): R07.9 - Chest pain, unspecified Status: Acute Assessment and Plan: Reported on admission. Patient denies at this time. Troponin negative x3. CT chest, abd, pelvis suggested moderate pericardial effusion, mild esophagitis/gastritis and negative for PE. Esophagitis/gastritis suggested on CT. Continue H2 karla. Lipase mildly elevated on admission and will repeat in am. (3) Acute UTI: Code(s): N39.0 - Urinary tract infection, site not specified Status: Acute Assessment and Plan: UA with trace leukocytes, WBC 6-10 and no epi cells or bacteria. No suprapubic tenderness or urinary complaints on exam. Rocephin 1 gram given in ED. Given patient is asymptomatic on exam will stop antibiotics and monitor patient. Blood and urine cultures pending. (4) Parkinsons disease: Code(s): G20 - Parkinson's disease Status: Chronic Assessment and Plan: Continue carbidopa-levodopa at home dose (5) Dementia: Code(s): F03.90 - Unspecified dementia, unspecified severity, without behavioral disturbance, psychotic disturbance, mood disturbance, and anxiety Status: Chronic Assessment and Plan: Continue memantine and seroquel. Supportive care Plan CODE STATUS: FULL CODE Disposition: From home and lives with daughter. PT/OT ordered. GI prophylaxis: Famotidine PO BID Time Spent With Patient Time: 40 minutes time spent with patient assessment, patient education, consultation with specialist provider, review of labs, vitals and nursing documentation. All questions answered to the best of my ability. Subjective Date/time seen: 07/28/22 09:06 She denies chest pain, SOB, palpitations, appetite changes, abdominal pain, N/V, or dysuria. Her daughter reports the patient c/o stomach pain, chest pain and shortness of breath to the home health nurse, which prompted her to come to the ED. She has had a poor appetite for the past few days, malaise and some loose stool since having her gallbladder at the end of June. Review of Systems Review of Systems: All systems reviewed & are unremarkable except as noted in HPI and below Exam Narrative: General: No acute distress.? Frail older adult female lying in bed. Neuro/Psych: Sleeping, arouses to voice. Follows commands. clear speech. Pleasant and cooperative. Neutral mood and affect. No focal deficits. Skin: fair, warm, and dry. Maceration to sacrum noted with blanching erythema. 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 HEENT: Normocephalic. Sclera is non-icteric. Pupils equal and round. Oral mucosa pink and moist. Neck: No JVD. Heart: S1 and S2 regular rate and rhythm. 2/6 systolic murmur RSB. No gallops or rubs auscultated. Chest: Respirations even and unlabored. Lung sounds are clear to auscultation without wheezes, rhonchi, or rales. Abdomen: Soft, round, non-distended and non-tender to palpation.? Bowel sounds present in all 4 quadrants. No guarding, suprapubic tenderness. Extremities:? No edema, erythema or calf tenderness. Generalized weakness. Objective Data Vital
[2022-07-28 09:40] LABS: Basophils Absolute Auto 0.1 K/mm3 (0.0-0.1); Basophils Percent Auto 0.8 % (0.2-1.2); Eosinophils Absolute Auto 0.1 K/mm3 (0-0.3); Eosinophils Percent Auto 0.8 % (0-4.4); Hematocrit 33.9 % (37.0-47.0); Hemoglobin 10.5 g/dL (12.0-15.0); Immature Granulocyte Absolute 0.03 K/mm3 (0.00-0.031); Immature Granulocyte Percent A 0.4 % (0-0.5); Lymphocytes Absolute Auto 1.16 K/mm3 (0.9-3.2); Lymphocytes Percent Auto 15.4 % (18.3-44.2); Mean Corpuscular Hemoglobin 27.9 pg (26-34); Mean Corpuscular Volume 89.9 fl (80-100); Mean Platelet Volume 9.5 fl (7.4-10.4); Monocytes Absolute Auto 0.5 K/mm3 (0.1-0.6); Neutrophils Absolute Auto 5.7 K/mm3 (1.3-6.7); Neutrophils Percent Auto 75.6 % (45.5-73.1); Platelet Count Result 310 k/mm3 (150-375); Red Blood Count 3.77 M/mm3 (4.2-5.4); Red Cell Distribution Width 13.5 % (11.5-14.5); White Blood Count 7.5 K/mm3 (4.5-10.0)
[2022-07-28 10:01] LABS: CRP 1.9 mg/dL (<1.0)
[2022-07-28 10:06] LABS: Anion Gap 9 mmol/L (8-16); Blood Urea Nitrogen 9 mg/dL (7-17); Calcium 9.3 mg/dL (8.4-10.2); Carbon Dioxide 26 mmol/L (22-30); Chloride 105 mmol/L (98-107); Estimated CRCL calculation 41 ml/min; Estimated Glomerular Filt Rate > 60; Glucose 155 mg/dL (65-110); Potassium 3.5 mmol/L (3.4-5.0); Sodium 140 mmol/L (137-145)
[2022-07-28 10:11] LABS: NT Pro B Type Natriuretic Pept 1350 pg/mL (19.9-100); Troponin I 0.013 ng/mL (0.000-0.034)
[2022-07-28 10:25] LABS: Procalcitonin 0.1 ng/mL
--- NOTE | 2022-07-28 14:49 | PM.CNCAR ---
Assessment and Plan Assessment and plan (1) Effusion, pericardium: Code(s): I31.39 - Other pericardial effusion (noninflammatory) Status: Acute Assessment and Plan: Echocardiogram done this admission which shows a trivial-small circumferential effusion. LVEF remains normal. I reviewed her images compared to her prior echocardiogram, and the effusion is unchanged. She has no clinical evidence of tamponade. TSH was checked and is normal. History does not seem to suggest pericarditis, therefore, would discontinue Colchicine and Ibuprofen. At this time, no further cardiac evaluation or workup recommended at this time. Please call us back if needed. History of Present Illness History of Present Illness Consult date/time: 07/28/22 14:49 Requesting physician: Irene Cadena MD Consult reason: Other (Pericardial effusion) Reason For Visit: Pericardial effusion Narrative: We are consulted for pericardial effusion. This is an 82-year-old female known to me from her last admission. She has a history of Parkinson's dementia, hypertension who was admitted in June for acute cholecystitis and underwent laparoscopic cholecystectomy. Patient is a very poor historian and difficult to elicit history from as well. There appears to be a language barrier as well. No family at bedside upon my evaluation. History also obtained from the medical records and her medical team. Patient has been having a poor appetite for the past few days, some loose stools. Complained of epigastric abdominal pain, chest pain and shortness of breath to her home health nurse. Upon my evaluation, she denies chest pain or shortness of breath. CT C/A/P done which showed moderate pericardial effusion, mild esophagitis/gastritis. Troponins are negative. BNP is mildly elevated, but patient is not clinically in heart failure. Review of Systems Review of Systems: Limited ROS obtained due to patient's mental status. As noted in HPI. [facility] Past Medical History Medical History Anxiety and depression Breast cancer Cerebrovascular accident Dementia Hypertension Parkinsons disease Surgical History Surgical History History of cholecystectomy History of lumpectomy Family History Family History Other Glaucoma Hypertension Social History Social History Social History: Surrogate medical decision maker: Leigh Maldonado, daughter. Code status: Full code. Smoking status: Never smoker Alcohol intake: never Substance use: never Substance use type: does not use Additional living arrangements comments: Originally from the [facility]. She has 4 children. Lives with daughter Leigh. 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 Spiritual care concerns: No Meds Home Medications and Allergies Home Medications Medication Instructions Recorded Confirmed Type letrozole 2.5 mg tablet 2.5 mg PO DAILY 01/18/20 07/28/22 History memantine 10 mg tablet 10 mg PO DAILY 01/18/20 07/28/22 History quetiapine 100 mg tablet (Seroquel) 100 mg PO QHS 04/05/22 07/28/22 History polyethylene glycol 3350 17 gram 17 g PO QAM #30 ea 04/08/22 07/28/22 Rx oral powder packet (Miralax) sennosides 8.6 mg-docusate sodium 1 tab-cap PO DAILY PRN 04/08/22 07/28/22 Rx 50 mg tablet (Senokot-S) Constipation #30 tabs carbidopa ER 50 mg-levodopa 200 mg 50 - 200 tablet PO DAILY #90 tabs 06/10/22 07/28/22 Rx tablet,extended release Seroquel 25 mg PO QAM 07/11/22 07/28/22 History Allergies Allergy/AdvReac Type Severity Reaction Status Date / Time haloperidol Allergy Severe Difficulty Verified 07/10/22 20:14 Breathing Vital Signs Vital Signs - 24 hr 07/27/22 16:11
[2022-07-28] MEDS: QUEtiapine FUMARATE 100 MG TABLET PO (20:07)
[2022-07-28] MEDS: FAMOTIDINE 20 MG TABLET PO (20:07)
[2022-07-29] VITALS (7 sets, daily range): BP systolic 98–121; BP diastolic 52–59; PULSE 50–58; RESP 16–18; TEMP 36.3–36.7; O2SAT 98–100
[2022-07-29 05:58] LABS: Basophils Absolute Auto 0.1 K/mm3 (0.0-0.1); Basophils Percent Auto 1.1 % (0.2-1.2); Eosinophils Absolute Auto 0.2 K/mm3 (0-0.3); Eosinophils Percent Auto 3.4 % (0-4.4); Hematocrit 32.3 % (37.0-47.0); Hemoglobin 10.1 g/dL (12.0-15.0); Immature Granulocyte Absolute 0.06 K/mm3 (0.00-0.031); Immature Granulocyte Percent A 0.9 % (0-0.5); Lymphocytes Absolute Auto 1.91 K/mm3 (0.9-3.2); Lymphocytes Percent Auto 27.1 % (18.3-44.2); Mean Corpuscular HGB Conc 31.3 g/dl (32-36); Mean Corpuscular Hemoglobin 27.7 pg (26-34); Mean Corpuscular Volume 88.5 fl (80-100); Mean Platelet Volume 9.5 fl (7.4-10.4); Monocytes Absolute Auto 0.8 K/mm3 (0.1-0.6); Monocytes Percent Auto 10.7 % (2.6-8.5); Neutrophils Percent Auto 56.8 % (45.5-73.1); Platelet Count Result 285 k/mm3 (150-375); Red Blood Count 3.65 M/mm3 (4.2-5.4); Red Cell Distribution Width 13.5 % (11.5-14.5)
[2022-07-29 06:05] LABS: Anion Gap 6 mmol/L (8-16); Blood Urea Nitrogen 11 mg/dL (7-17); Calcium 8.7 mg/dL (8.4-10.2); Carbon Dioxide 31 mmol/L (22-30); Chloride 105 mmol/L (98-107); Estimated CRCL calculation 36 ml/min; Estimated Glomerular Filt Rate > 60; Glucose 98 mg/dL (65-110); Lipase 399 U/L (23-300); Potassium 3.8 mmol/L (3.4-5.0); Sodium 142 mmol/L (137-145)
[2022-07-29] MEDS: QUEtiapine FUMARATE 25 MG TABLET PO (08:34)
[2022-07-29] MEDS: LETROZOLE (*CHEMO) 2.5 MG TABLET PO (08:34)
[2022-07-29] MEDS: MEMANTINE 10 MG TABLET PO (08:34)
[2022-07-29] MEDS: FAMOTIDINE 20 MG TABLET PO (08:34)
[2022-07-29] MEDS: CARBIDOPA/LEVODOPA 25/100 MG CR TABLET 2 TABLET PO (08:34)
[2022-07-29] MEDS: polyethylene glycoL 3350 17 GM POWD.PACK PO (08:34)
--- NOTE | 2022-07-29 11:44 | PC.NURSE ---
On 07/29/22, the student, [Radha Michaud], provided care and completed [facility] documentation on this patient. I have reviewed the student's documentation and agree with the findings.
[2022-07-29] MEDS: BELLADONNA ALK/PHENOB ELIX 10 ML, MAG HYDROX/ALUMINUM HYD/SIMETH 30 ML, LIDOCAINE HCL 2... PO (13:24)
[2022-07-29] MEDS: BISACODYL 5 MG TABLET EC PO (13:31)
--- NOTE | 2022-07-29 15:34 | PM.IMPN ---
Progress Note: A&P Assessment and Plan (1) Effusion, pericardium: Code(s): I31.39 - Other pericardial effusion (noninflammatory) Status: Chronic Assessment and Plan: Moderate pericardial effusion suggested on CT scan. Echocardiogram limited ordered and shows small pericardial effusion. Discussed with Cardiology and this is unchanged from previous TTE. Patient is denying chest pain at this time, no signs of tamponade, consulted cardiology TSH and procalcitonin within normal limits. CRP 1.9 and may be elevated from previous surgery versus UTI. Scheduled Ibuprofen 600 mg PO Q8 hours and colchicine 0.6 mg PO BID stopped due to unlikely pericarditis per Cardiology Troponin negative x3. Stable (2) Chest pain: Qualifiers: Chest pain type: unspecified Qualified Code(s): R07.9 - Chest pain, unspecified Code(s): R07.9 - Chest pain, unspecified Status: Acute Assessment and Plan: Reported on admission. Patient denies at this time. Does not appear cardiac in nature. Troponin negative x3. CT chest, abd, pelvis suggested moderate pericardial effusion, mild esophagitis/gastritis and negative for PE. Esophagitis/gastritis suggested on CT. Continue H2 karla. Lipase and amylase mildly elevated. CT abd with stable pancreatic duct dilation. No pancreatitis noted. Unclear significant. check lipid panel Give GI cocktail x1. Stop famotidine. add protonix 40 mg IV BID. consider repeat CT abd/pelvis if pain persists. [place] diet. (3) Acute UTI: Code(s): N39.0 - Urinary tract infection, site not specified Status: Ruled-out Assessment and Plan: Asymptomatic bacteruria. UA with trace leukocytes, WBC 6-10 and no epi cells or bacteria. No suprapubic tenderness or urinary complaints on exam. Rocephin 1 gram given in ED. Given patient is asymptomatic on exam stopped antibiotics and monitor patient. Blood and urine cultures without growth to date. (4) Parkinsons disease: Code(s): G20 - Parkinson's disease Status: Chronic Assessment and Plan: Continue carbidopa-levodopa at home dose (5) Dementia: Code(s): F03.90 - Unspecified dementia, unspecified severity, without behavioral disturbance, psychotic disturbance, mood disturbance, and anxiety Status: Chronic Assessment and Plan: Continue memantine and seroquel. Supportive care Plan CODE STATUS: FULL CODE Disposition: From home and lives with daughter. PT/OT ordered. GI prophylaxis: Protonix BID Time Spent With Patient Time with patient: 25 - 35 minutes Subjective Date/time seen: 07/29/22 15:34 Interval history: She is complaining of stomach discomfort when lying down that is worse at night. She also states that she has not had a bowel movement for 1 week. No chest pain, nausea or emesis. Review of Systems Review of Systems: All systems reviewed & are unremarkable except as noted in HPI and below Exam Narrative: General: No acute distress.? Frail older adult female lying in bed. Neuro/Psych: Sleeping, arouses to voice. Follows commands. clear speech. Pleasant and cooperative. Neutral mood and affect. No focal deficits. Skin: fair, warm, and dry. sacrum not assessed. 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 HEENT: Normocephalic. Sclera is non-icteric. Pupils equal and round. Oral mucosa pink and moist. Neck: No JVD. Heart: S1 and S2 regular rate and rhythm. 2/6 systolic murmur RSB. No gallops or rubs auscultated. Chest: Respirations even and unlabored. Lung sounds are clear to auscultation without wheezes, rhonchi, or rales. Abdomen: Soft, round, non-distended and tender to palpation epigastric region.? Bowel sounds present in all 4 quadrants. No guarding, suprapubic tenderness. Extremities:? No edema, erythema or calf tenderness. Generalized weakness. Objective Data Vital Signs Vital Signs: Vital Signs - 24 hr 07/28/22 16:00 07/28/22 20:00
--- NOTE | 2022-07-29 16:04 | PCOTNOTE ---
Attempted to see pt. for occupational therapy evaluation. Pt. difficult to arouse and shook head no when repeatedly asked to participate in out of bed activity. Following.
[2022-07-29 16:22] LABS: Amylase 126 U/L (30-110)
[2022-07-29] MEDS: LACTATED RINGERS 1,000 ML 100 ML IV CONT (17:20)
--- NOTE | 2022-07-29 21:02 | PC.NURSE ---
pt was very combative. refused medications. attempted to scratch and hit the race and sports book writer as well as PCT during perineal hygiene. this RN was able to apply the prescribed cream to the buttocks; however, unable to convince pt to take her medications. pt was yelling out : leave me alone, I want to sleep, it's not medicine, it's poison .
[2022-07-30 03:50] VITALS: BP 154/62; PULSE 67; RESP 20; TEMP 36.9; O2SAT 99
[2022-07-30 06:01] LABS: Basophils Absolute Auto 0.1 K/mm3 (0.0-0.1); Basophils Percent Auto 0.7 % (0.2-1.2); Eosinophils Absolute Auto 0.2 K/mm3 (0-0.3); Hematocrit 35.4 % (37.0-47.0); Hemoglobin 10.8 g/dL (12.0-15.0); Immature Granulocyte Absolute 0.09 K/mm3 (0.00-0.031); Immature Granulocyte Percent A 0.8 % (0-0.5); Lymphocytes Absolute Auto 3.68 K/mm3 (0.9-3.2); Lymphocytes Percent Auto 32.6 % (18.3-44.2); Mean Corpuscular HGB Conc 30.5 g/dl (32-36); Mean Corpuscular Hemoglobin 27.2 pg (26-34); Mean Corpuscular Volume 89.2 fl (80-100); Mean Platelet Volume 9.9 fl (7.4-10.4); Monocytes Absolute Auto 0.9 K/mm3 (0.1-0.6); Monocytes Percent Auto 7.7 % (2.6-8.5); Neutrophils Absolute Auto 6.3 K/mm3 (1.3-6.7); Neutrophils Percent Auto 56.2 % (45.5-73.1); Platelet Count Result 310 k/mm3 (150-375); Red Blood Count 3.97 M/mm3 (4.2-5.4); Red Cell Distribution Width 13.4 % (11.5-14.5); White Blood Count 11.3 K/mm3 (4.5-10.0)
[2022-07-30 06:09] LABS: Alanine Aminotransferase 18 U/L (6-35); Alkaline Phosphatase 100 U/L (38-126); Anion Gap 7 mmol/L (8-16); Aspartate Amino Transferase 32 U/L (14-36); Bilirubin,Total 0.6 mg/dL (0.2-1.3); Blood Urea Nitrogen 11 mg/dL (7-17); Calcium 9.2 mg/dL (8.4-10.2); Carbon Dioxide 32 mmol/L (22-30); Chloride 104 mmol/L (98-107); Cholesterol 200 mg/dL (0-200); Estimated CRCL calculation 31 ml/min; Estimated Glomerular Filt Rate > 60; Glucose 102 mg/dL (65-110); HDL Direct 33 mg/dL; Lipase 531 U/L (23-300); Potassium 4.4 mmol/L (3.4-5.0); Sodium 143 mmol/L (137-145); Triglycerides 161 mg/dL (<150)
[2022-07-30 06:20] LABS: LDL Cholesterol Direct 110 mg/dL
[2022-07-30] MEDS: CARBIDOPA/LEVODOPA 25/100 MG CR TABLET 2 TABLET PO (08:14)
[2022-07-30] MEDS: LETROZOLE (*CHEMO) 2.5 MG TABLET PO (08:14)
[2022-07-30] MEDS: QUEtiapine FUMARATE 25 MG TABLET PO (08:15)
[2022-07-30] MEDS: polyethylene glycoL 3350 17 GM POWD.PACK PO (08:15)
[2022-07-30] MEDS: PANTOPRAZOLE 40 MG TABLET PO (08:15)
[2022-07-30] MEDS: MEMANTINE 10 MG TABLET PO (08:15)
--- NOTE | 2022-07-30 08:36 | PM.IMPN ---
Progress Note: A&P Assessment and Plan (1) Abdominal pain: Code(s): R10.9 - Unspecified abdominal pain Status: Acute Assessment and Plan: CT chest, abd, pelvis suggested moderate pericardial effusion, mild esophagitis/gastritis and negative for PE. Esophagitis/gastritis suggested on CT. Continue H2 karla. Lipase and amylase mildly elevated; lipase is trending up. CT abd with stable pancreatic duct dilation. No pancreatitis noted on 07/27. Unclear significant. lipid panel - triglycerides 161 and not significantly elevated. Give GI cocktail x1. Stop famotidine. add protonix 40 mg IV BID. 07/[address] abd/pelvis today. WBC 11.[address]rend [address]ase[address] NPO for CT and continue LR@100 mL/hour. (2) Effusion, pericardium: Code(s): I31.39 - Other pericardial effusion (noninflammatory) Status: Chronic Assessment and Plan: Moderate pericardial effusion suggested on CT scan. Echocardiogram limited ordered and shows small pericardial effusion. Discussed with Cardiology and this is unchanged from previous TTE. Patient is denying chest pain at this time, no signs of tamponade, consulted cardiology TSH and procalcitonin within normal limits. CRP 1.9 and may be elevated from previous surgery versus UTI. Scheduled Ibuprofen 600 mg PO Q8 hours and colchicine 0.6 mg PO BID stopped due to unlikely pericarditis per Cardiology Troponin negative x3. Stable (3) Chest pain: Qualifiers: Chest pain type: unspecified Qualified Code(s): R07.9 - Chest pain, unspecified Code(s): R07.9 - Chest pain, unspecified Status: Acute Assessment and Plan: Reported on admission. Patient denies at this time. Does not appear cardiac in nature. Troponin negative x3. CT chest, abd, pelvis suggested moderate pericardial effusion, mild esophagitis/gastritis and negative for PE. Esophagitis/gastritis suggested on CT. Continue H2 karla. Lipase and amylase mildly elevated. CT abd with stable pancreatic duct dilation. No pancreatitis noted. Unclear significant. check lipid panel Give GI cocktail x1. Stop famotidine. add protonix 40 mg IV BID. consider repeat CT abd/pelvis if pain persists. [place] diet. (4) Acute UTI: Code(s): N39.0 - Urinary tract infection, site not specified Status: Ruled-out Assessment and Plan: Asymptomatic bacteruria. UA with trace leukocytes, WBC 6-10 and no epi cells or bacteria. No suprapubic tenderness or urinary complaints on exam. Rocephin 1 gram given in ED. Given patient is asymptomatic on exam stopped antibiotics and monitor patient. Blood and urine cultures without growth to date. (5) Parkinsons disease: Code(s): G20 - Parkinson's disease Status: Chronic Assessment and Plan: Continue carbidopa-levodopa at home dose (6) Dementia: Code(s): F03.90 - Unspecified dementia, unspecified severity, without behavioral disturbance, psychotic disturbance, mood disturbance, and anxiety Status: Chronic Assessment and Plan: Continue memantine and seroquel. Supportive care 07/30 Patient lethargic hold morning seroquel. Plan CODE STATUS: FULL CODE Disposition: From home and lives with daughter. PT/OT ordered. GI prophylaxis: Protonix BID Time Spent With Patient Time with patient: 25 - 35 minutes Subjective Date/time seen: 07/30/22 08:36 Interval history: Patient found lying in bed sleeping. Her daughter reports she has been sleeping most of the time the past few days and has been active at home prior to admission. Patient denies complaints at this time, however, when prompted she endorses some abdominal pain. Her daughter reports her appetite is still low and she has not heard the patient c/o abd pain after eating. GI cocktail given yesterday without improvement. Review of Systems Review of Systems: All systems reviewed & are unremarkable except as noted in HPI and below Exam Narrative: General: No acute dis
--- NOTE | 2022-07-30 11:28 | PC.NURSE ---
Spoke with hospitalist. Unable to achieve venous access. Pt has upcoming CT. Ok to call [facility] for [facility].
[2022-07-30 13:25] VITALS: BP 120/58; PULSE 60; RESP 18; TEMP 37; O2SAT 97
--- NOTE | 2022-07-30 15:50 | PCOTNOTE ---
Attempted to see pt. for occupational therapy evaluation. Pt. currently getting midline placed and is unable to participate at this time. Nursing aware.
[2022-07-30 20:00] VITALS: PULSE 71; RESP 21; O2SAT 100
[2022-07-30 22:00] VITALS: BP 116/89; PULSE 71; RESP 21; TEMP 36.2; O2SAT 100
[2022-07-31] MEDS: LACTATED RINGERS 1,000 ML 100 ML IV CONT ×3 (00:09→20:56)
[2022-07-31 06:00] VITALS: BP 109/72; PULSE 65; RESP 21; TEMP 36.1; O2SAT 100
[2022-07-31 08:32] LABS: Glucose Point of Care 83 mg/dl (65-105)
[2022-07-31] MEDS: polyethylene glycoL 3350 17 GM POWD.PACK PO (10:26)
[2022-07-31] MEDS: LETROZOLE (*CHEMO) 2.5 MG TABLET PO (10:26)
[2022-07-31] MEDS: CARBIDOPA/LEVODOPA 25/100 MG CR TABLET 2 TABLET PO (10:26)
[2022-07-31] MEDS: PANTOPRAZOLE 40 MG TABLET PO ×2 (10:26→20:55)
[2022-07-31] MEDS: MEMANTINE 10 MG TABLET PO (10:26)
[2022-07-31 10:58] LABS: Alanine Aminotransferase 21 U/L (6-35); Albumin Level 3.7 g/dL (3.5-5.1); Alkaline Phosphatase 82 U/L (38-126); Anion Gap 10 mmol/L (8-16); Aspartate Amino Transferase 44 U/L (14-36); Bilirubin,Total 0.7 mg/dL (0.2-1.3); Blood Urea Nitrogen 7 mg/dL (7-17); Calcium 8.9 mg/dL (8.4-10.2); Carbon Dioxide 20 mmol/L (22-30); Chloride 106 mmol/L (98-107); Estimated CRCL calculation 41 ml/min; Estimated Glomerular Filt Rate > 60; Glucose 178 mg/dL (65-110); Lipase 627 U/L (23-300); Potassium 3.8 mmol/L (3.4-5.0); Sodium 136 mmol/L (137-145)
[2022-07-31 11:41] LABS: Glucose Point of Care 148 mg/dl (65-105)
--- NOTE | 2022-07-31 12:05 | PM.IMPN ---
Progress Note: A&P Assessment and Plan (1) Abdominal pain: Code(s): R10.9 - Unspecified abdominal pain Status: Acute Assessment and Plan: CT chest, abd, pelvis suggested moderate pericardial effusion, mild esophagitis/gastritis and negative for PE. Esophagitis/gastritis suggested on CT. Continue H2 karla. Lipase and amylase mildly elevated; lipase continues to trend up, no >600. 07/27 CT abd with stable pancreatic duct dilation. No pancreatitis noted. lipid panel - triglycerides 161 and not significantly elevated. Give GI cocktail x1. started on protonix 40 mg BID. 07/[address] abd/pelvis with moderate esophageal/gastric wall edema and moderate duodenal diverticulum and no evidence of pancreatitis. Unclear significance of elevated lipase, but given that it continues to rise and patient has intermittent c/o abd pain, will consult GI and order MRCP (2) Effusion, pericardium: Code(s): I31.39 - Other pericardial effusion (noninflammatory) Status: Chronic Assessment and Plan: Moderate pericardial effusion suggested on CT scan. Echocardiogram limited ordered and shows small pericardial effusion. Discussed with Cardiology and this is unchanged from previous TTE. Patient is denying chest pain at this time, no signs of tamponade, consulted cardiology TSH and procalcitonin within normal limits. CRP 1.9 and may be elevated from previous surgery versus UTI. Scheduled Ibuprofen 600 mg PO Q8 hours and colchicine 0.6 mg PO BID stopped due to unlikely pericarditis per Cardiology Troponin negative x3. Stable, unlikely cause of symptoms. (3) Chest pain: Qualifiers: Chest pain type: unspecified Qualified Code(s): R07.9 - Chest pain, unspecified Code(s): R07.9 - Chest pain, unspecified Status: Acute Assessment and Plan: Reported on admission. Patient denies at this time. Does not appear cardiac in nature. Troponin negative x3. Likely secondary to GI source. (4) Acute UTI: Code(s): N39.0 - Urinary tract infection, site not specified Status: Ruled-out Assessment and Plan: Asymptomatic bacteruria. UA with trace leukocytes, WBC 6-10 and no epi cells or bacteria. No suprapubic tenderness or urinary complaints on exam. Rocephin 1 gram given in ED. Given patient is asymptomatic on exam stopped antibiotics and monitor patient. Blood and urine cultures without growth to date. (5) Parkinsons disease: Code(s): G20 - Parkinson's disease Status: Chronic Assessment and Plan: Continue carbidopa-levodopa at home dose (6) Dementia: Code(s): F03.90 - Unspecified dementia, unspecified severity, without behavioral disturbance, psychotic disturbance, mood disturbance, and anxiety Status: Chronic Assessment and Plan: Continue memantine and seroquel. Supportive care 07/30 Patient lethargic hold morning seroquel. Plan CODE STATUS: FULL CODE Disposition: From home. Plan to return home with daughter and home health. GI prophylaxis: Protonix BID Time Spent With Patient Time: All questions answered. Plan of care discussed with the patient and her daughter. Time with patient: 25 - 35 minutes Subjective Date/time seen: 07/31/22 12:05 Patient found lying in bed and reports feeling tired today. Her daughter reports the patient walked in the halls with physical therapy this morning and has stated she is hungry. She denies c/o abdominal pain, nausea or emesis. She had a BM this morning. No chest pain or SOB. Review of Systems Review of Systems: All systems reviewed & are unremarkable except as noted in HPI and below Exam Narrative: General: No acute distress.? Frail older adult female lying in bed. Neuro/Psych: Sleeping, arouses to voice. Follows commands. clear speech. Pleasant and cooperative. Neutral mood and affect. No focal deficits. Skin: fair, warm, and dry. sacrum not assessed. Lap site
[2022-07-31 13:44] VITALS: BP 132/50; PULSE 77; RESP 14; TEMP 36.8; O2SAT 98
[2022-07-31 13:44] LABS: Basophils Absolute Auto 0.1 K/mm3 (0.0-0.1); Basophils Percent Auto 0.6 % (0.2-1.2); Eosinophils Absolute Auto 0.1 K/mm3 (0-0.3); Hematocrit 32.8 % (37.0-47.0); Hemoglobin 10.2 g/dL (12.0-15.0); Immature Granulocyte Absolute 0.06 K/mm3 (0.00-0.031); Immature Granulocyte Percent A 0.7 % (0-0.5); Lymphocytes Absolute Auto 1.18 K/mm3 (0.9-3.2); Lymphocytes Percent Auto 14.4 % (18.3-44.2); Mean Corpuscular HGB Conc 31.1 g/dl (32-36); Mean Corpuscular Hemoglobin 27.8 pg (26-34); Mean Corpuscular Volume 89.4 fl (80-100); Mean Platelet Volume 9.8 fl (7.4-10.4); Monocytes Absolute Auto 0.4 K/mm3 (0.1-0.6); Monocytes Percent Auto 4.5 % (2.6-8.5); Neutrophils Absolute Auto 6.5 K/mm3 (1.3-6.7); Neutrophils Percent Auto 78.8 % (45.5-73.1); Platelet Count Result 266 k/mm3 (150-375); Red Blood Count 3.67 M/mm3 (4.2-5.4); Red Cell Distribution Width 13.4 % (11.5-14.5); White Blood Count 8.2 K/mm3 (4.5-10.0)
[2022-07-31 20:00] VITALS: PULSE 67; RESP 19; O2SAT 99
[2022-07-31] MEDS: QUEtiapine FUMARATE 100 MG TABLET PO (20:55)
[2022-07-31 20:57] VITALS: BP 150/64; PULSE 67; RESP 19; TEMP 36.9; O2SAT 99
[2022-08-01 06:00] VITALS: BP 150/67; PULSE 60; RESP 18; TEMP 36.9; O2SAT 100
[2022-08-01] MEDS: LACTATED RINGERS 1,000 ML 100 ML IV CONT ×2 (07:38→17:10)
[2022-08-01] MEDS: CARBIDOPA/LEVODOPA 25/100 MG CR TABLET 2 TABLET PO (09:21)
[2022-08-01] MEDS: LETROZOLE (*CHEMO) 2.5 MG TABLET PO (09:22)
[2022-08-01] MEDS: PANTOPRAZOLE 40 MG TABLET PO (09:22)
[2022-08-01 09:23] VITALS: RESP 18; O2SAT 100
[2022-08-01] MEDS: MEMANTINE 10 MG TABLET PO (09:23)
--- NOTE | 2022-08-01 12:56 | P.PNIM_ITS ---
Progress Note: A&P Assessment and Plan (1) Abdominal pain: Code(s): R10.9 - Unspecified abdominal pain Status: Acute Assessment and Plan: Patient presented to ED on 07/27/22 due to abdominal pain and lack of appetite. CT chest, abd, pelvis suggested moderate pericardial effusion, mild esophagitis/gastritis and negative for PE. * Esophagitis/gastritis suggested on CT. Continue H2 karla. * Lipase and amylase mildly elevated; lipase continues to trend up, no >600. * 07/27 CT abd with stable pancreatic duct dilation. No pancreatitis noted. * lipid panel - triglycerides 161 and not significantly elevated. * Give GI cocktail x1. started on protonix 40 mg BID. * 07/[address] abd/pelvis with moderate esophageal/gastric wall edema and moderate duodenal diverticulum and no evidence of pancreatitis. * Unclear significance of elevated lipase, but given that it continues to rise and patient has intermittent c/o abd pain, will consult GI and order MRCP * 08/01 Patient unable to complete MRCP due to pt unable to sit still. GI has seen patient and advised diet advancement. Lipase is under 1000 and there is no acute concern. Will start Protonix due to gastritis. (2) Effusion, pericardium: Code(s): I31.39 - Other pericardial effusion (noninflammatory) Status: Chronic Assessment and Plan: * Moderate pericardial effusion suggested on CT scan. * Echocardiogram limited ordered and shows small pericardial effusion. Discussed with Cardiology and this is unchanged from previous TTE. * Patient is denying chest pain at this time, no signs of tamponade, * consulted cardiology * TSH and procalcitonin within normal limits. CRP 1.9 and may be elevated from previous surgery versus UTI. * Scheduled Ibuprofen 600 mg PO Q8 hours and colchicine 0.6 mg PO BID stopped due to unlikely pericarditis per Cardiology * Troponin negative x3. * Stable, unlikely cause of symptoms. (3) Chest pain: Qualifiers: Chest pain type: unspecified Qualified Code(s): R07.9 - Chest pain, unspecified Code(s): R07.9 - Chest pain, unspecified Status: Acute Assessment and Plan: Reported on admission. Patient denies at this time. Does not appear cardiac in nature. * Troponin negative x3. * Likely secondary to GI source. (4) Acute UTI: Code(s): N39.0 - Urinary tract infection, site not specified Status: Ruled-out Assessment and Plan: Asymptomatic bacteruria. * UA with trace leukocytes, WBC 6-10 and no epi cells or bacteria. No suprapubic tenderness or urinary complaints on exam. * Rocephin 1 gram given in ED. * Given patient is asymptomatic on exam stopped antibiotics and monitor patient. * Blood and urine cultures without growth to date. (5) Parkinsons disease: Code(s): G20 - Parkinson's disease Status: Chronic Assessment and Plan: Continue carbidopa-levodopa at home dose (6) Dementia: Code(s): F03.90 - Unspecified dementia, unspecified severity, without behavioral disturbance, psychotic disturbance, mood disturbance, and anxiety Status: Chronic Assessment and Plan: Continue memantine and seroquel. Supportive care. 07/30 Patient lethargic hold morning seroquel. Plan CODE STATUS: FULL CODE Disposition: From home. Plan to return home with daughter and home health. GI prophylaxis: Protonix BID Subjective Date/azam
--- NOTE | 2022-08-01 12:56 | PM.IMPN ---
Progress Note: A&P Assessment and Plan (1) Abdominal pain: Code(s): R10.9 - Unspecified abdominal pain Status: Acute Assessment and Plan: Patient presented to ED on 07/27/22 due to abdominal pain and lack of appetite. CT chest, abd, pelvis suggested moderate pericardial effusion, mild esophagitis/gastritis and negative for PE. Esophagitis/gastritis suggested on CT. Continue H2 karla. Lipase and amylase mildly elevated; lipase continues to trend up, no >600. 07/27 CT abd with stable pancreatic duct dilation. No pancreatitis noted. lipid panel - triglycerides 161 and not significantly elevated. Give GI cocktail x1. started on protonix 40 mg BID. 07/[address] abd/pelvis with moderate esophageal/gastric wall edema and moderate duodenal diverticulum and no evidence of pancreatitis. Unclear significance of elevated lipase, but given that it continues to rise and patient has intermittent c/o abd pain, will consult GI and order MRCP 08/01 Patient unable to complete MRCP due to pt unable to sit still. GI has seen patient and advised diet advancement. Lipase is under 1000 and there is no acute concern. Will start Protonix due to gastritis. (2) Effusion, pericardium: Code(s): I31.39 - Other pericardial effusion (noninflammatory) Status: Chronic Assessment and Plan: Moderate pericardial effusion suggested on CT scan. Echocardiogram limited ordered and shows small pericardial effusion. Discussed with Cardiology and this is unchanged from previous TTE. Patient is denying chest pain at this time, no signs of tamponade, consulted cardiology TSH and procalcitonin within normal limits. CRP 1.9 and may be elevated from previous surgery versus UTI. Scheduled Ibuprofen 600 mg PO Q8 hours and colchicine 0.6 mg PO BID stopped due to unlikely pericarditis per Cardiology Troponin negative x3. Stable, unlikely cause of symptoms. (3) Chest pain: Qualifiers: Chest pain type: unspecified Qualified Code(s): R07.9 - Chest pain, unspecified Code(s): R07.9 - Chest pain, unspecified Status: Acute Assessment and Plan: Reported on admission. Patient denies at this time. Does not appear cardiac in nature. Troponin negative x3. Likely secondary to GI source. (4) Acute UTI: Code(s): N39.0 - Urinary tract infection, site not specified Status: Ruled-out Assessment and Plan: Asymptomatic bacteruria. UA with trace leukocytes, WBC 6-10 and no epi cells or bacteria. No suprapubic tenderness or urinary complaints on exam. Rocephin 1 gram given in ED. Given patient is asymptomatic on exam stopped antibiotics and monitor patient. Blood and urine cultures without growth to date. (5) Parkinsons disease: Code(s): G20 - Parkinson's disease Status: Chronic Assessment and Plan: Continue carbidopa-levodopa at home dose (6) Dementia: Code(s): F03.90 - Unspecified dementia, unspecified severity, without behavioral disturbance, psychotic disturbance, mood disturbance, and anxiety Status: Chronic Assessment and Plan: Continue memantine and seroquel. Supportive care. 07/30 Patient lethargic hold morning seroquel. Plan CODE STATUS: FULL CODE Disposition: From home. Plan to return home with daughter and home health. GI prophylaxis: Protonix BID Subjective Date/time seen: 08/01/22 12:56 Interval history: Patient is presently effusion and very difficult to understand. Unable to complete a full review of systems. I was able to understand the patient was not in pain at the time of my evaluation. Review of Systems Review of Systems: ROS unobtainable: Yes unobtainable due to medical condition Exam Narrative: GENERAL: Comfortable, no acute distress HENMT: moist mucous membranes EYES: EOM intact b/l NECK: no lymphadenopathy RESPIRATORY: clear to auscu
[2022-08-01] MEDS: SALINE LOCK FLUSH 10 ML IV PUSH ×2 (13:38→20:53)
[2022-08-01 13:56] VITALS: BP 129/57; PULSE 64; RESP 16; TEMP 36.3; O2SAT 99
--- NOTE | 2022-08-01 13:57 | WPDGICN ---
Assessment and Plan Assessment and plan (1) Elevated lipase: Code(s): R74.8 - Abnormal levels of other serum enzymes Status: Acute Assessment and Plan: Elevated lipase is in nonspecific range. Given the fact that she had recent cholecystectomy this is not alarming. Plan to follow conservatively. Likely not related to her ongoing pericardial infusion. Suggest observation at this point monitor labs intermittently. (2) History of cholecystectomy: Code(s): Z90.49 - Acquired absence of other specified parts of digestive tract Status: Acute Assessment and Plan: Patient recovering after recent cholecystectomy. Currently pain free. Suggested advancing to a low-fat diet. (3) Dementia: Code(s): F03.90 - Unspecified dementia, unspecified severity, without behavioral disturbance, psychotic disturbance, mood disturbance, and anxiety Status: Chronic (4) Parkinsons disease: Code(s): G20 - Parkinson's disease Status: Chronic (5) Moderate aortic valve stenosis: Code(s): I35.0 - Nonrheumatic aortic (valve) stenosis Status: Acute GI Consult Note Consult date/time: 08/01/22 13:57 Reason for consult: Elevated lipase HPI: Debbie Trejo is a 82 year old female I am asked see at the request the hospitalist service because of elevated lipase. Patient has dementia and underlying history of Parkinson's disease. Patient underwent cholecystectomy on 07/13/2022. Patient apparently went home and had rather vague abdominal discomfort according to her daughter. She ultimately came back to the hospital last Monday on 07/27/2022. At that time imaging study revealed some pericardial effusion. Patient has been treated conservatively. Her abdominal pain has resolved. She has noted however mild nonspecific elevation of her lipase. Patient is anxious to eat. Denies any abdominal pain imaging studies revealed no significant pancreatitis. History noncontributory. Review of Systems Review of Systems: ROS unobtainable: Yes unobtainable due to mental status PMFSH Past Medical History Medical History Anxiety and depression Breast cancer Cerebrovascular accident Dementia Hypertension Parkinsons disease Surgical History Surgical History History of cholecystectomy History of lumpectomy Family History Family History Other Glaucoma Hypertension Social History Social History Social History: Surrogate medical decision maker: Leigh Maldonado, daughter. Code status: Full code. Smoking status: Never smoker Alcohol intake: never Substance use: never Substance use type: does not use Additional living arrangements comments: Originally from the [facility]. She has 4 children. Lives with daughter Leigh. 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 Spiritual care concerns: No Meds Home Medications and Allergies Home Medications Medication Instructions Recorded Confirmed Type letrozole 2.5 mg tablet 2.5 mg PO DAILY 01/18/20 07/28/22 History memantine 10 mg tablet 10 mg PO DAILY 01/18/20 07/28/22 History quetiapine 100 mg tablet (Seroquel) 100 mg PO QHS 04/05/22 07/28/22 History polyethylene glycol 3350 17 gram 17 g PO QAM #30 ea 04/08/22 07/28/22 Rx oral powder packet (Miralax) sennosides 8.6 mg-docusate sodium 1 tab-cap PO DAILY PRN 04/08/22 07/28/22 Rx 50 mg tablet (Senokot-S) Constipation #30 tabs carbidopa ER 50 mg-levodopa 200 mg 50 - 200 tablet PO DAILY #90 tabs 06/10/22 07/28/22 Rx tablet,extended release Seroquel 25 mg PO QAM 07/11/22 07/28/22 History Allergies Allergy/AdvReac Type Severity Reaction Status Date / Time haloperidol Allergy Severe Di
[2022-08-01 20:00] VITALS: PULSE 67; RESP 16; O2SAT 96
[2022-08-01] MEDS: SENNA/DOCUSATE SODIUM TABLET 1 TAB PO (20:53)
[2022-08-01] MEDS: QUEtiapine FUMARATE 100 MG TABLET PO (20:53)
[2022-08-01] MEDS: PANTOPRAZOLE SODIUM IV 40 MG VIAL IV PUSH (20:53)
[2022-08-01 21:03] VITALS: BP 134/87; PULSE 67; RESP 16; TEMP 36.6; O2SAT 96
[2022-08-02] MEDS: LACTATED RINGERS 1,000 ML 100 ML IV CONT (03:04)
[2022-08-02] MEDS: SALINE LOCK FLUSH 10 ML IV PUSH ×2 (06:23→14:14)
[2022-08-02 06:37] LABS: Hemoglobin 9.9 g/dL (12.0-15.0); Mean Corpuscular HGB Conc 30.9 g/dl (32-36); Mean Corpuscular Hemoglobin 27.8 pg (26-34); Mean Corpuscular Volume 89.9 fl (80-100); Platelet Count Result 226 k/mm3 (150-375); Red Blood Count 3.56 M/mm3 (4.2-5.4); White Blood Count 7.8 K/mm3 (4.5-10.0)
[2022-08-02 06:48] LABS: Alanine Aminotransferase 18 U/L (6-35); Albumin Level 3.4 g/dL (3.5-5.1); Alkaline Phosphatase 81 U/L (38-126); Anion Gap 3 mmol/L (8-16); Aspartate Amino Transferase 31 U/L (14-36); Bilirubin,Total 0.4 mg/dL (0.2-1.3); Blood Urea Nitrogen 3 mg/dL (7-17); Calcium 8.5 mg/dL (8.4-10.2); Carbon Dioxide 29 mmol/L (22-30); Chloride 109 mmol/L (98-107); Estimated CRCL calculation 41 ml/min; Estimated Glomerular Filt Rate > 60; Glucose 85 mg/dL (65-110); Potassium 3.5 mmol/L (3.4-5.0); Sodium 141 mmol/L (137-145)
[2022-08-02 06:54] VITALS: BP 133/72; PULSE 62; RESP 16; TEMP 36.6; O2SAT 99
[2022-08-02 08:29] VITALS: O2SAT 95
[2022-08-02] MEDS: ENOXAPARIN 40 MG/0.4 ML SYRINGE SUB-Q (09:47)
[2022-08-02] MEDS: LETROZOLE (*CHEMO) 2.5 MG TABLET PO (09:47)
[2022-08-02] MEDS: MEMANTINE 10 MG TABLET PO (09:47)
[2022-08-02] MEDS: CARBIDOPA/LEVODOPA 25/100 MG CR TABLET 2 TABLET PO (09:47)
[2022-08-02 09:48] VITALS: RESP 16; O2SAT 95
[2022-08-02] MEDS: polyethylene glycoL 3350 17 GM POWD.PACK PO (09:48)
[2022-08-02] MEDS: PANTOPRAZOLE SODIUM IV 40 MG VIAL IV PUSH (09:48)
--- NOTE | 2022-08-02 12:54 | PCNFU ---
Nutrition Follow-Up Complete: Underweight related to reduced appetite as evidenced by family report and unintentional weight loss goal: PO intake 50% or greater for meals Patient is meeting goal. No new goal. Pt current nutrition is Low Fat with Ensure compact BID. Last recorded weight is 43 kg. Bowel Motility:+BM reported 07/31 Labs Reviewed:Cr 0.6,BUN 3 Meds Noted:Lovenox, Protonix, Miralax. Skin: WNL Additional Notes: Patient current with Low Fat diet and tolerating. Diet supplements of Ensure compact BID providing an additional 220 kcals and 9 gms protein per 8 oz. Agree with diet orders. Monitor intake, wt, labs. Follow up in 7 days.
--- NOTE | 2022-08-02 13:06 | WPDGIPROGNO ---
Progress Note: A&P Assessment and Plan (1) Abdominal pain: Code(s): R10.9 - Unspecified abdominal pain Status: Acute Assessment and Plan: Resolved pain. Nonspecific etiology. Likely related to healing after surgery. (2) Elevated lipase: Code(s): R74.8 - Abnormal levels of other serum enzymes Status: Acute Assessment and Plan: Elevated lipase to a nonspecific range. No indication for pancreatitis. Likely related to recent cholecystectomy. (3) History of cholecystectomy: Code(s): Z90.49 - Acquired absence of other specified parts of digestive tract Status: Acute Assessment and Plan: Healing well after recent cholecystectomy. (4) Acute UTI: Code(s): N39.0 - Urinary tract infection, site not specified Status: Ruled-out (5) Effusion, pericardium: Code(s): I31.39 - Other pericardial effusion (noninflammatory) Status: Chronic (6) Dementia: Code(s): F03.90 - Unspecified dementia, unspecified severity, without behavioral disturbance, psychotic disturbance, mood disturbance, and anxiety Status: Chronic (7) Parkinsons disease: Code(s): G20 - Parkinson's disease Status: Chronic Subjective Date/time seen: 08/02/22 13:06 Interval history: Patient alert comfortable today. No longer has abdominal pain. No nausea. Eating regular food without difficulty. Very hungry. Review of Systems Review of Systems: ROS unobtainable: Yes unobtainable due to mental status Exam Narrative: Physical exam reveals patient to be alert. Vital signs stable. HEENT exam reveals no icterus. Lungs are clear. Heart without murmur. Abdomen bowel sounds present soft nontender with no organomegaly. Objective Data Vital Signs Vital Signs: Vital Signs - 24 hr 08/01/22 13:56 08/01/22 21:03 08/01/22 20:00 Temperature 97.3 F L 97.8 F Pulse Rate 64 67 67 Respiratory Rate 16 16 16 Blood Pressure 129/57 L 134/87 Pulse Oximetry 99 96 96 Oxygen Delivery Room Air 08/02/22 06:54 08/02/22 08:29 08/02/22 09:48 Temperature 97.8 F Pulse Rate 62 Respiratory Rate 16 16 Blood Pressure 133/72 Pulse Oximetry 99 95 95 Oxygen Delivery Room Air Room Air Intake/Output Intake/Output: Intake & Output 0407/31/22 08/01/22 08/02/22 23:59 23:59 23:59 23:59 Intake Total 1430 3260 2920 1580 Balance 1430 3260 2920 1580 Meds/Results Medications: Active Medications Generic Name Dose Route Start Last Admin Trade Name Freq PRN Reason Stop Dose Admin Carbidopa/Levodopa 2 tablet 07/28/22 09:00 08/02/22 09:47 Carbidopa/Levodopa 25/100 Mg Cr Tablet PO 2 tablet DAILY CECI Administration Enoxaparin Sodium 40 mg 07/31/22 09:00 08/02/22 09:47 Enoxaparin 40 Mg/0.4 Ml Syringe SUB-Q 40 mg DAILY CECI Administration Letrozole 2.5 mg 07/28/22 09:00 08/02/22 09:47 Letrozole (*Chemo) 2.5 Mg Tablet PO 2.5 mg DAILY CECI Administration Memantine 10 mg 07/28/22 09:00 08/02/22 09:47 Memantine 10 Mg Tablet PO 10 mg DAILY CECI Administration Miconazole Nitrate 1 applic 07/28/22 09:00 08/02/22 09:48 Miconazole 2% Antifungal Ointment 56 Gm TOPICAL 1 applic Q12HR CECI Administration Morphine Sulfate 2 mg 07/30/22 08:35 Morphine Sulfate (*Crx) 2 Mg/Ml Inj IV PUSH Q4H PRN Pain Rated 7-10 Ondansetron HCl 4 mg 07/28/22 12:22 Ondansetron Inj 4 Mg/2 Ml Vial IV PUSH Q4H PRN Nausea And Vomiting Pantoprazole Sodium 40 mg 08/01/22 21:00 08/02/22 09:48 Pantoprazole Sodium Iv 40 Mg Vial IV PUSH 40 mg Q12HR CECI Administration Polyethylene Glycol 17 gm 07/28/22 09:00 08/02/22 09:48 Polyethylene Glycol 3350 17 Gm Powd.Pack PO 17 gm QAM CECI Administration Quetiapine Fumarate 100 mg 07/28/22 21:00 08/01/22 20:53 Quetiapine Fumarate 100 Mg Tablet PO 100 mg QHS CECI Administration Quetiapine Fumarate 25 mg 07/28/22 09:00
--- NOTE | 2022-08-02 13:30 | P.DS_ITS ---
DS: Admitting Diagnosis Discharge Date 08/02/2022 Admitting Diagnosis Pericardial effusion Acute UTI Parkinsons disease Dementia DS: Discharge Diagnosis Discharge Diagnosis (1) Abdominal pain: Code(s): R10.9 - Unspecified abdominal pain Status: Acute Assessment and Plan: Patient presented to ED on 07/27/22 due to abdominal pain and lack of appetite. CT chest, abd, pelvis suggested moderate pericardial effusion, mild esophagitis/gastritis and negative for PE. * Esophagitis/gastritis suggested on CT. * Lipase and amylase mildly elevated; lipase continues to trend up >600 with intermittent epigastric pain * 07/27 CT abd with stable pancreatic duct dilation. No pancreatitis noted. * lipid panel - triglycerides 161 and not significantly elevated. * Given GI cocktail x1. started on protonix 40 mg BID with minimal improvement in pain. * 07/[address] abd/pelvis with moderate esophageal/gastric wall edema and moderate duodenal diverticulum and no evidence of pancreatitis. * Unclear significance of elevated lipase, but given that it continues to rise and patient has intermittent c/o abd pain, will consult GI and order MRCP * 08/01 Patient unable to complete MRCP due to pt unable to sit still. GI has seen patient and advised diet advancement. Lipase is under 1000 and there is no acute concern. (2) Effusion, pericardium: Code(s): I31.39 - Other pericardial effusion (noninflammatory) Status: Chronic Assessment and Plan: * Moderate pericardial effusion suggested on CT scan upon admission. * Echocardiogram limited ordered and shows small pericardial effusion. * Patient is denying chest pain at this time, no signs of tamponade, * consulted cardiology and discussed echocardiogram. Pericardial effusion unchanged from previous TTE * TSH and procalcitonin within normal limits. CRP 1.9 and may be elevated from previous surgery versus UTI. * Scheduled Ibuprofen 600 mg PO Q8 hours and colchicine 0.6 mg PO BID stopped due to unlikely pericarditis per Cardiology * Troponin negative x3. * Stable, unlikely cause of symptoms. (3) Chest pain: Qualifiers: Chest pain type: unspecified Qualified Code(s): R07.9 - Chest pain, unspecified Code(s): R07.9 - Chest pain, unspecified Status: Resolved Assessment and Plan: Reported on admission. Patient denies at this time. Does not appear cardiac in nature. * Troponin negative x3. * Likely secondary to GI source. (4) Acute UTI: Code(s): N39.0 - Urinary tract infection, site not specified Status: Ruled-out Assessment and Plan: Asymptomatic bacteruria. * UA with trace leukocytes, WBC 6-10 and no epi cells or bacteria. No suprapubic tenderness or urinary complaints on exam. * Rocephin 1 gram given in ED. * Given patient is asymptomatic on exam stopped antibiotics and monitor patient. * Blood and urine cultures without growth to date. (5) Parkinsons disease: Code(s): G20 - Parkinson's disease Status: Chronic Assessment and Plan: Continue carbidopa-levodopa at home dose (6) Dementia: Code(s): F03.90 - Unspecified dementia, unspecified severity, without behavioral disturbance, psychotic disturbance, mood disturbance, and anxiety Status: Chronic Assessment and Plan: Continue memantine and seroquel. Supportive care. 07/30 Patient lethargic hold morning seroquel. 08/02 Seroquel am dose decreased 12.5 mg PO in am. Continue HS dose unchanged. (7) Elevated lipa
--- NOTE | 2022-08-02 13:30 | PM.DS ---
DS: Admitting Diagnosis Discharge Date 08/02/2022 Admitting Diagnosis Pericardial effusion Acute UTI Parkinsons disease Dementia DS: Discharge Diagnosis Discharge Diagnosis (1) Abdominal pain: Code(s): R10.9 - Unspecified abdominal pain Status: Acute Assessment and Plan: Patient presented to ED on 07/27/22 due to abdominal pain and lack of appetite. CT chest, abd, pelvis suggested moderate pericardial effusion, mild esophagitis/gastritis and negative for PE. Esophagitis/gastritis suggested on CT. Lipase and amylase mildly elevated; lipase continues to trend up >600 with intermittent epigastric pain 07/27 CT abd with stable pancreatic duct dilation. No pancreatitis noted. lipid panel - triglycerides 161 and not significantly elevated. Given GI cocktail x1. started on protonix 40 mg BID with minimal improvement in pain. 07/[address] abd/pelvis with moderate esophageal/gastric wall edema and moderate duodenal diverticulum and no evidence of pancreatitis. Unclear significance of elevated lipase, but given that it continues to rise and patient has intermittent c/o abd pain, will consult GI and order MRCP 08/01 Patient unable to complete MRCP due to pt unable to sit still. GI has seen patient and advised diet advancement. Lipase is under 1000 and there is no acute concern. (2) Effusion, pericardium: Code(s): I31.39 - Other pericardial effusion (noninflammatory) Status: Chronic Assessment and Plan: Moderate pericardial effusion suggested on CT scan upon admission. Echocardiogram limited ordered and shows small pericardial effusion. Patient is denying chest pain at this time, no signs of tamponade, consulted cardiology and discussed echocardiogram. Pericardial effusion unchanged from previous TTE TSH and procalcitonin within normal limits. CRP 1.9 and may be elevated from previous surgery versus UTI. Scheduled Ibuprofen 600 mg PO Q8 hours and colchicine 0.6 mg PO BID stopped due to unlikely pericarditis per Cardiology Troponin negative x3. Stable, unlikely cause of symptoms. (3) Chest pain: Qualifiers: Chest pain type: unspecified Qualified Code(s): R07.9 - Chest pain, unspecified Code(s): R07.9 - Chest pain, unspecified Status: Resolved Assessment and Plan: Reported on admission. Patient denies at this time. Does not appear cardiac in nature. Troponin negative x3. Likely secondary to GI source. (4) Acute UTI: Code(s): N39.0 - Urinary tract infection, site not specified Status: Ruled-out Assessment and Plan: Asymptomatic bacteruria. UA with trace leukocytes, WBC 6-10 and no epi cells or bacteria. No suprapubic tenderness or urinary complaints on exam. Rocephin 1 gram given in ED. Given patient is asymptomatic on exam stopped antibiotics and monitor patient. Blood and urine cultures without growth to date. (5) Parkinsons disease: Code(s): G20 - Parkinson's disease Status: Chronic Assessment and Plan: Continue carbidopa-levodopa at home dose (6) Dementia: Code(s): F03.90 - Unspecified dementia, unspecified severity, without behavioral disturbance, psychotic disturbance, mood disturbance, and anxiety Status: Chronic Assessment and Plan: Continue memantine and seroquel. Supportive care. 07/30 Patient lethargic hold morning seroquel. 08/02 Seroquel am dose decreased 12.5 mg PO in am. Continue HS dose unchanged. (7) Elevated lipase: Code(s): R74.8 - Abnormal levels of other serum enzymes Status: Acute Assessment and Plan: As above. (8) Gastritis: Code(s): K29.70 - Gastritis, unspecified, without bleeding Status: Acute Assessment and Plan: Not on CT scan with epigastric pain complaint. Continue PPI therapy DS: Summary Hospital Course Reason for hospitalization: chest pain Hospital Course: Patient
[2022-08-02] MEDS: NEOMYCIN/POLYMYXIN/BACITRACIN OINTMENT PACKET 1 PACKET (14:14)
== END 2022-08-02 16:15 | disposition home health service (06) | DRG 392 ==
LOC: ANHED 22:43 → ANH2MED 07-28 00:36
PROVIDERS: Internal Medicine Critical Care Medicine; Admitting Provider Internal Medicine; Emergency Provider Physician Assistant; PCP Physician Assistant; Visit Provider Nurse Practitioner Family
DX: K29.70 Gastritis, unspecified, without bleeding (principal); N39.0 Urinary tract infection, site not specified; K20.90 Esophagitis, unspecified without bleeding; I10 Essential (primary) hypertension; G20 Parkinson's disease; R10.9 Unspecified abdominal pain; F03.90 Unspecified dementia, unspecified severity, without behavioral disturbance, psychotic disturbance, mood disturbance, and anxiety; F32.A Depression, unspecified; F41.9 Anxiety disorder, unspecified; Z86.73 Personal history of transient ischemic attack (TIA), and cerebral infarction without residual deficits; Z85.3 Personal history of malignant neoplasm of breast; Z90.49 Acquired absence of other specified parts of digestive tract
CPT/HCPCS: 36415; 36569; 71275; 74177; 80048; 80053; 80061; 81001; 82150; 82948; 83690; 83880; 84145; 84443; 84484; 85025; 85027; 86140; 87086; 93005; 93308; 96361; 96365; 96376; 97116; 97161; 97165; 97530; 99285; A9270; C1751; C9113; G0378; J0696; J1650; J7120; Q9967

== ENCOUNTER 2022-09-21 09:20 | Emergency (ER) | payer MEDICARE, SELFPAY ==
[2022-09-21] VITALS (11 sets, daily range): BP systolic 134–191; BP diastolic 64–94; PULSE 53–105; RESP 15–25; TEMP 36.3; O2SAT 98–100
--- NOTE | 2022-09-21 09:28 | ECG_ITS ---
Measurements Intervals [place] Rate: 76 P: 33 IL: 178 QRS: -26 QRSD: 73 T: 7 QT: 378 QTc: 427 Interpretive Statements SINUS RHYTHM DELAYED PRECORDIAL R/S TRANSITION INFERIOR INFARCT, AGE INDETERMINATE BASELINE ARTIFACT- I, II, III, AVR, AVL, AVF, V1, V3-V6 ABNORMAL ECG COMPARED TO ECG 07/27/2022 18:19:15 NO SIGNIFICANT CHANGES Electronically Signed On 09-21-2022 9:44:29 CDT by Efrem Kolb D.O.
[2022-09-21] MEDS: hydrALAZINE HCL 20 MG/ML VIAL 10 MG IV PUSH (13:24)
[2022-09-21 13:27] LABS: Basophils Absolute Auto 0.1 K/mm3 (0.0-0.1); Basophils Percent Auto 0.7 % (0.2-1.2); Eosinophils Absolute Auto 0.2 K/mm3 (0-0.3); Hematocrit 38.8 % (37.0-47.0); Hemoglobin 12.2 g/dL (12.0-15.0); Immature Granulocyte Absolute 0.02 K/mm3 (0.00-0.031); Immature Granulocyte Percent A 0.3 % (0-0.5); Lymphocytes Absolute Auto 2.06 K/mm3 (0.9-3.2); Lymphocytes Percent Auto 29.3 % (18.3-44.2); Mean Corpuscular HGB Conc 31.4 g/dl (32-36); Mean Corpuscular Hemoglobin 27.4 pg (26-34); Mean Corpuscular Volume 87.2 fl (80-100); Mean Platelet Volume 9.4 fl (7.4-10.4); Monocytes Absolute Auto 0.5 K/mm3 (0.1-0.6); Neutrophils Absolute Auto 4.2 K/mm3 (1.3-6.7); Neutrophils Percent Auto 59.7 % (45.5-73.1); Platelet Count Result 185 k/mm3 (150-375); Red Blood Count 4.45 M/mm3 (4.2-5.4); Red Cell Distribution Width 14.3 % (11.5-14.5)
--- NOTE | 2022-09-21 13:54 | ED.DIZZY ---
HPI - Dizziness General Chief Complaint: Dizziness Stated Complaint: dizziness Time Seen by Provider: 09/21/22 11:57 History of Present Illness HPI Narrative: 82-year-old female presenting the emergency department for evaluation of dizziness. Patient does have a history of dementia but has no prior history of hypertension. Family states that the patient was agitated last night and was not taking her medications and when they checked her blood pressure it was 187. When they checked her blood pressure this morning she had a systolic blood pressure over 200. Patient denies any chest pain or shortness of breath. Family states the patient did take her medications this morning. Upon arrival to the ED patient was complaining of some left-sided neck pain but denied any chest pain. Patient does have dementia and is a poor historian. Related Data Home Medications Medication Instructions Recorded Confirmed letrozole 2.5 mg tablet 2.5 mg PO DAILY 01/18/20 08/15/22 memantine 10 mg tablet 10 mg PO DAILY 01/18/20 08/15/22 quetiapine 100 mg tablet (Seroquel) 100 mg PO QHS 04/05/22 08/15/22 Allergies Allergy/AdvReac Type Severity Reaction Status Date / Time haloperidol Allergy Severe Difficulty Verified 09/21/22 11:19 Breathing Review of Systems Review of Systems: All systems reviewed & are unremarkable except as noted in HPI and below PMFSH Past Medical History Medical History (Updated 09/21/22 @ 21:20 by Flaco Martin MD) Anxiety and depression Breast cancer Cerebrovascular accident Dementia Hypertension Parkinsons disease Surgical History Surgical History (Updated 08/15/22 @ 10:44 by Kori Rodriguez) History of cholecystectomy By Dr. Concepcion on 07/13/22. History of lumpectomy Family History Family History Other Glaucoma Hypertension Social History Social History Social History: Surrogate medical decision maker: Leigh Maldonado, daughter. Code status: Full code. Smoking status: Never smoker Alcohol intake: never Substance use: never Substance use type: does not use Lack of Transportation: No Lack of Food: Never True Current Housing: I Have Housing Concerned About Future Housing: No Difficulty Paying Gas/Electric Bills: No Difficulty Paying for Meds: No Currently Unemployed: No Education: High School Diploma/GED Difficulty w/ Childcare or Family Care: No Additional living arrangements comments: Originally from the [facility]. She has 4 children. Lives with daughter Leigh. 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 Spiritual care concerns: No Exam Narrative: APPEARANCE: Well appearing, no pain, no distress, well-nourished. HEAD: normocephalic, atraumatic. EYES: PERRLA/EOMI, conjunctivae clear. NOSE: Normal no drainage THROAT: Pharynx clear, no exudate. NECK: Supple. No adenopathy, no masses. RESPIRATORY: Airway patent, respirations nonlabored. Clear to auscultation bilaterally, no rales, rhonchi, wheezing. CARDIOVASCULAR: Regular rate and rhythm without murmurs rubs or gallops. ABDOMINAL: Soft, nontender, nondistended, normal bowel sounds MUSCULOSKELETAL: Moves all extremities. Strength/ROM intact, No edema, No calf tenderness. NEURO: Alert. Cranial nerves II through XII intact. Grossly intact SKIN: Warm, dry. Normal Color Course Course Emergency Course: 82-year-old female presented the ED for evaluation of hypertension. Patient had a blood pressure of 160 systolic on arrival to the ED. Patient was afebrile with no leukocytosis and patient hemoglobin is 12.2. Patient was treated with hydralazine. Patient's troponins were mildly elevated. EKG showed no evidence of ischemic change. Case was discussed with telecommunications line installer on-call and they are comfortable with the patient being dischar
[2022-09-21 14:34] LABS: Appearance Urine Cloudy (Clear); Bacteria Urine None Seen /hpf; Bilirubin Urine Negative (Negative); Blood Urine Negative (Negative); Color Urine Yellow (Yellow); Glucose Urine UA Negative (Negative); Ketones Urine Negative (Negative); Leukocyte Esterase Ur Negative LEU/UL (Negative); Need Manual Microscopic Reviewed; Nitrate Urine Negative (Negative); Non Pathogenic Casts 0-2; Protein Urine Negative (Negative); RBC Urine 0-2 /hpf (0-2); Specific Grav Ur 1.008 (1.001-1.035); Squamous Epithelial Cell Urine None seen /hpf (Few); Urobilinogen Urine 0.2 mg/dL (<2.0); WBC Urine 0-5 /hpf; pH Urine 7.5 (5.0-9.0)
[2022-09-21 14:37] LABS: Add Urine Microscopic? YES
[2022-09-21 14:48] LABS: Alanine Aminotransferase 16 U/L (6-35); Albumin Level 4.5 g/dL (3.5-5.1); Alkaline Phosphatase 87 U/L (38-126); Anion Gap 15 mmol/L (8-16); Aspartate Amino Transferase 38 U/L (14-36); Bilirubin,Total 0.6 mg/dL (0.2-1.3); Blood Urea Nitrogen 9 mg/dL (7-17); Calcium 9.6 mg/dL (8.4-10.2); Carbon Dioxide 23 mmol/L (22-30); Chloride 105 mmol/L (98-107); Estimated CRCL calculation 36 ml/min; Estimated Glomerular Filt Rate > 60; Glucose 119 mg/dL (65-110); Potassium 4.4 mmol/L (3.4-5.0); Sodium 143 mmol/L (137-145)
[2022-09-21 15:00] LABS: Troponin I 0.035 ng/mL (0.000-0.034)
[2022-09-21 17:29] LABS: Troponin I 0.037 ng/mL (0.000-0.034)
== END 2022-09-21 18:35 | disposition home or self-care (01) ==
PROVIDERS: Emergency Provider Emergency Medicine; PCP Physician Assistant
DX: I10 Essential (primary) hypertension (principal); F03.90 Unspecified dementia, unspecified severity, without behavioral disturbance, psychotic disturbance, mood disturbance, and anxiety; G20 Parkinson's disease; F41.9 Anxiety disorder, unspecified; F32.A Depression, unspecified; Z86.73 Personal history of transient ischemic attack (TIA), and cerebral infarction without residual deficits; R94.31 Abnormal electrocardiogram [ECG] [EKG]
CPT/HCPCS: 36415; 80053; 81001; 84484; 85025; 93005; 96374; 99284; J0360

== ENCOUNTER 2022-11-02 17:04 | Observation (INO) | payer MEDICARE, SELFPAY ==
--- NOTE | ~2022-11-02 | CT_ITS ---
EXAMINATION: CT brain wo con DATE: 11/02/2022 18:59 INDICATION: Dementia. Parkinson's disease. Fall. TECHNIQUE: Computed tomography (CT) of the head was performed without intravenous contrast. The mA wa s adjusted according to patient size. Iterative reconstruction technique was employed. The dose-lengt h product was 605.33 mGy-cm. COMPARISON: Head CT 04/05/2022 FINDINGS: There is diffuse brain volume loss. There is an old lacunar infarct in the right caudate nu cleus. There is no intracranial hemorrhage, acute infarction, or abnormal intracranial mass lesion. T here are scattered areas of low attenuation in the cerebral white matter, which is within normal limi ts for the patient's age. The ventricles are normal in size. The paranasal sinuses are clear. The orb its are normal. The mastoid air cells are normal. There is superior scalp soft tissue swelling. IMPRESSION: 1. Old lacunar infarct in the right caudate nucleus. Reviewed, dictated and finalized at location E.
--- NOTE | ~2022-11-02 | XR_ITS ---
EXAMINATION: XR chest 1V DATE: 11/02/2022 19:13 INDICATION: Fall. TECHNIQUE: A single frontal view of the chest was obtained. COMPARISON: Chest 2 views 01/18/2020, chest CT 07/27/2022 FINDINGS: There is mild atelectasis at left lung base. No pleural effusion or pneumothorax. The heart size is normal. Surgical clips in the right upper quadrant are likely from cholecystectomy. IMPRESSION: 1. Mild atelectasis at left lung base. Reviewed, dictated and finalized at location E.
--- NOTE | ~2022-11-02 | XR_ITS ---
EXAMINATION: XR hip BI 2V w AP pelvis DATE: 11/02/2022 19:13 INDICATION: Fall. Pelvis injury. TECHNIQUE: An anteroposterior view of the pelvis and 2 views of each hip were obtained. COMPARISON: CT 07/30/2022 FINDINGS: A calcified uterine fibroid is noted. Bone alignment is normal. No fracture. There is sever e lower lumbar spondylosis. There is mild osteoarthritis of the hips. IMPRESSION: 1. Mild osteoarthritis of the hips. Reviewed, dictated and finalized at location E.
--- NOTE | ~2022-11-02 | CT_ITS ---
EXAMINATION: CT cervical spine wo con DATE: 11/02/2022 19:04 INDICATION: Head injury. TECHNIQUE: Computed tomography (CT) of the cervical spine was performed without intravenous contrast. Automated exposure control and iterative reconstruction technique were employed. The dose-length pro duct was 147.84 mGy-cm. COMPARISON: None FINDINGS: There is 3 degrees dextrocurvature of cervical spine. Vertebral body heights are normal. Th ere is severely decreased disc height from C3-C4 through C6-C7. The following disc levels are specifi brittany discussed: C2-C3: There is no uncovertebral joint osteoarthritis. There is moderate right and mild left facet christelle int osteoarthritis. There is mild right neural foraminal stenosis. There is no central canal stenosis . C3-C4: There is mild right and severe left uncovertebral joint osteoarthritis. There is mild right an d severe left facet joint osteoarthritis. There is moderate left neural foraminal stenosis. There is no central canal stenosis. C4-C5: There is severe bilateral uncovertebral joint osteoarthritis. There is moderate right and mild left facet joint osteoarthritis. There is mild bilateral neural foraminal stenosis. There is mild ce ntral canal stenosis. C5-C6: There is severe bilateral uncovertebral joint osteoarthritis. There is mild bilateral facet christelle int osteoarthritis. There is mild bilateral neural foraminal stenosis. There is mild central canal st enosis. C6-C7: There is severe bilateral uncovertebral joint osteoarthritis. There is mild right and severe l eft facet joint osteoarthritis. There is mild bilateral neural foraminal stenosis. There is mild cent ral canal stenosis. C7-T1: There is no uncovertebral joint osteoarthritis. There is moderate and severe left facet joint osteoarthritis. There is mild bilateral neural foraminal stenosis. There is no central canal stenosis . IMPRESSION: 1. No fracture. 2. Severe cervical spondylosis. Reviewed, dictated and finalized at location E.
[2022-11-02 17:21] VITALS: BP 158/88; PULSE 84; RESP 16; TEMP 36.7; O2SAT 98
--- NOTE | 2022-11-02 18:47 | ECG_ITS ---
Measurements Intervals [place] Rate: 79 P: 58 IL: 172 QRS: -28 QRSD: 84 T: 32 QT: 406 QTc: 467 Interpretive Statements SINUS RHYTHM DELAYED PRECORDIAL R/S TRANSITION LOW QRS VOLTAGE IN LIMB LEADS INFERIOR INFARCT, AGE INDETERMINATE BASELINE ARTIFACT- I, III, AVF ABNORMAL ECG COMPARED TO ECG 09/21/2022 09:31:57 NO SIGNIFICANT CHANGES Electronically Signed On 11-02-2022 21:15:30 CDT by Efrem Kolb D.O.
--- NOTE | 2022-11-02 18:51 | ED.HEATRA ---
HPI - Head Injury General Chief complaint: Head Injury <ROBIN Kennedy Last Filed: 11/03/22 03:54> Stated complaint: GLF <ROBIN Kennedy Last Filed: 11/03/22 03:54> Time Seen by Provider: 11/02/22 18:05 <ROBIN Kennedy Last Filed: 11/03/22 03:54> History of Present Illness HPI Narrative: 82-year-old female with a history of Parkinson's and dementia reports for evaluation via EMS in a c-collar for a head injury that occurred earlier this afternoon. Patient lives at home with her daughter who takes care of her. Patient's daughter was contacted who states she took the patient to the bathroom, the patient went to sit down on the toilet, missed the toilet and leaned forward, overcompensated and hit her head against the wall in front of her. She did not lose consciousness. Daughter states that the patient was not complaining of any symptoms before or after the fall. The patient states she had some dizziness prior to the fall but is no longer having dizziness. She is only complaining of head pain and neck pain since the fall. She denies chest pain or shortness of breath, abdominal pain, back pain or extremity injury. Patient does states she cannot feel me touch her on exam, however states this is her baseline and is not new since the fall. Daughter states patient's baseline is A&Ox1. <ROBIN Kennedy Last Filed: 11/03/22 03:54> Related Data Home medications: Home Medications Medication Instructions Recorded Confirmed quetiapine 100 mg tablet (Seroquel) 100 mg PO QHS 04/05/22 11/03/22 <ROBIN Kennedy Last Filed: 11/03/22 03:54> Allergies/Adverse reactions: Allergies Allergy/AdvReac Type Severity Reaction Status Date / Time haloperidol Allergy Severe Difficulty Verified 11/02/22 10:22 Breathing <ROBIN Kennedy Last Filed: 11/03/22 03:54> Review of Systems Review of Systems: CONSTITUTIONAL: Denies fever, chills EYES: Denies visual changes, redness, or discharge. ENT: Denies rhinorrhea, congestion, sore throat, or otalgia. CARDIOVASCULAR: Denies chest pain, palpitations, or edema. RESPIRATORY: Denies cough or dyspnea. GASTROINTESTINAL: Denies abdominal pain, nausea, vomiting, or diarrhea. GENITOURINARY: Denies dysuria or hematuria. SKIN: Denies rash or itching. MUSCULOSKELETAL: See HPI NEUROLOGIC: See HPI PSYCHIATRIC: Denies anxiety or depression. <Yolanda Ag PA-C - Last Filed: 11/03/22 03:54> [facility] Past Medical History Medical History: Medical History Anxiety and depression Breast cancer Cerebrovascular accident Dementia Hypertension Parkinsons disease <Yolanda Ag PA-C - Last Filed: 11/03/22 03:54> Surgical History Surgical History: Surgical History History of cholecystectomy By Dr. Concepcion on 07/13/22. History of lumpectomy <Yolanda Ag PA-C - Last Filed: 11/03/22 03:54> Family History Family History: Family History Other Glaucoma Hypertension <Yolanda Ag PA-C - Last Filed: 11/03/22 03:54> Social History Social History: Social History Social History: Surrogate medical decision maker: Leigh Maldonado, daughter. Code status: Full code. Smoking status: Never smoker Alcohol intake: never Substance use: never Substance use type: does not use Lack of Transportation: No Lack of Food: Never True Current Housing: I Have Housing Concerned About Future Housing: No Difficulty Paying Gas/Electric Bills: No Difficulty Paying for Meds: No Currently Unemployed: No Education: Trade/Vocational Certificate Difficulty w/ Childcare or Family Care: No Living arrangements: with family Additional living arrangemen
[2022-11-02 19:45] LABS: Basophils Percent Auto 0.3 % (0.2-1.2); Eosinophils Percent Auto 0.3 % (0-4.4); Hematocrit 38.3 % (37.0-47.0); Hemoglobin 12.1 g/dL (12.0-15.0); Immature Granulocyte Absolute 0.05 K/mm3 (0.00-0.031); Immature Granulocyte Percent A 0.4 % (0-0.5); Lymphocytes Absolute Auto 1.44 K/mm3 (0.9-3.2); Lymphocytes Percent Auto 11.9 % (18.3-44.2); Mean Corpuscular HGB Conc 31.6 g/dl (32-36); Mean Corpuscular Hemoglobin 27.2 pg (26-34); Mean Corpuscular Volume 86.1 fl (80-100); Mean Platelet Volume 9.2 fl (7.4-10.4); Monocytes Absolute Auto 0.6 K/mm3 (0.1-0.6); Monocytes Percent Auto 5.1 % (2.6-8.5); Neutrophils Absolute Auto 9.9 K/mm3 (1.3-6.7); Platelet Count Result 189 k/mm3 (150-375); Red Blood Count 4.45 M/mm3 (4.2-5.4); White Blood Count 12.1 K/mm3 (4.5-10.0)
[2022-11-02] MEDS: SODIUM CHLORIDE 0.9% IV 1,000 ML 999 ML IV CONT (19:50)
[2022-11-02 19:58] LABS: Alanine Aminotransferase 17 U/L (6-35); Albumin Level 3.9 g/dL (3.5-5.1); Alkaline Phosphatase 79 U/L (38-126); Anion Gap 2 mmol/L (8-16); Aspartate Amino Transferase 38 U/L (14-36); Bilirubin,Total 0.4 mg/dL (0.2-1.3); Blood Urea Nitrogen 10 mg/dL (7-17); Carbon Dioxide 29 mmol/L (22-30); Chloride 105 mmol/L (98-107); Estimated CRCL calculation 43 ml/min; Estimated Glomerular Filt Rate > 60; Glucose 111 mg/dL (65-110); Potassium 3.6 mmol/L (3.4-5.0); Sodium 136 mmol/L (137-145)
[2022-11-02 20:19] LABS: Troponin I 0.054 ng/mL (0.000-0.034)
[2022-11-02 22:22] VITALS: BP 186/91; PULSE 100
[2022-11-02 22:23] VITALS: BP 178/88; PULSE 100
[2022-11-02 22:33] LABS: Appearance Urine Clear (Clear); Bacteria Urine 3+ /hpf; Bilirubin Urine Negative (Negative); Blood Urine 1+ (Negative); Color Urine Yellow (Yellow); Glucose Urine UA Negative (Negative); Ketones Urine Trace mg/dL (Negative); Leukocyte Esterase Ur 2+ LEU/UL (Negative); Nitrate Urine Negative (Negative); Non Pathogenic Casts 0-2; Protein Urine Negative (Negative); RBC Urine 0-2 /hpf (0-2); Specific Grav Ur 1.007 (1.001-1.035); Squamous Epithelial Cell Urine Occasional /hpf (Few); Urobilinogen Urine 0.2 mg/dL (<2.0); WBC Urine 21-50 /hpf; pH Urine 6.5 (5.0-9.0)
[2022-11-02 22:43] LABS: Add Urine Microscopic? YES
[2022-11-02 23:30] LABS: Troponin I 0.063 ng/mL (0.000-0.034)
[2022-11-03] VITALS (15 sets, daily range): BP systolic 134–190; BP diastolic 67–83; PULSE 67–97; RESP 15–18; TEMP 36.5–37.2; O2SAT 98–100; BMI 17.0
--- NOTE | 2022-11-03 01:15 | PM.IMHP ---
H&P: HPI History of Present Illness Date/Time: 11/03/22 01:15 Chief Complaint: Fall Narrative: This is an 82-year-old female with past medical history significant for Parkinson's disease, Parkinson's dementia, stroke. Patient was brought to the emergency room after having a ground level fall while using the toilet, no loss of consciousness however patient did strike her forehead on the way down. History has been obtained mainly upon reviewing emergency room medical records patient usually is oriented times wants to person cannot provide any meaningful history. Patient was found to have a urinary tract infection. EXAMINATION: CT brain wo con DATE: 11/02/2022 18:59 INDICATION: Dementia. Parkinson's disease. Fall. TECHNIQUE: Computed tomography (CT) of the head was performed without intravenous contrast. The mA was adjusted according to patient size. Iterative reconstruction technique was employed. The dose-length product was 605.33 mGy-cm. COMPARISON: Head CT 04/05/2022 FINDINGS: There is diffuse brain volume loss. There is an old lacunar infarct in the right caudate nucleus. There is no intracranial hemorrhage, acute infarction, or abnormal intracranial mass lesion. There are scattered areas of low attenuation in the cerebral white matter, which is within normal limits for the patient's age. The ventricles are normal in size. The paranasal sinuses are clear. The orbits are normal. The mastoid air cells are normal. There is superior scalp soft tissue swelling. IMPRESSION: 1. Old lacunar infarct in the right caudate nucleus. EXAMINATION: XR chest 1V DATE: 11/02/2022 19:13 INDICATION: Fall. TECHNIQUE: A single frontal view of the chest was obtained. COMPARISON: Chest 2 views 01/18/2020, chest CT 07/27/2022 FINDINGS: There is mild atelectasis at left lung base. No pleural effusion or pneumothorax. The heart size is normal. Surgical clips in the right upper quadrant are likely from cholecystectomy. IMPRESSION: 1. Mild atelectasis at left lung base. Review of Systems Review of Systems: ROS unobtainable: Yes unobtainable due to medical condition ( dementia) [facility] Past Medical History Medical History Anxiety and depression Breast cancer Cerebrovascular accident Dementia Hypertension Parkinsons disease Surgical History Surgical History History of cholecystectomy By Dr. Concepcion on 07/13/22. History of lumpectomy Family History Family History Other Glaucoma Hypertension Social History Social History Social History: Surrogate medical decision maker: Leigh Maldonado, daughter. Code status: Full code. Smoking status: Never smoker Alcohol intake: never Substance use: never Substance use type: does not use Lack of Transportation: No Lack of Food: Never True Current Housing: I Have Housing Concerned About Future Housing: No Difficulty Paying Gas/Electric Bills: No Difficulty Paying for Meds: No Currently Unemployed: No Education: Trade/Vocational Certificate Difficulty w/ Childcare or Family Care: No Living arrangements: with family Additional living arrangements comments: Originally from the [facility]. She has 4 children. Lives with daughter Leigh. 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 Gender identity (if verbalized by the patient): Female Spiritual care concerns: No Meds Home Medications and Allergies Home Medications Medication Instructions Recorded Confirmed Type quetiapine 100 mg tablet (Seroquel) 100 mg PO QHS 04/05/22 11/03/22 History carbidopa ER 50 mg-levodopa 200 mg 50 - 200 tablet PO DAILY #90 tabs 11/02/22 11/03/22 Rx tablet,extended release m
--- NOTE | 2022-11-03 02:02 | ADMGEN ---
This patient, Debbie Trejo, was admitted to 2 Medical Room 242- @[id number]. Patient/family oriented to hospital policies and general routines including ID bracelet, bed and alarms, visiting hours, pain management, procedures, bathroom and other care routines, personal items, smoking policy, room service/diet, and visiting hours. Information on how to activate the Rapid Response Team has been discussed. Patient/Family are encouraged to report perceived risks to care and to ask questions if they do not understand what they are told or what they should do.
[2022-11-03] MEDS: HYDROmorphone HCL INJ (*CRX) 1 MG/ML SYR 0.5 MG IV PUSH (02:47)
[2022-11-03 02:50] LABS: Troponin I 0.079 ng/mL (0.000-0.034)
[2022-11-03] MEDS: hydrALAZINE HCL 20 MG/ML VIAL 10 MG IV PUSH (04:48)
[2022-11-03] MEDS: MEMANTINE 10 MG TABLET PO ×2 (08:31→16:16)
[2022-11-03] MEDS: CARBIDOPA/LEVODOPA 25/100 MG CR TABLET 2 TABLET PO (08:31)
--- NOTE | 2022-11-03 12:43 | WPDPN ---
Progress Note: A&P Assessment and Plan (1) Acute UTI: Code(s): N39.0 - Urinary tract infection, site not specified Status: Acute Assessment and Plan: admit to regular med tele started on Rocephin cultures in progress supportive care 11/03/2022 interval history: patient her self is unable to provider any ROS today her daughter is present in the room, patient has history of constipation and most likely straining on toilet resulting in vasovagal and fell, all the x-rays are negative for any acute injury. will give colace and Miralax, also patient has developed hemorrhoids, will give ointment, with constipation she has developed UTI being treated with cefriaxone, will have PT/OT evaluate the patient, will bebfit with SNF rehab. (2) Elevated troponin: Code(s): R77.8 - Other specified abnormalities of plasma proteins Status: Acute Assessment and Plan: continue to trend chest pain-free doubtful of acute coronary syndrome non [place] (3) Contusion of head: Qualifiers: Contusion of head detail: scalp Encounter type: initial encounter Qualified Code(s): S00.03XA - Contusion of scalp, initial encounter Code(s): S00.93XA - Contusion of unspecified part of head, initial encounter Status: Acute Assessment and Plan: supportive care (4) Parkinsonism: Code(s): G20 - Parkinson's disease Status: Acute Assessment and Plan: continue levodopa carbidopa (5) Fall: Code(s): W19.XXXA - Unspecified fall, initial encounter Status: Acute Assessment and Plan: MECHANICAL FALL PRECAUTIONS Subjective Date/time seen: 11/03/22 12:43 Interval history: Fall Narrative: ?This is an 82-year-old female with past medical history significant for Parkinson's disease, Parkinson's dementia,? stroke.? Patient was brought? to the emergency room after having a ground level fall while using the toilet, no loss of consciousness however patient did strike her forehead on the way down.? History has been obtained mainly upon reviewing emergency room medical records patient usually is oriented times wants to person cannot provide any meaningful history.? Patient was found to have a urinary tract infection. 11/03/2022 interval history: patient her self is unable to provider any ROS today her daughter is present in the room, patient has history of constipation and most likely straining on toilet resulting in vasovagal and fell, all the x-rays are negative for any acute injury. will give colace and Miralax, also patient has developed hemorrhoids, will give ointment, with constipation she has developed UTI being treated with cefriaxone, will have PT/OT evaluate the patient, will bebfit with SNF rehab. Review of Systems Review of Systems: ROS unobtainable: Yes unobtainable due to medical condition ( dementia) Exam Narrative: Elderly frail Patient is comfortable, NAD HEENT: eyes are clear and none icteric LUNGS: Normal respiratory effort ABD: Not distended Lower extremities: no edema SKIN: nonjaundiced Neuro: grossly intact. Objective Data Vital Signs Vital Signs: Vital Signs - 24 hr 11/02/22 17:21 11/02/22 22:22 11/02/22 22:23 Temperature 98.0 F Pulse Rate 84 100 100 Respiratory Rate 16 Blood Pressure 158/88 H 186/91 H 178/88 H Pulse Oximetry 98 Oxygen Delivery Room Air 11/03/22 00:23 11/03/22 01:25 11/03/22 01:45 Temperature 98.7 F Pulse Rate 77 76 97 Respiratory Rate 15 15 17 Blood Pressure 159/80 H 164/67 H 190/78 H Pulse Oximetry 100 100 100 Oxygen Delivery 11/03/22 03:00 11/03/22 05:25 11/03/22 05:33 Temperature 98.2 F 97.7 F Pulse Rate 80 67 Respiratory Rate 18 17 Blood Pressure 152/69 H 160/69 H Pulse Oximetry 100 99 Oxygen Delivery Room Air 11/03/22 02:23 11/03/22 04:00 11/03/22 08:02 Temperature Pulse Rate 81 68 73 Respiratory Rate Blood Pressure Pulse Oxime
[2022-11-03] MEDS: polyethylene glycoL 3350 17 GM POWD.PACK PO (13:11)
[2022-11-03] MEDS: DOCUSATE SODIUM 100 MG CAPSULE PO (20:55)
[2022-11-03] MEDS: QUEtiapine FUMARATE 100 MG TABLET PO (20:55)
[2022-11-04] VITALS (8 sets, daily range): BP systolic 134–156; BP diastolic 68–81; PULSE 72–98; RESP 16–18; TEMP 36.7–36.8; O2SAT 96–100
--- NOTE | 2022-11-04 | ECHO_ITS ---
Patient Info Name: Debbie Trejo Age: 82 years : 1940 Gender: Female Ht: 63 in Wt: 96 lbs BSA: 1.38 m2 HR: 72 bpm BP: 134 / 81 mmHg Heart Rhythm: Sinus Rhythm Technical Quality: Fair Exam Date: 11/04/2022 12:43 PM Exam Location: [facility] Card Pulmonary Patient Status: Inpatient Admit Date: 11/03/2022 Staff Ordering Physician: Kyle Mackay MD Compliance Officer: Briana Ventura RDCS Attending Provider: Irene Cadena MD Exam Type: CA echo doppler color flow Study Info Indications - elevated troponin Complete two-dimensional, color flow and Doppler transthoracic echocardiogram is performed with contrast to opacify the left ventricle and to improve the deliniation of the left ventricle endocardial borders. Summary 1. Definity contrast injected to improve visualization. 2. Left ventricular hypertrophy with hyperdynamic systolic function. 3. Mildly enlarged left atrium. 4. Calcified mitral valve annulus. 5. Mild aortic stenosis valve area 1.3 cm2. 6. Compared with echocardiogram done June of this year nothing has changed. Left Ventricle Left ventricular chamber dimension is normal. Left ventricular systolic function is hyperdynamic, estimated at >70%. There is moderate concentric increased left ventricular wall thickness. The left ventricular diastolic function is grade I diastolic dysfunction. Right Ventricle Right ventricular chamber dimension is normal. Left Atria Left atrial chamber dimension is moderately enlarged. Right Atria Right atrial chamber dimension is normal. Aortic Valve The aortic valve is not well visualized. There is mild aortic valve stenosis with a peak velocity of 286 cm/s, mean gradient of 16 mmHg, and aortic valve area of 1.4 cm2. There is trace aortic valve regurgitation. Pulmonic Valve The pulmonic valve is not well visualized. Mitral Valve The mitral valve has normal leaflets. There is trace mitral valve regurgitation. The mitral valve annulus is severely calcified. Tricuspid Valve The tricuspid valve leaflets are not well visualized. Pericardium/Pleural The pericardium appears normal. Aorta The aortic root size at the sinus of Valsalva is normal. Left Ventricular Outflow Tract Name Value Normal LVOT 2D LVOT Diameter 1.9 cm LVOT Doppler LVOT Peak Gradient 7 mmHg LVOT Mean Gradient 5 mmHg LVOT VTI 27 cm LVOT VTI/AV VTI Ratio 0.5 LVOT Stroke Volume 77 ml LVOT CO 6.7 l/min LVOT CI 4.8 l/min/m2 Pulmonic Valve Name Value Normal RVOT Doppler RVOT Peak Gradient 4 mmHg PV Doppler PV Peak Gradient 5 mmHg Mitral Valve
[2022-11-04 08:52] LABS: Troponin I 0.026 ng/mL (0.000-0.034)
[2022-11-04] MEDS: polyethylene glycoL 3350 17 GM POWD.PACK PO (09:10)
[2022-11-04] MEDS: MEMANTINE 10 MG TABLET PO ×2 (11:23→18:30)
[2022-11-04] MEDS: PHENYLEPH/MINERAL OIL/PETROLAT OINTMENT 57 GM 1 APPLIC RECTAL (11:23)
--- NOTE | 2022-11-04 11:44 | WPDPN ---
Progress Note: A&P Assessment and Plan (1) Acute UTI: Code(s): N39.0 - Urinary tract infection, site not specified Status: Acute Assessment and Plan: admit to regular med tele started on Rocephin cultures in progress supportive care 11/04/2022 interval history: patient her self is unable to provider any ROS today her daughter is present in the room, patient has history of constipation and most likely straining on toilet resulting in vasovagal and fell, all the x-rays are negative for any acute injury. will give colace and Miralax, also patient has developed hemorrhoids, will give ointment, with constipation she has developed UTI being treated with cefriaxone, patient does not complaints of CP however her trops are elevated, will contsult screw cutter and order cardiac echo. will have PT/OT evaluate the patient, will bebfit with SNF rehab. (2) Elevated troponin: Code(s): R77.8 - Other specified abnormalities of plasma proteins Status: Acute Assessment and Plan: continue to trend chest pain-free doubtful of acute coronary syndrome non [place] (3) Contusion of head: Qualifiers: Contusion of head detail: scalp Encounter type: initial encounter Qualified Code(s): S00.03XA - Contusion of scalp, initial encounter Code(s): S00.93XA - Contusion of unspecified part of head, initial encounter Status: Acute Assessment and Plan: supportive care (4) Parkinsonism: Code(s): G20 - Parkinson's disease Status: Acute Assessment and Plan: continue levodopa carbidopa (5) Fall: Code(s): W19.XXXA - Unspecified fall, initial encounter Status: Acute Assessment and Plan: MECHANICAL FALL PRECAUTIONS Subjective Date/time seen: 11/04/22 11:44 Interval history: Fall Narrative: ?This is an 82-year-old female with past medical history significant for Parkinson's disease, Parkinson's dementia,? stroke.? Patient was brought? to the emergency room after having a ground level fall while using the toilet, no loss of consciousness however patient did strike her forehead on the way down.? History has been obtained mainly upon reviewing emergency room medical records patient usually is oriented times wants to person cannot provide any meaningful history.? Patient was found to have a urinary tract infection. 11/04/2022 interval history: patient her self is unable to provider any ROS today her daughter is present in the room, patient has history of constipation and most likely straining on toilet resulting in vasovagal and fell, all the x-rays are negative for any acute injury. will give colace and Miralax, also patient has developed hemorrhoids, will give ointment, with constipation she has developed UTI being treated with cefriaxone, patient does not complaints of CP however her trops are elevated, will contsult screw cutter and order cardiac echo. will have PT/OT evaluate the patient, will bebfit with SNF rehab. Review of Systems Review of Systems: ROS unobtainable: Yes unobtainable due to medical condition ( dementia) Exam Narrative: Elderly frail Patient is comfortable, NAD HEENT: eyes are clear and none icteric LUNGS: Normal respiratory effort ABD: Not distended Lower extremities: no edema SKIN: nonjaundiced Neuro: grossly intact. Objective Data Vital Signs Vital Signs: Vital Signs - 24 hr 11/03/22 12:04 11/03/22 14:00 11/03/22 16:00 Temperature 97.9 F Pulse Rate 67 73 67 Respiratory Rate 18 Blood Pressure 134/71 Pulse Oximetry 99 Oxygen Delivery 11/03/22 20:50 11/03/22 20:00 11/03/22 20:00 Temperature 98.9 F Pulse Rate 76 74 Respiratory Rate 17 Blood Pressure 149/83 H Pulse Oximetry 99 Oxygen Delivery Room Air 11/04/22 00:00 11/04/22 04:00 11/04/22 05:25 Temperature 98.2 F Pulse Rate 88 73 72 Respiratory Rate 17 Blood Pressure 134/81 Pulse Oximetry 100
--- NOTE | 2022-11-04 13:51 | PM.CNCAR ---
Assessment and Plan Assessment and plan (1) Elevated troponin: Code(s): R77.8 - Other specified abnormalities of plasma proteins Status: Acute Assessment and Plan: Troponin levels initially mildly elevated at 0.054. 0.063, 0.079. Now negative. Unclear why troponin levels were drawn - she is not complaining of any chest pain (though she is a poor historian). EKG shows sinus rhythm with old anterior infarct that is unchanged from previous EKG, no acute ischemic changes. Doubt ACS. No further cardiac workup indicated. Cardiology will sign off please call with any questions. (2) Syncope: Code(s): R55 - Syncope and collapse Status: Acute Assessment and Plan: Unable to obtain history surrounding event that led to this hospitalization from patient due to her level of orientation, but based on previous documentation in the medical record this seems more consistent with loss of balance or ground level fall. Telemetry was reviewed and no pauses, bradycardia, or high degree AV blocks noted that would explain syncope. Continue to monitor on telemetry. Check orthostatic vital signs. History of Present Illness History of Present Illness Consult date/time: 11/04/22 13:52 Requesting physician: Kyle Mackay MD Consult reason: Other (elevated troponin, syncope) Reason For Visit: UTI/Elevated Troponin Narrative: Ms. Trejo is an 82 year old female with dementia, Parkinson's dementia, and a prior stroke who presents to the hospital following a fall at home. History has been obtained from the medical record as patient is alert and oriented x 1 and states she does not remember falling and is unsure why she is in the hospital. According to previous documentation she sustained a ground level fall at home while using the toilet. This event is described more as a loss of balance rather than a mechanical fall or syncopal episode. Reportedly had no loss of consciousness. She denies having any chest pain, shortness of breath, or palpitations. Currently resting comfortably in bed and has no complaints. Review of Systems Review of Systems: All systems reviewed & are unremarkable except as noted in HPI and below PMFSH Past Medical History Medical History Anxiety and depression Breast cancer Cerebrovascular accident Dementia Hypertension Parkinsons disease Surgical History Surgical History History of cholecystectomy By Dr. Concepcion on 07/13/22. History of lumpectomy Family History Family History Other Glaucoma Hypertension Social History Social History Social History: Surrogate medical decision maker: Leigh Maldonado, daughter. Code status: Full code. Smoking status: Never smoker Alcohol intake: never Substance use: never Substance use type: does not use Lack of Transportation: No Lack of Food: Never True Current Housing: I Have Housing Concerned About Future Housing: No Difficulty Paying Gas/Electric Bills: No Difficulty Paying for Meds: No Currently Unemployed: No Education: Trade/Vocational Certificate Difficulty w/ Childcare or Family Care: No Living arrangements: with family Additional living arrangements comments: Originally from the [facility]. She has 4 children. Lives with daughter Leigh. 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 Gender identity (if verbalized by the patient): Female Spiritual care concerns: No Meds Home Medications and Allergies Home Medications Medication Instructions Recorded Confirmed Type quetiapine 100 mg tablet (Seroquel) 100 mg PO QHS 04/05/22 11/03/22 History carbidopa ER 50 mg-levodopa 200 mg 50 - 200 tablet PO DAILY #90 t
[2022-11-04] MEDS: AMOXICILLIN 500 MG CAPSULE PO ×2 (14:03→21:22)
[2022-11-04] MEDS: CARBIDOPA/LEVODOPA 12.5/50 MG TABLET 1 TABLET PO ×3 (14:03→21:21)
--- NOTE | 2022-11-04 16:00 | PM.DS ---
DS: Discharge Diagnosis Discharge Diagnosis (1) Acute UTI: Code(s): N39.0 - Urinary tract infection, site not specified Status: Acute Assessment and Plan: admit to regular med tele started on Rocephin cultures in progress supportive care 11/04/2022 interval history: patient her self is unable to provider any ROS today her daughter is present in the room, patient has history of constipation and most likely straining on toilet resulting in vasovagal and fell, all the x-rays are negative for any acute injury. will give colace and Miralax, also patient has developed hemorrhoids, will give ointment, with constipation she has developed UTI being treated with cefriaxone, patient does not complaints of CP however her trops are elevated, will contsult circus trainer and order cardiac echo. will have PT/OT evaluate the patient, will bebfit with SNF rehab. 11/05/2022: History reviewed 82-year-old female presented after a ground level fall while using the toilet. No loss of consciousness. Did hit her head on her way down. CT head with oral lichen infarct with no acute findings. All other x-ray studies negative for acute injury. Found to have UTI treated with ceftriaxone has been switched to amoxicillin urine culture growing Enterococcus Sensitive to ampicillin. Mild troponin elevation with no chest pain and flat trajectory. Cardiology consulted. Telemetry with no high-grade AV blocks or pauses. Echo with left ventricular hypertrophy with hyperdynamic systolic function. Mild aortic stenosis. Unchanged compared to prior echocardiogram. PT OT evaluation pending. Family refused SNF placement await evaluation by PT OT (2) Elevated troponin: Code(s): R77.8 - Other specified abnormalities of plasma proteins Status: Acute Assessment and Plan: continue to trend chest pain-free doubtful of acute coronary syndrome non [place] (3) Contusion of head: Qualifiers: Contusion of head detail: scalp Encounter type: initial encounter Qualified Code(s): S00.03XA - Contusion of scalp, initial encounter Code(s): S00.93XA - Contusion of unspecified part of head, initial encounter Status: Acute Assessment and Plan: supportive care (4) Parkinsonism: Code(s): G20 - Parkinson's disease Status: Acute Assessment and Plan: continue levodopa carbidopa (5) Fall: Code(s): W19.XXXA - Unspecified fall, initial encounter Status: Acute Assessment and Plan: MECHANICAL FALL PRECAUTIONS DS: Summary Time Spent with Patient Time attestation: Total time spent providing and/or coordinating discharge services: Exam Narrative: Elderly frail Patient is comfortable, NAD HEENT: eyes are clear and none icteric LUNGS: Normal respiratory effort ABD: Not distended Lower extremities: no edema SKIN: nonjaundiced Neuro: grossly intact. DS: Data Data Completed and Pending Labs on day of discharge: Labs from last 24 hours 11/04/22 08:18 Troponin I 0.026 Preliminary micro results at discharge 11/02/22 22:22 Urine Culture - Preliminary Urine Clean Catch Enterococcus species Discharge Plan Discharge Attending physician on discharge: Walter Nazario Consulting providers: Yolanda Ag; Joann Leslie; Efrem Kolb; Evangelista Nuñez V.; Kyle Mackay; Phoenix Calderon Discharging Clinician: Walter Nazario Anticipated Discharge Date/Time: 11/06/22 11:36 Patient Disposition: Home Health Service Activity: as tolerated Diet: heart healthy Discharge Instructions: Per Care Coordination. Patient to have [facility] for RN/PT/OT eval and treat [phone]. Home Health will contact patient and family to schedule first visit. patient to follow up with her primary care provider and circus trainer as soon as possible, if any symptoms redevelop to go to nearest ER Patient Instructions: Antibiotic F
[2022-11-04] MEDS: QUEtiapine FUMARATE 100 MG TABLET PO (21:21)
[2022-11-04] MEDS: DOCUSATE SODIUM LIQ 100 MG/10 ML UDC PO (21:22)
[2022-11-05] VITALS: PULSE 95
[2022-11-05 04:29] VITALS: BP 147/68; PULSE 74; RESP 16; TEMP 36.6; O2SAT 96
[2022-11-05] MEDS: AMOXICILLIN 500 MG CAPSULE PO ×3 (06:17→20:21)
[2022-11-05] MEDS: MEMANTINE 10 MG TABLET PO ×2 (08:26→17:36)
[2022-11-05] MEDS: polyethylene glycoL 3350 17 GM POWD.PACK PO (08:27)
[2022-11-05] MEDS: DOCUSATE SODIUM LIQ 100 MG/10 ML UDC PO ×2 (08:27→20:21)
[2022-11-05] MEDS: CARBIDOPA/LEVODOPA 12.5/50 MG TABLET 1 TABLET PO ×4 (08:27→20:21)
--- NOTE | 2022-11-05 09:14 | PM.IMPN ---
Progress Note: A&P Assessment and Plan (1) Acute UTI: Code(s): N39.0 - Urinary tract infection, site not specified Status: Acute Assessment and Plan: admit to regular med tele started on Rocephin cultures in progress supportive care 11/04/2022 interval history: patient her self is unable to provider any ROS today her daughter is present in the room, patient has history of constipation and most likely straining on toilet resulting in vasovagal and fell, all the x-rays are negative for any acute injury. will give colace and Miralax, also patient has developed hemorrhoids, will give ointment, with constipation she has developed UTI being treated with cefriaxone, patient does not complaints of CP however her trops are elevated, will contsult car rental agency manager and order cardiac echo. will have PT/OT evaluate the patient, will bebfit with SNF rehab. 11/05/2022: History reviewed 82-year-old female presented after a ground level fall while using the toilet. No loss of consciousness. Did hit her head on her way down. CT head with oral lichen infarct with no acute findings. All other x-ray studies negative for acute injury. Found to have UTI treated with ceftriaxone has been switched to amoxicillin urine culture growing Enterococcus Sensitive to ampicillin. Mild troponin elevation with no chest pain and flat trajectory. Cardiology consulted. Telemetry with no high-grade AV blocks or pauses. Echo with left ventricular hypertrophy with hyperdynamic systolic function. Mild aortic stenosis. Unchanged compared to prior echocardiogram. PT OT evaluation pending. Family refused SNF placement await evaluation by PT OT (2) Elevated troponin: Code(s): R77.8 - Other specified abnormalities of plasma proteins Status: Acute Assessment and Plan: continue to trend chest pain-free doubtful of acute coronary syndrome non NC (3) Contusion of head: Qualifiers: Contusion of head detail: scalp Encounter type: initial encounter Qualified Code(s): S00.03XA - Contusion of scalp, initial encounter Code(s): S00.93XA - Contusion of unspecified part of head, initial encounter Status: Acute Assessment and Plan: supportive care (4) Parkinsonism: Code(s): G20 - Parkinson's disease Status: Acute Assessment and Plan: continue levodopa carbidopa (5) Fall: Code(s): W19.XXXA - Unspecified fall, initial encounter Status: Acute Assessment and Plan: MECHANICAL FALL PRECAUTIONS Subjective Date/time seen: 11/05/22 09:14 Interval history: Fall Narrative: ?This is an 82-year-old female with past medical history significant for Parkinson's disease, Parkinson's dementia,? stroke.? Patient was brought? to the emergency room after having a ground level fall while using the toilet, no loss of consciousness however patient did strike her forehead on the way down.? History has been obtained mainly upon reviewing emergency room medical records patient usually is oriented times wants to person cannot provide any meaningful history.? Patient was found to have a urinary tract infection. 11/04/2022 interval history: patient her self is unable to provider any ROS today her daughter is present in the room, patient has history of constipation and most likely straining on toilet resulting in vasovagal and fell, all the x-rays are negative for any acute injury. will give colace and Miralax, also patient has developed hemorrhoids, will give ointment, with constipation she has developed UTI being treated with cefriaxone, patient does not complaints of CP however her trops are elevated, will contsult car rental agency manager and order cardiac echo. will have PT/OT evaluate the patient, will bebfit with SNF rehab. 11/05/2022: History reviewed. 82-year-old female presented after a ground level fall while using toilet. No loss of consciousness. Patient did strike her forehead on the w
[2022-11-05] MEDS: PHENYLEPH/MINERAL OIL/PETROLAT OINTMENT 57 GM 1 APPLIC RECTAL (13:07)
[2022-11-05 14:00] VITALS: BP 121/66; PULSE 79; RESP 16; TEMP 36.4; O2SAT 99
[2022-11-05 19:27] VITALS: BP 139/76; PULSE 78; RESP 14; TEMP 36.8; O2SAT 99
[2022-11-05 20:00] VITALS: PULSE 78; RESP 14; O2SAT 99
[2022-11-05] MEDS: QUEtiapine FUMARATE 100 MG TABLET PO (20:21)
[2022-11-06 04:24] VITALS: BP 172/90; PULSE 77; RESP 14; TEMP 36.5; O2SAT 99
[2022-11-06] MEDS: MEMANTINE 10 MG TABLET PO (08:55)
[2022-11-06] MEDS: DOCUSATE SODIUM LIQ 100 MG/10 ML UDC PO (08:55)
[2022-11-06] MEDS: CARBIDOPA/LEVODOPA 12.5/50 MG TABLET 1 TABLET PO ×2 (08:55→13:22)
[2022-11-06] MEDS: polyethylene glycoL 3350 17 GM POWD.PACK PO (08:55)
--- NOTE | 2022-11-06 11:37 | PM.DS ---
DS: Admitting Diagnosis Discharge Date 02/13 Admitting Diagnosis Fall DS: Discharge Diagnosis Discharge Diagnosis (1) Acute UTI: Code(s): N39.0 - Urinary tract infection, site not specified Status: Acute (2) Elevated troponin: Code(s): R77.8 - Other specified abnormalities of plasma proteins Status: Acute (3) Contusion of head: Qualifiers: Contusion of head detail: scalp Encounter type: initial encounter Qualified Code(s): S00.03XA - Contusion of scalp, initial encounter Code(s): S00.93XA - Contusion of unspecified part of head, initial encounter Status: Acute (4) Parkinsonism: Code(s): G20 - Parkinson's disease Status: Acute (5) Fall: Code(s): W19.XXXA - Unspecified fall, initial encounter Status: Acute DS: Summary Hospital Course Hospital Course: 82-year-old female presented after a ground level fall while using the toilet.? No loss of consciousness.? Did hit her head on her way down.? CT head with oral lacunar infarct with no acute findings.? All other x-ray studies negative for acute injury.? Found to have UTI treated with ceftriaxone has been switched to amoxicillin urine culture growing Enterococcus? Sensitive to ampicillin.? Mild troponin elevation with no chest pain and flat trajectory.? Cardiology consulted.? Telemetry with no high-grade AV blocks or pauses.? Echo with left ventricular hypertrophy with hyperdynamic systolic function.? Mild aortic stenosis.? Unchanged compared to prior echocardiogram.? PT OT evaluation pending however? Family refused SNF placement and home health has been arranged. Time Spent with Patient Time attestation: Total time spent providing and/or coordinating discharge services: Exam Narrative: Elderly frail Patient is comfortable, NAD HEENT: eyes are clear and none icteric LUNGS: Normal respiratory effort ABD: Not distended Lower extremities: no edema SKIN: nonjaundiced Neuro: grossly intact. DS: Data Data Completed and Pending Completed studies during hospitalization: Exam Type: ? ? CA echo doppler color flow Study Info Indications ?? ? - elevated troponin Complete two-dimensional, color flow and Doppler transthoracic echocardiogram is performed with contrast to opacify the left ventricle and to improve the deliniation of the left ventricle endocardial borders. Account #: ? ? [id number] Summary ? 1. Definity contrast injected to improve visualization. ? 2. Left ventricular hypertrophy with hyperdynamic systolic function. ? 3. Mildly enlarged left atrium. ? 4. Calcified mitral valve annulus. ? 5. Mild aortic stenosis valve area 1.3 cm2. ? 6. Compared with echocardiogram done June of this year nothing has changed. Left Ventricle ? Left ventricular chamber dimension is normal. ? Left ventricular systolic function is hyperdynamic, estimated at >70%. ? There is moderate concentric increased left ventricular wall thickness. ? The left ventricular diastolic function is grade I diastolic dysfunction. Right Ventricle ? Right ventricular chamber dimension is normal. Left Atria ? Left atrial chamber dimension is moderately enlarged. Right Atria ? Right atrial chamber dimension is normal. Aortic Valve ? The aortic valve is not well visualized. ? There is mild aortic valve stenosis with a peak velocity of 286 cm/s, mean gradient of 16 mmHg, and aortic valve area of 1.4 cm2. ? There is trace aortic valve regurgitation. Pulmonic Valve ? The pulmonic valve is not well visualized. Mitral Valve ? The mitral valve has normal leaflets. ? There is trace mitral valve regurgitation. ? The mitral valve annulus is severely calcified. Tricuspid Valve ? The tricuspid valve leaflets are not well visualized. Pericardium/Pleural ? The pericardium appears normal. Aorta ? The aortic root size at the sinus of Valsalva is normal. Imaging Radiologist's impression: ITS Impressio
[2022-11-06] MEDS: PHENYLEPH/MINERAL OIL/PETROLAT OINTMENT 57 GM 1 APPLIC RECTAL (13:22)
[2022-11-06] MEDS: AMOXICILLIN 500 MG CAPSULE PO (13:22)
[2022-11-06 14:00] VITALS: BP 130/68; PULSE 76; RESP 16; TEMP 36.4; O2SAT 98
[2022-11-06 14:33] LABS: Basophils Absolute Auto 0.1 K/mm3 (0.0-0.1); Basophils Percent Auto 0.6 % (0.2-1.2); Eosinophils Absolute Auto 0.2 K/mm3 (0-0.3); Eosinophils Percent Auto 2.1 % (0-4.4); Hematocrit 43.6 % (37.0-47.0); Hemoglobin 13.6 g/dL (12.0-15.0); Immature Granulocyte Absolute 0.03 K/mm3 (0.00-0.031); Immature Granulocyte Percent A 0.3 % (0-0.5); Lymphocytes Absolute Auto 2.16 K/mm3 (0.9-3.2); Lymphocytes Percent Auto 23.3 % (18.3-44.2); Mean Corpuscular HGB Conc 31.2 g/dl (32-36); Mean Corpuscular Hemoglobin 27.3 pg (26-34); Mean Corpuscular Volume 87.4 fl (80-100); Mean Platelet Volume 9.1 fl (7.4-10.4); Monocytes Absolute Auto 0.6 K/mm3 (0.1-0.6); Monocytes Percent Auto 6.8 % (2.6-8.5); Neutrophils Absolute Auto 6.2 K/mm3 (1.3-6.7); Neutrophils Percent Auto 66.9 % (45.5-73.1); Platelet Count Result 274 k/mm3 (150-375); Red Blood Count 4.99 M/mm3 (4.2-5.4); Red Cell Distribution Width 14.2 % (11.5-14.5); White Blood Count 9.3 K/mm3 (4.5-10.0)
[2022-11-06 14:47] LABS: Alanine Aminotransferase 16 U/L (6-35); Alkaline Phosphatase 71 U/L (38-126); Anion Gap 12 mmol/L (8-16); Aspartate Amino Transferase 47 U/L (14-36); Bilirubin,Total 0.5 mg/dL (0.2-1.3); Blood Urea Nitrogen 10 mg/dL (7-17); Calcium 9.3 mg/dL (8.4-10.2); Carbon Dioxide 21 mmol/L (22-30); Chloride 106 mmol/L (98-107); Estimated CRCL calculation 42 ml/min; Estimated Glomerular Filt Rate > 60; Glucose 124 mg/dL (65-110); Magnesium 2.4 mg/dL (1.6-2.3); Sodium 139 mmol/L (137-145)
== END 2022-11-06 15:30 | disposition home health service (06) ==
LOC: ANHED 11-03 00:25 → ANH2MED 11-03 01:17
PROVIDERS: Family Medicine; Admitting Provider Internal Medicine; Emergency Provider Physician Assistant; PCP Physician Assistant; Visit Provider Internal Medicine
DX: N39.0 Urinary tract infection, site not specified (principal); B95.2 Enterococcus as the cause of diseases classified elsewhere; R77.8 Other specified abnormalities of plasma proteins; S00.03XA Contusion of scalp, initial encounter; W18.39XA Other fall on same level, initial encounter; Y93.89 Activity, other specified; Y92.002 Bathroom of unspecified non-institutional (private) residence as the place of occurrence of the external cause; G20 Parkinson's disease; F02.80 Dementia in other diseases classified elsewhere, unspecified severity, without behavioral disturbance, psychotic disturbance, mood disturbance, and anxiety; F41.9 Anxiety disorder, unspecified; F32.A Depression, unspecified; I10 Essential (primary) hypertension; R94.31 Abnormal electrocardiogram [ECG] [EKG]; M47.812 Spondylosis without myelopathy or radiculopathy, cervical region; M16.0 Bilateral primary osteoarthritis of hip; J98.11 Atelectasis; Z79.899 Other long term (current) drug therapy; Z86.73 Personal history of transient ischemic attack (TIA), and cerebral infarction without residual deficits
CPT/HCPCS: 36415; 70450; 71045; 72125; 73521; 80053; 81001; 83735; 84484; 85025; 87086; 87147; 87181; 87186; 93005; 93306; 96361; 96365; 96375; 97162; 97165; 97535; 99285; A9270; G0378; J0360; J0696; J1170; J7030

== ENCOUNTER 2023-01-12 15:50 | Emergency (ER) | payer MEDICARE, SELFPAY ==
--- NOTE | ~2023-01-12 | XR_ITS ---
XR chest 1V portable DATE: 01/12/2023 19:28 INDICATION: Cough, shortness of breath. Bladder has Covid. TECHNIQUE: Portable AP views on 01/12/2023 at 1911 hours COMPARISON: 11/02/2022 AP chest FINDINGS: Cardiomegaly. Aortic calcification and unfolding. No hilar or mediastinal enlargement. No pulmonary infiltrate or consolidation, pleural effusion or pulmonary vascular congestion or pneumo thorax. Diffuse osteopenia. Degenerative disc disease of the cervical spine. Levoscoliosis and mild degenerative spurring of the thoracic spine. Surgical clips, right upper quadrant, likely due to cholecystectomy. IMPRESSION: Cardiomegaly, aortic atherosclerosis No active pulmonary disease Osteopenia Reviewed, dictated and finalized at location A.
[2023-01-12 15:54] VITALS: BP 128/78; PULSE 78; RESP 16; TEMP 36.5; O2SAT 97
[2023-01-12 18:01] LABS: Influenza A QL RT-PCR Negative (Negative); Influenza B QL RT-PCR Negative (Negative); SARS-CoV-2 RNA PCR Positive (Negative)
[2023-01-12 18:35] VITALS: BP 172/75; PULSE 72; RESP 18; O2SAT 100
--- NOTE | 2023-01-12 19:04 | ED.URI ---
HPI - URI/Sore Throat General Chief Complaint: Upper Respiratory Infection Stated Complaint: covid like symptoms Time Seen by Provider: 01/12/23 18:36 History of Present Illness HPI Narrative: Patient is an 82-year-old female presenting with shortness of breath. Patient is A&O x1 at baseline due to dementia. Family reports that they have COVID and the patient has had a cough so they brought her in to be checked. Currently, she denies complaints. States her entire family is in [place]. Related Data Home Medications Medication Instructions Recorded Confirmed quetiapine 100 mg tablet (Seroquel) 100 mg PO QHS 04/05/22 11/14/22 Allergies Allergy/AdvReac Type Severity Reaction Status Date / Time haloperidol Allergy Severe Difficulty Verified 01/12/23 18:39 Breathing Review of Systems Review of Systems: All systems reviewed & are unremarkable except as noted in HPI and below PMFSH Past Medical History Medical History Anxiety and depression Breast cancer Cerebrovascular accident Dementia Hypertension Parkinsons disease Surgical History Surgical History History of cholecystectomy By Dr. Concepcion on 07/13/22. History of lumpectomy Family History Family History Other Glaucoma Hypertension Social History Social History Social History: Surrogate medical decision maker: Leigh Maldonado, daughter. Code status: Full code. Smoking status: Never smoker Alcohol intake: never Substance use: never Substance use type: does not use Lack of Transportation: No Lack of Food: Never True Current Housing: I Have Housing Concerned About Future Housing: No Difficulty Paying Gas/Electric Bills: No Difficulty Paying for Meds: No Currently Unemployed: No Education: Trade/Vocational Certificate Difficulty w/ Childcare or Family Care: No Living arrangements: with family Additional living arrangements comments: Originally from the [facility]. She has 4 children. Lives with daughter Leigh. 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 Gender identity (if verbalized by the patient): Female Spiritual care concerns: No Exam Narrative: GENERAL: Elderly female laying in bed in no acute distress HEAD: Normocephalic, atraumatic. EYES: PERRLA and EOMI. ENT: Mucous membranes moist. NECK: Supple. CHEST: Clear to auscultation. No respiratory distress. HEART: Regular rate and rhythm. ABDOMEN: Soft, nontender, nondistended EXTREMITIES: No edema. SKIN: Warm, dry, no rash. NEURO: Alert and oriented x1 which is baseline PSYCH: Normal affect Course Vital Signs Vital signs: Vital Signs Temperature 97.7 F 01/12/23 15:54 Pulse Rate 78 01/12/23 15:54 Respiratory Rate 16 01/12/23 15:54 Blood Pressure 128/78 01/12/23 15:54 Pulse Oximetry 97 01/12/23 15:54 Oxygen Delivery Room Air 01/12/23 15:54 Temperature 97.7 F 01/12/23 15:54 Pulse Rate 67 01/12/23 20:15 Respiratory Rate 21 H 01/12/23 20:15 Blood Pressure 116/75 01/12/23 20:15 Pulse Oximetry 99 01/12/23 20:15 Oxygen Delivery Room Air 01/12/23 18:35 MDM - URI/Sore Throat MDM Narrative Medical decision making narrative: Patient is an 82-year-old female presenting with cough and mild shortness of breath in the setting of multiple family members having COVID-19. Vitals here are stable. She is saturating 97 to 100% on room air. Exam is remarkable for the above. Patient is positive for COVID-19 today. Chest x-ray without acute abnormalities. She is tolerating p.o. intake. Feel she is safe for outpatient management. Discussed appropriate supportive care with the patient's daughter. Voices understanding
--- NOTE | 2023-01-12 19:11 | PC.NURSE ---
This RN assumed care of patient. This RN took patient report from MALIKA Osuna.
[2023-01-12 20:15] VITALS: BP 116/75; PULSE 67; RESP 21; O2SAT 99
== END 2023-01-12 20:15 | disposition home or self-care (01) ==
PROVIDERS: Physician Assistant; Emergency Provider Emergency Medicine; PCP Physician Assistant
DX: U07.1 COVID-19 (principal); F03.90 Unspecified dementia, unspecified severity, without behavioral disturbance, psychotic disturbance, mood disturbance, and anxiety; I10 Essential (primary) hypertension; G20 Parkinson's disease; F41.9 Anxiety disorder, unspecified; F32.A Depression, unspecified; Z86.73 Personal history of transient ischemic attack (TIA), and cerebral infarction without residual deficits; Z85.3 Personal history of malignant neoplasm of breast; Z90.49 Acquired absence of other specified parts of digestive tract; M85.88 Other specified disorders of bone density and structure, other site
CPT/HCPCS: 71045; 87636; 99283

== ENCOUNTER 2023-02-15 11:54 | Emergency (ER) | payer MEDICARE, SELFPAY ==
--- NOTE | ~2023-02-15 | XR_ITS ---
XR hip RT 2V w AP pelvis 02/15/2023 12:55 Indication: Right hip pain Procedure: 3 views right hip including AP pelvis Comparison: 11/02/2022 Findings: No fracture, subluxation or dislocation. Osteopenia. There is anatomic alignment. There is a large amorphous calcification in the left pelvis, consistent with uterine fibroid. Impression: 1: No acute bone or joint abnormality. Reviewed, dictated and finalized at location B. Impression: 1: No acute bone or joint abnormality.
--- NOTE | ~2023-02-15 | CT_ITS ---
EXAMINATION: CT knee RT wo con DATE: 02/15/2023 15:12 INDICATION: Right knee pain TECHNIQUE: High resolution computed tomography (CT) of the right knee was performed without intraveno us contrast. Additional sagittal and coronal reconstructions were performed. Automated exposure contr ol and iterative reconstruction technique were employed. The dose-length product was 549.57 mGy-cm. COMPARISON: Right knee radiographs dated 02/15/2023 FINDINGS: Bone alignment is normal. No fracture. Chondrocalcinosis in the medial and lateral compartments of th e knee. Tricompartmental osteoarthritis with mild joint space narrowing at the medial and patellofemo ral compartments of the knee on the current study and with mild lateral compartment joint space narro wing evident on the prior radiographs. Soft tissues are unremarkable with no evident soft tissue swel ling and with no knee joint effusion. IMPRESSION: 1. 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 No joint effusion or acute osseous abnorma lity. Reviewed, dictated and finalized at location A. IMPRESSION: 1. 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 No joint effusion or acute osseous abnormality.
--- NOTE | ~2023-02-15 | XR_ITS ---
XR knee RT 3V 02/15/2023 12:55 Indication: Right knee pain Procedure: 3 views right knee Comparison: No prior studies for comparison. Findings: No fracture, subluxation or dislocation. Mild osteoarthritis. There is chondrocalcinosis. O steopenia. Impression: 1: No acute bone or joint abnormality. Reviewed, dictated and finalized at location B. Impression: 1: No acute bone or joint abnormality.
[2023-02-15 12:13] VITALS: BP 199/74; PULSE 72; RESP 15; O2SAT 98
--- NOTE | 2023-02-15 12:27 | ED.FALL ---
HPI - Fall General Chief Complaint: Fall Stated Complaint: R knee pain Time Seen by Provider: 02/15/23 11:56 History of Present Illness HPI Narrative: 82-year-old female present emergency department for evaluation of right leg pain. Patient does have Parkinson's and dementia. Patient has been ANO x1 at her baseline. Family denies any witnessed fall. Family states that the patient has had decreased mobility on the right leg today. Related Data Home Medications Medication Instructions Recorded Confirmed quetiapine 100 mg tablet (Seroquel) 100 mg PO QHS 04/05/22 11/14/22 Allergies Allergy/AdvReac Type Severity Reaction Status Date / Time haloperidol Allergy Severe Difficulty Verified 01/12/23 18:39 Breathing Review of Systems Review of Systems: All systems reviewed & are unremarkable except as noted in HPI and below PMFSH Past Medical History Medical History Anxiety and depression Breast cancer Cerebrovascular accident Dementia Hypertension Parkinsons disease Surgical History Surgical History History of cholecystectomy By Dr. Concepcion on 07/13/22. History of lumpectomy Family History Family History Other Glaucoma Hypertension Social History Social History Social History: Surrogate medical decision maker: Leigh Maldonado, daughter. Code status: Full code. Smoking status: Never smoker Alcohol intake: never Substance use: never Substance use type: does not use Lack of Transportation: No Lack of Food: Never True Current Housing: I Have Housing Concerned About Future Housing: No Difficulty Paying Gas/Electric Bills: No Difficulty Paying for Meds: No Currently Unemployed: No Education: Trade/Vocational Certificate Difficulty w/ Childcare or Family Care: No Living arrangements: with family Additional living arrangements comments: Originally from the [facility]. She has 4 children. Lives with daughter Leigh. 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 Gender identity (if verbalized by the patient): Female Spiritual care concerns: No Exam Narrative: APPEARANCE: Well appearing, no pain, no distress, well-nourished. HEAD: normocephalic, atraumatic. EYES: PERRLA/EOMI, conjunctivae clear. NOSE: Normal no drainage NECK: Supple. No adenopathy, no masses. RESPIRATORY: Airway patent, respirations nonlabored. Clear to auscultation bilaterally, no rales, rhonchi, wheezing. CARDIOVASCULAR: Regular rate and rhythm without murmurs rubs or gallops. ABDOMINAL: Soft, nontender, nondistended, normal bowel sounds MUSCULOSKELETAL: Moves all extremities. Right hip and right knee pain with ecchymosis on lower leg NEURO: Alert. Cranial nerves II through XII intact. Grossly intact SKIN: Warm, dry. Normal Color Course Course Emergency Course: 82-year-old female presenting to the ED for evaluation of right knee pain. Patient's x-rays of the right hip and right knee were negative. CT of right knee showed no acute abnormality. Patient is afebrile with a leukocytosis of 11. Patient did have a an elevated lactic acid at 3.4. Patient was treated with IV fluids. Patient was able to transfer at her baseline. Patient does not ambulate. Patient is primarily transported by wheelchair. Family was comfortable with the plan for discharge home. Vital Signs Vital signs: Vital Signs Pulse Rate 72 02/15/23 12:13 Respiratory Rate 15 02/15/23 12:13 Blood Pressure 199/74 H 02/15/23 12:13 Pulse Oximetry 98 02/15/23 12:13 Pulse Rate 80 02/15/23 16:05 Respiratory Rate 18 02/15/23 16:05 Blood Pressure 187/88 H 02/15/23 16:05 Pulse Oximetry 100 02/15/23 16:05
[2023-02-15 13:32] LABS: Basophils Absolute Auto 0.1 K/mm3 (0.0-0.1); Basophils Percent Auto 0.5 % (0.2-1.2); Eosinophils Absolute Auto 0.2 K/mm3 (0-0.3); Eosinophils Percent Auto 1.6 % (0-4.4); Hematocrit 40.6 % (37.0-47.0); Hemoglobin 12.8 g/dL (12.0-15.0); Immature Granulocyte Absolute 0.06 K/mm3 (0.00-0.031); Immature Granulocyte Percent A 0.5 % (0-0.5); Lymphocytes Absolute Auto 2.85 K/mm3 (0.9-3.2); Lymphocytes Percent Auto 25.8 % (18.3-44.2); Mean Corpuscular HGB Conc 31.5 g/dl (32-36); Mean Corpuscular Hemoglobin 27.8 pg (26-34); Mean Corpuscular Volume 88.3 fl (80-100); Mean Platelet Volume 9.8 fl (7.4-10.4); Monocytes Absolute Auto 0.9 K/mm3 (0.1-0.6); Monocytes Percent Auto 8.4 % (2.6-8.5); Neutrophils Percent Auto 63.2 % (45.5-73.1); Platelet Count Result 236 k/mm3 (150-375); Red Cell Distribution Width 14.3 % (11.5-14.5)
[2023-02-15 13:41] LABS: Lactic Acid Reflex 3.4 mmol/L (0.7-2.0)
[2023-02-15 13:42] LABS: Alanine Aminotransferase 9 U/L (6-35); Albumin Level 4.1 g/dL (3.5-5.1); Alkaline Phosphatase 106 U/L (38-126); Anion Gap 9 mmol/L (8-16); Aspartate Amino Transferase 26 U/L (14-36); Bilirubin,Total 1.1 mg/dL (0.2-1.3); Blood Urea Nitrogen 7 mg/dL (7-17); Calcium 9.4 mg/dL (8.4-10.2); Carbon Dioxide 28 mmol/L (22-30); Chloride 106 mmol/L (98-107); Estimated CRCL calculation 48 ml/min; Estimated Glomerular Filt Rate > 60; Glucose 111 mg/dL (65-110); Potassium 3.3 mmol/L (3.4-5.0); Sodium 143 mmol/L (137-145)
[2023-02-15 13:44] LABS: Prothrombin Time 13.5 Seconds (11.1-14.7)
[2023-02-15 13:45] LABS: Partial Thromboplastin Time 44.4 SECONDS (22.3-36.8)
[2023-02-15 16:05] VITALS: BP 187/88; PULSE 80; RESP 18; O2SAT 100
[2023-02-15 16:29] LABS: Reflex Lactic Acid Yes or No Add Lactic
== END 2023-02-15 16:49 | disposition home or self-care (01) ==
PROVIDERS: Emergency Provider Emergency Medicine; PCP Physician Assistant
DX: M79.604 Pain in right leg (principal); G20.A1 Parkinson's disease without dyskinesia, without mention of fluctuations; F03.90 Unspecified dementia, unspecified severity, without behavioral disturbance, psychotic disturbance, mood disturbance, and anxiety; I10 Essential (primary) hypertension; F41.9 Anxiety disorder, unspecified; F32.A Depression, unspecified; M17.11 Unilateral primary osteoarthritis, right knee; Z85.3 Personal history of malignant neoplasm of breast; Z86.73 Personal history of transient ischemic attack (TIA), and cerebral infarction without residual deficits; Z90.49 Acquired absence of other specified parts of digestive tract
CPT/HCPCS: 36415; 73502; 73562; 73700; 80053; 83605; 85025; 85610; 85730; 99284

== ENCOUNTER 2024-01-18 09:19 | Outpatient (CLI) | payer MEDICARE, SELFPAY ==
[2024-01-18 10:14] LABS: Basophils Absolute Auto 0.1 K/mm3 (0.0-0.1); Basophils Percent Auto 0.7 % (0.2-1.2); Eosinophils Absolute Auto 0.2 K/mm3 (0-0.3); Eosinophils Percent Auto 2.8 % (0-4.4); Hematocrit 43.5 % (37.0-47.0); Hemoglobin 13.2 g/dL (12.0-15.0); Immature Granulocyte Absolute 0.03 K/mm3 (0.00-0.031); Immature Granulocyte Percent A 0.4 % (0-0.5); Lymphocytes Absolute Auto 2.43 K/mm3 (0.9-3.2); Lymphocytes Percent Auto 29.1 % (18.3-44.2); Mean Corpuscular HGB Conc 30.3 g/dl (32-36); Mean Corpuscular Volume 89.1 fl (80-100); Mean Platelet Volume 9.9 fl (7.4-10.4); Monocytes Absolute Auto 0.5 K/mm3 (0.1-0.6); Monocytes Percent Auto 5.7 % (2.6-8.5); Neutrophils Absolute Auto 5.1 K/mm3 (1.3-6.7); Neutrophils Percent Auto 61.3 % (45.5-73.1); Platelet Count Result 153 k/mm3 (150-375); Red Blood Count 4.88 M/mm3 (4.2-5.4); Red Cell Distribution Width 14.7 % (11.5-14.5); White Blood Count 8.4 K/mm3 (4.5-10.0)
[2024-01-18 10:30] LABS: Alanine Aminotransferase 9 U/L (6-35); Albumin Level 4.6 g/dL (3.5-5.1); Alkaline Phosphatase 86 U/L (38-126); Anion Gap 11 mmol/L (4-12); Aspartate Amino Transferase 38 U/L (14-36); Bilirubin,Total 0.6 mg/dL (0.2-1.3); Blood Urea Nitrogen 18 mg/dL (7-17); Calcium 9.7 mg/dL (8.4-10.2); Carbon Dioxide 26 mmol/L (22-30); Chloride 103 mmol/L (98-107); Estimated Glomerular Filt Rate > 60; Glucose 105 mg/dL (65-110); Sodium 140 mmol/L (137-145)
[2024-01-18 11:36] LABS: Folic Acid > 20.0 ng/mL (2.76->20)
[2024-01-22 10:19] LABS: Vitamin D 1,25 (OH)2 Total 20 pg/mL (18-72); Vitamin D2 1,25 (OH)2 <8 pg/mL; Vitamin D3 1,25 (OH)2 20 pg/mL
== END 2024-01-18 09:20 | disposition home or self-care (01) ==
LOC: ANHLAB 09:40
PROVIDERS: PCP Internal Medicine; Referring Provider Psychiatry & Neurology Neurology; Visit Provider Internal Medicine
DX: B35.1 Tinea unguium (principal); E55.9 Vitamin D deficiency, unspecified; G30.9 Alzheimer's disease, unspecified; F02.80 Dementia in other diseases classified elsewhere, unspecified severity, without behavioral disturbance, psychotic disturbance, mood disturbance, and anxiety; G20.C Parkinsonism, unspecified
CPT/HCPCS: 36415; 80053; 82607; 82652; 82746; 83921; 85025

== ENCOUNTER 2024-08-16 07:25 | Emergency (ER) | payer MEDICARE, SELFPAY ==
--- OUTSIDE RECORDS SUMMARY | 2024-08-16 07:29 | XMS_ITS | Continuity of Care Document ---
Author Organization [facility] Address [address] [place] [address] utive [facility] [address] [place] [address] Phone Care Team Providers Care Glaze Wiper Name Role Phone Polly Garsia Unavailable Unavailable Procedures Procedure Date Eye Exam, New Patient Advance Directives Directive Yes / No Effective Date File Name No Information Encounters Encounter Description Practice Location Reason(s) For Visit Diagnoses Date Provider Providers Copied on Encounter [facility], [address], [place], [place], [id number], [place] tel:[phone] [facility] No Information [phone] Sun Matias. [address] , [address], [place], [address], [place]. tel:[phone] Family History Family Member Type Diagnosis Age At Onset No Information Payers Payer name Insurance type Covered democrat ID Authoriza tion(s) [place] [id number] Social History Type Description Quantity Date Captured Comments Sex Female Smoking Status No Information Chief Complaint And Reason For Visit No Information Reason For Referral Reason For Referral No Information History Of Present Illness Encounter Date Complaint History Of Prese nt Illness No Information Functional Status Date Functional Assessmen t No Information Instructions Date Instruction Additional Infor mation No Information Assessments Type Assessment Date No Information Patient Care Teams Name Effective Dates (start - stop) Status Members No Information
--- OUTSIDE RECORDS SUMMARY | 2024-08-16 07:29 | XMS_ITS | Clinical Summary ---
Author Organization [facility] Address [address] [facility] [place] [address] Care Team Providers Care Health Companion Name Role Phone Antony Burger PA-C Primary Care Provide r Source Comments [facility],non-owned Affiliates and Associated Physician Practices is amultiple site organization consisting of ambulatory clinics and hospital sitesin [place], [place], [place] and [place]. This disclosure is being madepursuant to the Care Everywhere program and may not contain all information available regarding this patient. Last updated 18.[facility] Allergies Active Allergy Reactions Criticality Noted Date Comments Haldol Decanoate Unknown 03/31/2023 reported by daughter, 03/31/23 Medications * Be aware that medications may not be up to date on this document. Alwaysverify current medications with the patient. carbidopa-levod opa CR (Sinemet CR) 50-200 MG tabletIndicatio ns:Parkinson's Disease Take 1 tablet by mouth once daily. Indications: Parkinson's Disease 2 Active QUEtiapine (SEROquel) 50 MG tabletIndicatio ns:Behavioral Disorders associated with Dementia Take 2 tablets by mouth at bedtime. Indications: Behavioral Disorders associated with Dementia 2 Active acetaminophen CR (Tylenol 8 Hour) 650 MG tabletIndicatio ns:Pain Take 2 tablets by mouth every 8 hours as needed for Pain. Indications: Pain 3 Active Social History Tobacco Use Types Packs/Day Years Used Date Smoking Tobacco: Never Assessed OASIS D0700: Social Isolation Answer Da te Recorded Frequency of experiencing lo neliness or isolation Patient unable to respond 05/25/2023 OASIS A1250: Transportation Answer Date Recorded Lack of Transportation (Medical) No 05/25/2023 Lack of Transportation (Non-Medical) No 05/25/2023 Patient Unable or Declines to Respond No 05/25/2023 OASIS B1300: Health Literacy Answer Grabiel e Recorded Frequency of needing help to read materials from doctor or pharmacy Never 05/25/2023 Comments Unknown Sex and Gender Information Value Date Recorded Sex Assigned at Not on file Legal Sex Female 7:46 AM CDT Gender Identity Not on file Sexual Orientation Not on file Last Filed Vital Signs Vital Sign Reading Time Taken Comments Blood Pressure 112/68 05/16/2023 2:02 PM SHELLFISH WEIGHER Pulse 68 05/16/2023 2:02 PM SHELLFISH WEIGHER Temperature 36.3 C (97.4 F) 05/16/2023 2:02 PM SHELLFISH WEIGHER Respiratory Rate 20 05/16/2023 2:02 PM SHELLFISH WEIGHER Oxygen Saturation 98% 05/16/2023 2:02 PM SHELLFISH WEIGHER Inhaled Oxygen Concentration - - Weight - - Height - - Body Mass Index - - Plan of Treatment Health Maintenance Due Date Last Done Comments BONE DENSITY TESTING 1939 DTAP/TDAP/TD VACCINES (1 - Tdap) 1958 PNEUMOCOCCAL VACCINE 50+ (1 of 1 - PCV) 1989 ZOSTER VACCINE (1 of 2) 1989 Respiratory Syncytial Virus (RSV) Vaccine Pt: or over 60 yrs (1 - 1-dose 75+ series) 2014 COVID-19 VACCINE (2023-2 5 season) 2023 DEPRESSION SCREENING 04/24/2024 MEDICARE AWV CALENDAR YEAR 2024 INFLUENZA VACCINE (Season Ended) 2024 HEPATITIS B VACCINE Aged Out No longe r eligible based on patient's age to complete this topic HIB VACCINE Aged Out No longer eligi ble based on patient's age to complete this topic HPV VACCINE Aged Out No longer eligi ble based on patient's age to complete this topic MENINGOCOCCAL (Group B) VACC INE SHARED DECISION-MAKING Aged Out No longer eligibl e based on patient's age to complete this topic MENINGOCOCCAL GROUPS A/C/Y/W VACCINE Aged Out No longer eligible b ased on patient's age to complete this topic Insurance [employer] MANAGED MEDICARE ADV Member Subscriber Plan / Payer (Ef fective 2023-Present) Name:Debbie Trejo Relation to Subscriber:Self Name:Debbie Trejo Payer ID:[id number] (NAIC) Type:Medicare-Managed Care Address: [place] [id number] Care Teams Health Companion Relationship Specialty Start Date End Date Antony Burger PA-C [address] [place] [address] PCP - General Physician Commercial Plumber 03/28/23
--- OUTSIDE RECORDS SUMMARY | 2024-08-16 07:29 | XMS_ITS | Patient Health Record ---
Author Organization [facility] Address [address] [place] [address] Care Team Providers Care Property Custodian Name Role Phone Jayla Pardo Unavailable [phone] Migration, Provider Unavailable Unavailable Allergies No Known Allergies Reason For Referral No Information Medications Medication SIG (Take, Route, Frequency, Duration) Notes Start Date End Date Status Carbidopa-Levodopa ER 50-200 mg Oral 08/14/2023 Active Letrozole 2.5 MG Oral 08/14/2023 Ac tive Paxlovid (300/100) 20 x 150 MG & 10 x 100MG Oral *Reorder from [employer] for eRx and Interaction Alerts* 08/14/2023 Active Megestrol Acetate 40 MG/ML Oral 08/14/2023 Active QUEtiapine Fumarate 50 MG 2 tablet at bedtime Oral bedtime for 30 days Active Ondansetron 4 MG Oral 08/14/2023 Ac tive Immunizations Vaccine Route Administration Date Status Comme nts Influenza virus vaccine, quadrivalent (IIV4), split virus, 0.25 mL dosage Unknown 02/20/2017 Administered Influenza virus vaccine, quadrivalent (IIV4), split virus, 0.25 mL dosage Unknown 04/24/2017 Administered Influenza virus vaccine, quadrivalent (IIV4), split virus, 0.25 mL dosage Unknown 02/27/2019 Administered Influenza, high dose seasonal Unknown 03/06/2014 Admini stered Influenza, high dose seasonal Unknown 02/02/2015 Admini stered Influenza, high dose seasonal Unknown 02/23/2016 Admini stered Influenza, high dose seasonal Unknown 02/26/2018 Admini stered Influenza, high dose seasonal Unknown 02/27/2019 Admini stered Influenza, high dose seasonal Unknown 01/27/2020 Admini stered Pfizer [employer] Covid-19 Vac cine 2nd dose Unknown 06/25/2020 Administered Pfizer [employer] Covid-19 Vac cine 2nd dose Unknown 07/16/2020 Administered Pfizer [employer] Covid-19 Vac cine 2nd dose Unknown 03/08/2021 Administered Pneumococcal conjugate PCV 13 Unknown 08/26/2015 Admini stered Pneumococcal conjugate PCV 7 Unknown 04/24/2016 Adminis tered Pneumococcal polysaccharide PPV23 Unknown 04/24/2016 Ad ministered Social History Sex Assigned At : Social History Observation Description Sex Assigned At Female Problems Problem Type SNOMED Code ICD Code Onset Dates Problem Status W/U Status Risk Notes Problem Paranoid schizophrenia (12892801) Paranoid schizophrenia (F20.0) 08/14/19 24 Active confirmed Problem Generalized anxiety disorder (77156432) Generalized anxiety disorder (F41.1) 08/14/19 24 Active confirmed Problem 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 subacute dyskinesia (G24.01) 08/14/19 24 Active confirmed Problem Alzheimer's disease with late onset (139517586) Alzheimer's disease with late onset (G30.1) 08/14/19 24 Active confirmed Encounters Encounter Location Date Provider Diagnosis [facility] [address] [place] [address] 10/24/2023 Jayla Pardo [facility] [address] [place] [address] 11/21/2023 Jayla Pardo Paranoid schizophrenia F20.0 ; Generalized anxiety disorder F41.1 ; Alzheimer's disease with late onset G30.1 and Drug induced subacute dyskinesia G24.01 [facility] [address] [place] [address] 07/19/2024 Jayla Pardo Paranoid schizophrenia F20.0 ; Generalized anxiety disorder F41.1 ; Alzheimer's disease with late onset G30.1 and Drug induced subacute dyskinesia G24.01 [facility] [address] [place] [address] 09/09/2023 Provider Migration [facility] [address] [place] [address] 09/10/2023 Provider Migration [facility] [address] [place] [address] 10/25/2023 Jayla Pardo [facility] [address] [place] [address] 10/25/2023 Jayla Edvin Paranoid schizophrenia F20.0 Assessments Encounter Date Diagnosis (ICD Code) Assessment Notes Treatment Notes Treatment Clinical Notes Section Notes 10/25/2023 Paranoid schizophrenia (ICD-10 - F20.0) 11/21/2023 Paranoid schizophrenia (ICD-10 - F20.0) 1. Acute exacerbation of chronic paranoid schizophrenia - Seroquel 100 mg at bedtime will give (2 tabs of 50 mg tabs related to easier to swallow) daughter crush rx Encourage boost or Ensure 2-3 times a day monitor weight obtain labs PCP F20.0: Paranoid schizophrenia quetiapine 50 mg tablet - Take 2 tablet(s) every day by oral route at bedtime for 90 days. Qty: (180) tablet Refills: 0 Pharmacy: [facility] Note to Pharmacy: 2. Generalized anxiety disorder - F41.1: Generalized anxiety disorder 3. Alzheimer's disease -patient has skilled health monthly in home Parkinson progressing 4. Tardive dyskinesia -AIMS 15 [place] or [place] family refused related to cost 11/21/2023 Generalized anxiety disorder (ICD-10 - F41.1) 1. Acute exacerbation of chronic paranoid schizophrenia - Seroquel 100 mg at bedtime will give (2 tabs of 50 mg tabs related to easier to swallow) daughter crush rx Encourage boost or Ensure 2-3 times a day monitor weight obtain labs PCP F20.0: Paranoid schizophrenia quetiapine 50 mg tablet - Take 2 tablet(s) every day by oral route at bedtime for 90 days. Qty: (180) tablet Refills: 0 Pharmacy: [facility] Note to Pharmacy: 2. Generalized anxiety disorder - F41.1: Generalized anxiety disorder 3. Alzheimer's disease -patient has skilled health monthly in home Parkinson progressing 4. Tardive dyskinesia -AIMS 15 [place] or [place] family refused related to cost 07/19/2024 Paranoid schizophrenia (ICD-10 - F20.0) 1.paranoid schizophrenia - Seroquel 100 mg at bedtime will give (2 tabs of 50 mg tabs related to easier to swallow) daughter crush rx Encourage boost or Ensure 2-3 times a day monitor weight obtain labs PCP [facility] Note to Pharmacy: 2. Generalized anxiety disorder - 3. Alzheimer's disease -patient has skilled health monthly in home Parkinson progressing Neurologist prescribed Namenda 4. Tardive dyskinesia - HX AIMS 15 [place] or [place] family refused related to cost 07/19/2024 Generalized anxiety disorder (ICD-10 - F41.1) 1.paranoid schizophrenia - Seroquel 100 mg at bedtime will give (2 tabs of 50 mg tabs related to easier to swallow) daughter crush rx Encourage boost or Ensure 2-3 times a day monitor weight obtain labs PCP [facility] Note to Pharmacy: 2. Generalized anxiety disorder - 3. Alzheimer's disease -patient has skilled health monthly in home Parkinson progressing Neurologist prescribed Namenda 4. Tardive dyskinesia - HX AIMS 15 [place] or [place] family refused related to cost 11/21/2023 Alzheimer's disease with late onset (ICD-10 - G30.1) 1. Acute exacerbation of chronic paranoid schizophrenia - Seroquel 100 mg at bedtime will give (2 tabs of 50 mg tabs related to easier to swallow) daughter crush rx Encourage boost or Ensure 2-3 times a day monitor weight obtain labs PCP F20.0: Paranoid schizophrenia quetiapine 50 mg tablet - Take 2 tablet(s) every day by oral route at bedtime for 90 days. Qty: (180) tablet Refills: 0 Pharmacy: [facility] Note to Pharmacy: 2. Generalized anxiety disorder - F41.1: Generalized anxiety disorder 3. Alzheimer's disease -patient has skilled health monthly in home Parkinson progressing 4. Tardive dyskinesia -AIMS 15 [place] or [place] family refused related to cost 07/19/2024 Alzheimer's disease with late onset (ICD-10 - G30.1) 1.paranoid schizophrenia - Seroquel 100 mg at bedtime will give (2 tabs of 50 mg tabs related to easier to swallow) daughter crush rx Encourage boost or Ensure 2-3 times a day monitor weight obtain labs PCP [facility] Note to Pharmacy: 2. Generalized anxiety disorder - 3. Alzheimer's disease -patient has skilled health monthly in home Parkinson progressing Neurologist prescribed Namenda 4. Tardive dyskinesia - HX AIMS 15 [place] or [place] family refused related to cost 11/21/2023 Drug induced subacute dyskinesia (ICD-10 - G24.01) 1. Acute exacerbation of chronic paranoid schizophrenia - Seroquel 100 mg at bedtime will give (2 tabs of 50 mg tabs related to easier to swallow) daughter crush rx Encourage boost or Ensure 2-3 times a day monitor weight obtain labs PCP F20.0: Paranoid schizophrenia quetiapine 50 mg tablet - Take 2 tablet(s) every day by oral route at bedtime for 90 days. Qty: (180) tablet Refills: 0 Pharmacy: [facility] Note to Pharmacy: 2. Generalized anxiety disorder - F41.1: Generalized anxiety disorder 3. Alzheimer's disease -patient has skilled health monthly in home Parkinson progressing 4. Tardive dyskinesia -AIMS 15 [place] or [place] family refused related to cost 07/19/2024 Drug induced subacute dyskinesia (ICD-10 - G24.01) 1.paranoid schizophrenia - Seroquel 100 mg at bedtime will give (2 tabs of 50 mg tabs related to easier to swallow) daughter crush rx Encourage boost or Ensure 2-3 times a day monitor weight obtain labs PCP [facility] Note to Pharmacy: 2. Generalized anxiety disorder - 3. Alzheimer's disease -patient has skilled health monthly in home Parkinson progressing Neurologist prescribed Namenda 4. Tardive dyskinesia - HX AIMS 15 [place] or [place] family refused related to cost Plan Of Treatment No Information Insurance Providers Payer Name Payer Address Payer Phone Subscriber Number Group Number Insured Name Patient Relationship to Insured Coverage Start Date Coverage End Date [employer] Medicare Replacement/ Advantage - Hmo [address] [address] [place] [address] [id number] MOE BROWER Self - patient is the insured Medical (General) History Medical History History ICD Code Problems: Acute exacerbation of chronic paranoid schizophrenia Alzheimer's disease Generalized anxiety disorder Parkinson's disease Senile dementia with delusion Tardive dyskinesia , Surgical History Surgery Date(Month/Year) Removal of gallbladder (94018) 3
--- OUTSIDE RECORDS SUMMARY | 2024-08-16 07:29 | XMS_ITS | Continuity of Care Document ---
Author Organization [facility] Address [address] [place] [address] Insurance Providers Payer Plan Claims Address Claims Phone Policy Number Group Number Relation Employer Guarantor Name Guarantor Guarantor Address Guarantor Phone [employer] [id number] Jimmie Trejo [address] [place], [place] [id number] [employer] [id number] Jimmie Trejo [address] [place], [place] [id number] [facility] [id number] [facility] [id number] Jimmie Trejo [address] [place] [address] [id number] Problems Unknown Problems Results No Results Allergies, adverse reactions, alerts No known allergies and adverse reactions Medications No administered medications reported Vital Signs Date Vital Result Comment 04/02/2024 Inhaled Oxygen Concentration 21.0 % N Faces Pain Scale 0.0 N Temperature 97.9 [degF] N Oxygen Saturation 96 % N Respiratory Rate 12 /min N Heart Rate 64 /min N Blood Pressure Systolic 118 mm[Hg] N Blood Pressure Diastolic 66 mm[Hg] N Body Height 61 [in_i] N Body Weight 85 [lb_av] N Body Mass Index 16.1 kg/m2 N Social History No smoking Hx information available Functional Status Category Condition Date Problem (Mobility (on level surfaces): Immobile or 50 yards) Mobility (on level surfaces): Immobile or 50 yards 03/22/2023 Problem (Mobility (on level surfaces): Immobile or 50 yards) Mobility (on level surfaces): Immobile or 50 yards 06/28/2023 Problem (Mobility (on level surfaces): Immobile or 50 yards) Mobility (on level surfaces): Immobile or 50 yards 08/10/2023 Problem (Mobility (on level surfaces): Immobile or 50 yards) Mobility (on level surfaces): Immobile or 50 yards 11/27/2023 Problem (Feeding: Unable) Feeding: Unable 2023 Problem (Bathing: Dependent) Bathing: Dependent 04/02/2024 Problem (Grooming: Needs hel p with personal care) Grooming: Needs help with personal care 04/02/2024 Problem (Dressing: Dependent) Dressing: Dependen t 04/02/2024 Problem (Bowels: Incontinent (or needs to be given enemas)) Bowels: Incontinent (or needs to be given enemas) 04/02/2024 Problem (Bladder: Incontinen t, or catheterized and unable to manage alone) Bladder: Incontinent, or catheterized and unable to manage alone 04/02/2024 Problem (Toilet use: Dependent) Toilet use: Depe ndent 04/02/2024 Problem (Transfers (bed to c hair and back): Unable, no sitting balance) Transfers (bed to chair and back): Unable, no sitting balance 04/02/2024 Problem (Mobility (on level surfaces): Immobile or 50 yards) Mobility (on level surfaces): Immobile or 50 yards 04/02/2024 Problem (Stairs: Unable) Stairs: Unable 024 Problem (Total score: 0) Total score: 0 024
[2024-08-16 07:31] VITALS: BP 157/86; PULSE 82; RESP 14; TEMP 37; O2SAT 96
--- OUTSIDE RECORDS SUMMARY | 2024-08-16 07:41 | XMS_ITS | Continuity of Care Document ---
Author Organization [facility] Address [address] [place] [address] [facility] [address] [place] [address] Phone Care Team Providers Care Spanish Tutor Name Role Phone Polly Garsia Unavailable Unavailable Procedures Procedure Date Eye Exam, New Patient Advance Directives Directive Yes / No Effective Date File Name No Information Encounters Encounter Description Practice Location Reason(s) For Visit Diagnoses Date Provider Providers Copied on Encounter [facility], [address], [place], [place], [id number], [place] tel:[phone] [facility] No Information [phone] Sun Matias. [address] , [address], [place], [address], [place]. tel:[phone] Family History Family Member Type Diagnosis Age At Onset No Information Payers Payer name Insurance type Covered constitution party ID Authoriza tion(s) [place] [id number] Social History Type Description Quantity Date Captured [...]
--- NOTE | 2024-08-16 07:52 | ED_ITS ---
HPI - General Adult General Chief complaint: Skin/Abscess/Foreign Body Stated complaint: rash on elbows and behind, might be infected Time Seen by Provider: 08/16/24 07:27 History of Present Illness HPI narrative: 84-year-old female present to the emergency department for evaluation for right elbow wound and wound on sacrum. Daughter has been treating wounds to the elbow with triamcinolone cream and a nystatin cream. Related Data Home Medications ?Medication ?Instructions ?Recorded ?Confirmed ?Last Taken ?Type quetiapine 100 mg tablet (Seroquel) 100 mg PO QHS 04/05/22 07/12/24 2 Days Ago History ~07/09/22 acetaminophen 650 mg 650 mg PO Q8H 07/26/23 07/12/24 Unknown History tablet,extended release (Tylenol Arthritis Pain) polyethylene glycol 3350 17 17 g PO DAILY 07/26/23 07/12/24 Unknown History gram/dose oral powder (Miralax) Allergies Allergy/AdvReac Type Severity Reaction Status Date / Time haloperidol Allergy Severe Difficulty Verified 08/16/24 07:41 Breathing Review of Systems Review of Systems: All systems reviewed & are unremarkable except as noted in HPI and below PMFSH Past Medical History Medical History Breast cancer Cerebrovascular accident Hypertension Anxiety and depression Dementia Parkinsons disease Surgical History Surgical History History of cholecystectomy By Dr. Concepcion on 07/13/22. History of lumpectomy Family History Family History Other Glaucoma Hypertension Social History Social History Social History: Surrogate medical decision maker: Leigh Maldonado, daughter. Code status: Full code. Smoking status: Never smoker Alcohol intake: never Substance use: never Substance use type: does not use Lack of Transportation: No Lack of Food: Never True Current Housing: I Have Housing Concerned About Future Housing: No Difficulty Paying Gas/Electric Bills: No Difficulty Paying for Meds: No Currently Unemployed: No Education: Trade/Vocational Certificate Difficulty w/ Childcare or Family Care: No Living arrangements: with family Additional living arrangements comments: Originally from the [facility]. She has 4 children. Lives with daughter Leigh. 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 Gender identity (if verbalized by the patient): Female Spiritual care concerns: No Exam Narrative: APPEARANCE: Well appearing, no pain, no distress, well-nourished. HEAD: normocephalic, atraumatic. EYES: PERRLA/EOMI, conjunctivae clear. NOSE: Normal no drainage EARS:TMS clear with good light reflex. THROAT: Pharynx clear, no exudate. NECK: Supple. No adenopathy, no masses. RESPIRATORY: Airway patent, respirations nonlabored. Clear to auscultation bilaterally, no rales, rhonchi, wheezing. CARDIOVASCULAR: Regular rate and rhythm without murmurs rubs or gallops. ABDOMINAL: Soft, nontender, nondistended, normal bowel sounds MUSCULOSKELETAL: Moves all extremities. Strength/ROM intact, No edema, No calf tenderness. NEURO: Alert. Cranial nerves II through XII intact. Good gait. Good coordination SKIN: Area ulcerated scan at right elbow and at sacrum with no surrounding erythema Course Vital Signs Vital signs: Vital Signs Temperature 98.6 F 08/16/24 07:31 Pulse Rate 82 08/16/24 07:31 Respiratory Rate 14 08/16/24 07:31 Blood Pressure 157/86 H 08/16/24 07:31 Pulse Oximetry 96 08/16/24 07:31 Oxygen Delivery Room Air 08/16/24 07:31 Temperature 98.6 F 08/16/24 07:31 Pulse Rate 82 08/16/24 07:31 Respiratory Rate 14 08/16/24 07:31 Blood Pressure 157/86 H 08/16/24 07:31 Pulse Oximetry 96 08/16/24 07:31 Oxygen Delivery Room Air 08/16/24 07:31 Medical Decision Making MDM Narrative Medical decision making narrative: 84-year-old female present to the emergency department for evaluation for right elbow wound and wound on sacrum. Daughter has been treating wounds to the elbow with triamcinolone cream and a nystatin cream. Patient will be switched to Bactroban. Will have close follow-up with her primary care physician. Differential Diagnosis Differential Diagnosis: Cellulitis, ulcer, pressure wound Vital Signs Vital Signs: Vital Signs Temperature 98.6 F 08/16/24 07:31 Pulse Rate 82 08/16/24 07:31 Respiratory Rate 14 08/16/24 07:31 Blood Pressure 157/86 H 08/16/24 07:31 Pulse Oximetry 96 08/16/24 07:31 Oxygen Delivery Room Air 08/16/24 07:31 Temperature 98.6 F 08/16/24 07:31 Pulse Rate 82 08/16/24 07:31 Respiratory Rate 14 08/16/24 07:31 Blood Pressure 157/86 H 08/16/24 07:31 Pulse Oximetry 96 08/16/24 07:31 Oxygen Delivery Room Air 08/16/24 07:31 Discharge Plan Discharge Clinical Impression: Pressure ulcer of elbow, Sacral ulcer Patient Disposition: Home Condition: Stable Instructions: Antibiotic Form Additional Instructions: Antibiotic ointment right elbow sacral ulcer as described. Continue to have close follow-up with your primary care physician. If you have any worsening symptoms then please call or return to the emergency department. Patient Language: Afghan Prescriptions: New mupirocin 2 % ointment 1 applic topical BID Qty: 50 0RF No Action acetaminophen [Tylenol Arthritis Pain] 650 mg tablet extended release 650 mg PO Q8H polyethylene glycol 3350 [Miralax] 17 gram/dose powder 17 g PO DAILY quetiapine [Seroquel] 100 mg Tablet 100 mg PO QHS (DME) diaper,brief,adult,disposable Misc See Rx Instructions .Route Qty: 60 5RF Rx Instructions: As directed (DME) Pads For Women Pad See Rx Instructions .Route Qty: 64 5RF Rx Instructions: As directed memantine 5 mg tablet See Rx Instructions .ROUTE .COMPLEX Qty: 160 3RF Dose Instruction: TAKE 1 TABLET BY MOUTH EVERY MORNING FOR 2 WEEKS, THEN 1 TABLET TWICE DAILY TO CONTINUE Rx Instructions: TAKE 1 TABLET BY MOUTH EVERY MORNING FOR 2 WEEKS, THEN 1 TABLET TWICE DAILY TO CONTINUE carbidopa-levodopa [Sinemet] 25-100 mg tablet 1 tablet PO TID Qty: 90 6RF triamcinolone acetonide 0.1 % cream 1 applic topical TID Qty: 30 1RF Rx Instructions: Use with nystatin cream in equal parts. nystatin 100,000 unit/gram cream 1 applic topical TID Qty: 30 1RF Rx Instructions: Use with triamcinolone cream in equal amounts Follow-up/Referrals: Brian Longoria, [Primary Care Provider] -
[2024-08-16] MEDS: MUPIROCIN 2% OINT 22 GM TUBE 1 APPLIC TOPICAL (08:24)
== END 2024-08-16 08:26 | disposition home or self-care (01) ==
PROVIDERS: Emergency Provider Emergency Medicine; PCP Internal Medicine
DX: L89.019 Pressure ulcer of right elbow, unspecified stage (principal); L89.159 Pressure ulcer of sacral region, unspecified stage; Z85.3 Personal history of malignant neoplasm of breast; I10 Essential (primary) hypertension; F41.8 Other specified anxiety disorders; F03.90 Unspecified dementia, unspecified severity, without behavioral disturbance, psychotic disturbance, mood disturbance, and anxiety; G20.A1 Parkinson's disease without dyskinesia, without mention of fluctuations; Z86.73 Personal history of transient ischemic attack (TIA), and cerebral infarction without residual deficits
CPT/HCPCS: 99283; A9270

== ENCOUNTER 2025-04-12 07:43 | Outpatient (CLI) | payer MEDICARE, SELFPAY ==
[2025-04-12 08:54] LABS: Hematocrit 40.1 % (37.0-47.0); Hemoglobin 12.4 g/dL (12.0-15.0); Immature Granulocyte Percent A 0.3 % (0-0.5); Lymphocytes Absolute Auto 2.61 K/mm3 (0.9-3.2); Mean Corpuscular HGB Conc 30.9 g/dl (32-36); Mean Corpuscular Hemoglobin 27.2 pg (26-34); Mean Corpuscular Volume 87.9 fl (80-100); Nucleated Red Blood Cells Absolute Auto 0.000 K/mm3 (0.0-0.012); Nucleated Red Blood Cells Perc 0.0 % (0.0-0.2); Platelet Count Result 144 k/mm3 (150-375); Red Blood Count 4.56 M/mm3 (4.2-5.4); White Blood Count 6.7 K/mm3 (4.5-10.0)
[2025-04-12 09:16] LABS: Alanine Aminotransferase 17 U/L (6-35); Albumin Level 4.4 g/dL (3.5-5.1); Alkaline Phosphatase 68 U/L (38-126); Anion Gap 10 mmol/L (4-12); Aspartate Amino Transferase 52 U/L (14-36); Bilirubin,Total 0.4 mg/dL (0.2-1.3); Blood Urea Nitrogen 26 mg/dL (7-17); Calcium 10.1 mg/dL (8.4-10.2); Carbon Dioxide 29 mmol/L (22-30); Chloride 105 mmol/L (98-107); Estimated Glomerular Filt Rate > 60; Glucose 116 mg/dL (65-110); Potassium 4.5 mmol/L (3.4-5.0); Sodium 144 mmol/L (137-145); Total Protein 8.8 g/dL (6.3-8.2)
[2025-04-12 09:51] LABS: Thyroid Stimulating Hormone 2.670 uIU/mL (0.465-4.680)
[2025-04-12 10:27] LABS: Vitamin B12 676.0 pg/mL (239-931)
[2025-04-14 15:09] LABS: Albumin 3.7 g/dL (2.9-4.4); Alpha-1-Globulin 0.3 g/dL (0.0-0.4); Alpha-2-Globulin 0.7 g/dL (0.4-1.0); Gamma Globulin 2.2 g/dL (0.4-1.8)
== END 2025-04-12 07:44 | disposition home or self-care (01) ==
PROVIDERS: PCP Internal Medicine; Visit Provider Internal Medicine
DX: G30.9 Alzheimer's disease, unspecified (principal); F02.80 Dementia in other diseases classified elsewhere, unspecified severity, without behavioral disturbance, psychotic disturbance, mood disturbance, and anxiety; E55.9 Vitamin D deficiency, unspecified; R77.9 Abnormality of plasma protein, unspecified; I10 Essential (primary) hypertension; R63.6 Underweight
CPT/HCPCS: 36415; 80053; 82306; 82607; 82746; 84155; 84165; 84443; 85025